=== PATIENT | female | born 1945 | race Two or more races ===

== ENCOUNTER 2024-12-11 12:16 | Outpatient (REF) | payer OTHER, SELFPAY ==
--- OUTSIDE RECORDS SUMMARY | 2024-12-11 13:19 | XMS_ITS | Encounter Summary ---
Author Organization [facility] Address [address] [place] [address] Care Team Providers Care Charge Loader Name Role Phone Naina Steve MD Primary Care Provider [phone] Reason for Visit * Reason Comments Follow-up Er follow Encounter Details Date Type Department Care Team (Late st Contact Info) Description 11/27/2024 11:30 AM EST Office Visit Adult Medicine [address] [phone] Naina Steve MD [address] [place] [phone] RSV (respiratory syncytial virus infection) (Primary Dx) Social History Tobacco Use Types Packs/Day Years Used Date Smoking Tobacco: Never Smokeless Tobacco: Never Tobacco Cessation:Counseling Given: Not Answered Alcohol Use Standard Drinks/Week Comments Never 0 (1 standard drink = 0.6 oz pur e alcohol) Sex and Gender Information Value Date Recorded Sex Assigned at Not on file Gender Identity Not on file Sexual Orientation Not on file Job Start Date Occupation Industry Not on file Not on file Not on file documented as of this encounter Last Filed Vital Signs Vital Sign Reading Time Taken Comments Blood Pressure 128/64 11/27/2024 11:25 AM EST Pulse 90 11/27/2024 11:25 AM EST Temperature 36.6 ??C (97.9 ??F) 11/27/2024 11:[address] Respiratory Rate 22 11/27/2024 11:25 AM EST Oxygen Saturation 98% 11/27/2024 11:25 AM EST Inhaled Oxygen Concentration - - Weight 61.2 kg (135 lb) 11/27/2024 11:25 AM EST Height 162.6 cm (5' 4 ) 11/27/2024 11:25 AM EST Body Mass Index 23.17 11/27/2024 11:25 AM EST documented in this encounter Ordered Prescriptions Prescription Sig Dispensed Refills Start Date End Da te albuterol HFA (Proventil HFA) 90 mcg/actuation inhaler Inhale 2 puffs by mouth every 4 (four) hours if needed for wheezing or shortness of breath. 6.7 g 11/27/2024 11/27/2025 guaiFENesin (ROBITUSSIN) 100 mg/5 mL liquid Take 10 mL (200 mg total) by mouth 3 (three) times a day if needed for cough for up to 10 days. 120 mL 11/27/2024 12/07/2024 documented in this encounter Progress Notes * Naina Steve MD - 11/27/2024 11:30 AM EST Images from the original note were not included. CHIEF COMPLAINT: Follow-up (Er follow/) IDENTIFIER: Verna Finch is a 79 y.o. old female. HPI: Patient is a 79-year-old female who is here for an ER follow-up. Patient was evaluated at [facility] on 11/25/2024 for cough and shortness of breath. Patient reported cough and shortness of breath for about 1 week associated with generalized weakness. Vitals in the ER were temp 99.1, heart rate 69, blood pressure 122/64, 97% on room air. Patient was found to be RSV positive. Blood work sodium 135, potassium 3.7, chloride 107, creatinine 0.93, WBC 5.6,hemoglobin 10.7, platelet 191. Patient underwent x-ray which did not show any acute infiltrate. Coarse reticular markings again noted in the right and left chest that are suggestive of regions of fibrosis and/or bronchiectasis. Patient underwent EKG which was reported to be normal sinus rhythm witha heart rate of 67. Patient is accompanied by her at today's visit, patient's daughter Bailee is also present via phone call. Patient has noted some improvement in her symptoms since she waS in the ER. The family has also noticed improvement in her breathing, previously she was short of breath at rest alongwith audible wheezing but according to the family that has improved, she still feels short of breath but mainly with activity (this has been a chronic symptom as she was evaluated by pulmonology recently). 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 for 30 days pantoprazole (PROTONIX) 40 mg EC tablet Take 1 tablet (40 mg total) by mouth 1 (one) time each day.for 90 days ALLERGIES: Patient has no known allergies. PHYSICAL EXAM: Blood pressure 128/64, pulse 90, temperature 36.6 ??C (97.9 ??F), temperature source Temporal, resp. rate 22, height 1.626 m (64 ), weight 61.2 kg (135 lb), SpO2 98%. Body mass index is 23.17 kg/m??.Plan is deferred until next visit APPEARANCE: Alert and in no acute distress EYES: PERRLA, conjunctiva and sclera normal HEART: RRR with normal S1 and S2, no murmurs, no gallops, no JVD appreciated LUNG: right sided crackles EXTREMITIES: Extremities warm and well perfused without clubbing, cyanosis, or edema LABS: IMPRESSION: 1. RSV (respiratory syncytial virus infection) ASSESSMENT/PLAN: Verna was seen today for follow-up. Diagnoses and all orders for this visit: RSV (respiratory syncytial virus infection) (Primary) Other orders - guaiFENesin (ROBITUSSIN) 100 mg/5 mL liquid; Take 10 mL (200 mg total) by mouth 3 (three) times aday if needed for cough for up to 10 days. - albuterol HFA (Proventil HFA) 90 mcg/actuation inhaler; Inhale 2 puffs by mouth every 4 (four) hours if needed for wheezing or shortness of breath. Plan Patient was evaluated at [facility] on 11/25/2024 for cough and shortness of breath. Patient reported cough and shortness of breath for about 1 week associated with generalized weakness. Vitals in the ER were temp 99.1, heart rate 69, blood pressure 122/64, 97% on room air. Patient was found to be RSV positive. Blood work sodium 135, potassium 3.7, chloride 107, creatinine 0.93, WBC 5.6,hemoglobin 10.7, platelet 191. Patient underwent x-ray which did not show any acute infiltrate. Coarse reticular markings again noted in the right and left chest that are suggestive of regions of fibrosis and/or bronchiectasis. Patient underwent EKG which was reported to be normal sinus rhythm witha heart rate of 67. Patient is accompanied by her at today's visit, patient's daughter Bailee is also present via phone call. Patient has noted some improvement in her symptoms since she waS in the ER. The family has also noticed improvement in her breathing, previously she was short of breath at rest alongwith audible wheezing but according to the family that has improved, she still feels short of breath but mainly with activity (this has been a chronic symptom as she was evaluated by pulmonology recently). -Patient diagnosed with RSV 2 days ago, underwent x-ray which showed chronic changes, no acute infiltrate, patient symptoms are improving, was previously short of breath at rest and wheezing, no longer short of breath at rest or audible wheezing at rest. Continues to have symptoms of shortness of breath with activity which has been present chronically for the patient to some degree. Her oxygen saturation today is 98% on room air. I have prescribed albuterol inhaler that she can take as needed with activity. She continues to have a cough, I have given a prescription for Robitussin. She denies any fevers. Patient was advised to continue monitoring symptoms and if there is any worsening like development of fever, worsening cough, shortness of breath or wheezing to contact the office. Patient and familyverbalized understanding. Of note patient was also examined and questioned by my physician accountant assistant student and is in agreement with this. No follow-ups on file. No orders of the defined types were placed in this encounter. Recent Results (from the past 672 hour(s)) Comprehensive metabolic panel Collection Time: 11/19/24 10:14 AM Result Value Ref Range Sodium 136 133 - 145 mmol/L Potassium 3.7 3.5 - 5.5 mmol/L Chloride 106 96 - 110 mmol/L CO2 23 21 - 32 mmol/L Anion Gap 7 3 - 11 Glucose 156 (H) 70 - 100 mg/dL BUN 25 5 - 25 mg/dL Creatinine 1.04 0.50 - 1.10 mg/dL eGFR 55 (L) >=60 mL/min/1.73m2 BUN/Creatinine Ratio 24.0 Calcium 9.4 8.5 - 10.5 mg/dL AST (SGOT) 10 10 - 42 unit/L ALT (SGPT) 20 10 - 60 unit/L Alkaline Phosphatase 128 (H) 42 - 121 unit/L Total Protein 8.0 6.0 - 8.0 g/dL Albumin 3.1 (L) 3.2 - 5.0 g/dL Total Bilirubin 0.4 0.0 - 1.4 mg/dL CBC auto differential Collection Time: 11/19/24 10:14 AM Result Value Ref Range WBC 11.6 (H) 4.8 - 10.8 K/mcL RBC 3.50 (L) 3.80 - 4.80 M/mcL Hemoglobin 11.5 11.5 - 16.0 g/dL Hematocrit 36.5 35.0 - 47.0 % MCV 105.8 (H) 79.0 - 98.0 FL MCH 33.3 (H) 27.0 - 32.0 pcg MCHC 31.5 (L) 32.0 - 37.0 g/dL RDW 14.5 11.0 - 15.0 % Platelets 279 130 - 400 K/mcL MPV 10.5 7.0 - 11.0 FL NRBC 0.0 <1.0 % NRBC Absolute 0.00 <0.10 K/mcL Neutrophils Relative 72.9 % Lymphocytes Relative 17.9 % Monocytes Relative 8.0 % Eosinophils Relative 0.0 % Basophils Relative 0.2 % Immature Granulocytes Relative 1.0 % Neutrophils Absolute 8.47 (H) 1.50 - 7.00 K/mcL Lymphocytes Absolute 2.08 1.00 - 5.00 K/mcL Monocytes Absolute 0.93 0.20 - 1.00 K/mcL Eosinophils Absolute 0.00 0.00 - 0.50 K/mcL Basophils Absolute 0.02 0.00 - 0.20 K/mcL Immature Granulocytes Absolute 0.12 (H) 0.00 - 0.03 K/mcL Respiratory virus panel molecular study Collection Time: 11/25/24 1:59 PM Specimen: Nares; Swab Result Value Ref Range Adenovirus Detection by PCR Not Detected Not Detected Influenza A PCR Not Detected Not Detected Influenza B PCR Not Detected Not Detected Coronavirus 229E Not Detected Not Detected Coronavirus HKU1 Not Detected Not Detected Coronavirus OC43 Not Detected Not Detected Coronavirus NL63 Not Detected Not Detected Parainfluenza Virus 1 Not Detected Not Detected Parainfluenza Virus 2 Not Detected Not Detected Parainfluenza Virus 3 Not Detected Not Detected Parainfluenza Virus 4 Not Detected Not Detected RSV PCR Detected (A) Not Detected Human Metapneumovirus A and B Not Detected Not Detected Rhinovirus/Enterovirus Not Detected Not Detected Bordetella pertussis Not Detected Not Detected Bordetella parapertussis Not Detected Not Detected Mycoplasma pneumo by PCR Not Detected Not Detected Chlamydia pneumoniae Not Detected Not Detected SARS COV-2 Not Detected Not Detected Basic metabolic panel Collection Time: 11/25/24 2:06 PM Result Value Ref Range Sodium 135 133 - 145 mmol/L Potassium 3.7 3.5 - 5.5 mmol/L Chloride 107 96 - 110 mmol/L CO2 24 21 - 32 mmol/L Anion Gap 4 3 - 11 Glucose 153 (H) 70 - 100 mg/dL BUN 19 5 - 25 mg/dL Creatinine 0.93 0.50 - 1.10 mg/dL eGFR 63 >=60 mL/min/1.73m2 BUN/Creatinine Ratio 20.4 Calcium 8.7 8.5 - 10.5 mg/dL CBC auto differential Collection Time: 11/25/24 2:06 PM Result Value Ref Range WBC 5.6 4.8 - 10.8 K/mcL RBC 3.20 (L) 3.80 - 4.80 M/mcL Hemoglobin 10.7 (L) 11.5 - 16.0 g/dL Hematocrit 32.8 (L) 35.0 - 47.0 % MCV 102.2 (H) 79.0 - 98.0 FL MCH 33.3 (H) 27.0 - 32.0 pcg MCHC 32.6 32.0 - 37.0 g/dL RDW 14.2 11.0 - 15.0 % Platelets 191 130 - 400 K/mcL MPV 9.6 7.0 - 11.0 FL NRBC 0.0 <1.0 % NRBC Absolute 0.00 <0.10 K/mcL Manual differential Collection Time: 11/25/24 2:06 PM Result Value Ref Range Neutrophils % 55.0 % Bands % 10.0 % Lymphocytes % 30.0 % Monocytes % 4.0 % Eosinophils % 0.0 % Basophils % 0.0 % Metamyelocytes % 1.0 (H) % Neutrophils Absolute Manual 3.08 1.50 - 7.00 K/mcL Bands Absolute Manual 0.56 (H) 0.00 - 0.00 K/mcL Lymphocytes Absolute 1.68 1.00 - 5.00 K/mcL Monocytes Absolute Manual 0.22 0.20 - 1.00 K/mcL Eosinophils Absolute Manual 0.00 0.00 - 0.50 K/mcL Basophils Absolute Manual 0.00 0.00 - 0.20 K/mcL Metamyelocytes Absolute Manual 0.06 (H) 0.00 - 0.00 K/mcL Rbc Morphology Consistent with indices Consistent with indices, Normal for [place] Platelet Morphology - WAM Normal Normal Vacuolated Neutrophils Present Present (A) (none) ECG 12 lead Collection Time: 11/25/24 3:26 PM Result Value Ref Range Ventricular Rate ECG 67 BPM Atrial Rate 67 BPM P-R Interval 144 ms QRS Duration 84 ms Q-T Interval 434 ms QTc 458 ms P Wave [place] 45 degrees R [place] 12 degrees T [place] 86 degrees ECG Interpretation Normal sinus rhythm Left ventricular hypertrophy with repolarization abnormality Abnormal ECG When compared with ECG of 18-FEB-2024 14:57, Premature ventricular complexes are no longer Present Non-specific change in ST segment in Anterior leads Confirmed by Anderson CHEUNG, [facility] ([id number]) on 11/26/2024 6:29:12 AM Naina Steve MD on 11/27/2024 at 5:07 PM EST documented in this encounter Plan of Treatment Upcoming Encounters Date Type Department Care Team (Late st Contact Info) Description 02/25/2025 9:15 AM EDT Office Visit [facility] Hematology Oncology [address] [place] [id number] Jose Francisco Izquierdo MD [address] [place] [address] 03/06/2025 1:15 PM EDT Office Visit Adult Medicine [facility] [place] [place] [address] [place] [address] Naina Steve MD [address] [place] [address] documented as of this encounter Visit Diagnoses Diagnosis RSV (respiratory syncytial virus infection)- Primary Respiratory syncytial virus (RSV) documented in this encounter Discontinued Medications Medication Sig Discontinue Reason Start Date End Da te metoprolol tartrate (LOPRESSOR) 25 mg tablet Take 0.5 tablets (12.5 mg total) by mouth 3 (three) times a day. Alternate therapy 09/28/2024 11/27/2024 amLODIPine (NORVASC) 2.5 mg tablet Take 1 tablet (2.5 mg total) by mouth 1 (one) time each day at the same time. Therapy completed 11/27/2024 documented as of this encounter Historical Medications * This list may reflect changes made after this encounter. Medication Sig Dispensed Refills Start Date End Date pantoprazole (PROTONIX) 40 mg EC tablet Take 1 tablet (40 mg total) by mouth 1 (one) time each day. for 90 days 08/09/2024 metoprolol succinate (TOPROL-XL) 25 mg 24 hr tablet Take 1 tablet (25 mg total) by mouth 1 (one) time each day. for 30 days 11/16/2024 added in this encounter Additional Health Concerns Infection Onset Date Last Indicated Resolved Time RSV 11/25/2024 11/25/2024 documented as of this encounter Care Teams Charge Loader Relationship Specialty Start Date End Date Naina Steve MD [address] [place] [id number] PCP - General 11/09/23 documented as of this encounter
--- OUTSIDE RECORDS SUMMARY | 2024-12-11 13:19 | XMS_ITS | Clinical Summary ---
Author Organization [facility] Address [address] [place] [address] Care Team Providers Care Database Administration Project Manager Name Role Phone Naina Steve MD Primary Care Provider [phone] Allergies No known active allergies Medications Medication Sig Dispensed Refills Start Date End Date Status amLODIPine (NORVASC) tablet 2.5 mg Take 1 tablet (2.5 mg total) by mouth daily. 0 Active metoprolol succinate (TOPROL-XL) 24 hr tablet 25 mg Take by mouth daily. 0 Active lisinopril (PRINIVIL,ZESTRIL) tablet 10 mg Take 1 tablet (10 mg total) by mouth daily. 0 Active Apoaequorin (Prevagen Extra Strength) 20 MG CAPS Take by mouth. 0 Active dexamethasone (DECADRON) 4 MG tablet Take 3 tablets (12 mg total) by mouth once a week. 36 tablet 3 07/31/2024 Active ondansetron (ZOFRAN) 4 MG tabletIndications:Sm oldering myeloma Take 1 tablet (4 mg total) by mouth every 8 (eight) hours as needed for nausea. 10 tablet 1 08/06/2024 Active pomalidomide (Pomalyst) 2 MG capsule TAKE 1 CAPSULE (2MG) BY MOUTH DAILY FOR 21 DAYS FOLLOWED BY 7 DAYS OFF 21 capsule 0 08/28/2024 Active Active Problems No known active problems Social History Tobacco Use Types Packs/Day Years Used Date Smoking Tobacco: Never Smokeless Tobacco: Never Alcohol Use Standard Drinks/Week Comments No 0 (1 standard drink = 0.6 oz pur e alcohol) Sex and Gender Information Value Date Recorded Sex Assigned at Not on file Gender Identity Not on file Sexual Orientation Not on file Job Start Date Occupation Industry Not on file Not on file Not on file Last Filed Vital Signs Vital Sign Reading Time Taken Comments Blood Pressure 170/68 07/30/2024 9:49 AM EDT Pulse 52 07/30/2024 9:49 AM EDT Temperature 36.8 ??C (98.3 ??F) 07/30/2024 9:49 AM ED T Respiratory Rate - - Oxygen Saturation 100% 07/30/2024 9:49 AM EDT Inhaled Oxygen Concentration - - Weight 62.6 kg (138 lb) 07/30/2024 9:49 AM EDT Height 161.3 cm (5' 3.5 ) 04/27/2024 10:35 AM ED T Body Mass Index 24.06 04/27/2024 10:35 AM EDT Plan of Treatment Health Maintenance Due Date Last Done Comments Depression Screening 1958 Preventative Health Evaluation 1964 Shingrix-Zoster Vaccine (1 of 2) 1965 Fall Risk Assessment 2011 Osteoporosis Screening (DEXA Scan) 2011 Pneumococcal Vaccine (2 of 2 - PCV) 10/29/2011 10/29/2010 RSV Adult > 60+ Yrs or (1 - 1-dose 75+ series) 2021 COVID-19 Vaccine ( - season) 2024 04/19/2022, 09/23/2021, 02/13/2021, Additional history exists Influenza Vaccine (#1) 2024 , 09/07/2022, 09/23/2021, Additional history exists DTap / Tdap / Td (2 - Td or Tdap) 08/20/2029 08/20/2019 Hepatitis C Screening Completed 05/04/2022 Hepatitis B Vaccines Aged Out No long er eligible based on patient's age to complete this topic RSV Ped < 20 months Aged Out No longe r eligible based on patient's age to complete this topic Care Teams Database Administration Project Manager Relationship Specialty Start Date End Date Naina Steve MD [address] [place] [id number] PCP - General Internal Medicine 12/23/23
--- OUTSIDE RECORDS SUMMARY | 2024-12-11 13:19 | XMS_ITS | Encounter Summary ---
Author Organization [facility] Address [address] [place] [address] Care Team Providers Care Lift Builder Whole Name Role Phone Naina Steve MD Primary Care Provider [phone] Reason for Visit * Reason Comments Follow-up Encounter Details Date Type Department Care Team (Late st Contact Info) Description 11/26/2024 9:45 AM EST Office Visit [facility] Hematology Oncology [address] [place] [id number] Jose Francisco Izquierdo MD [address] [place] [address] Smoldering multiple myeloma (SMM) (Primary Dx) Social History Tobacco Use Types Packs/Day Years Used Date Smoking Tobacco: Never Smokeless Tobacco: Never Alcohol Use Standard Drinks/Week Comments Never 0 [...] Sign Reading Time Taken Comments Blood Pressure 141/65 11/26/2024 9:50 AM EST Pulse 83 11/26/2024 9:50 AM EST Temperature 35.6 ??C (96.1 ??F) 11/26/2024 9:50 AM ES T Respiratory Rate - - Oxygen Saturation 100% 11/26/2024 9:50 AM EST Inhaled Oxygen Concentration - - Weight 63 kg (139 lb) 11/26/2024 9:50 AM EST Height - - Body Mass Index 23.13 11/25/2024 1:59 PM EST documented in this encounter Progress Notes * Jose Francisco Izquierdo MD - 11/26/2024 9:45 AM EST ONC CANCER FOLLOW UP CHIEF COMPLAINT: Follow-up IDENTIFIER:Verna Finch is a 79 y.o. female. 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 Oncology History Overview Note Patient found to have IgG kappa monoclonal gammopathy during the routine work-up in 2014, patient has no evidence of significant plasma cell disease progression for a while, patient was on surveillance for MGUS Patient sensed 2019 has been having some symptoms of fatigue, also developing some worsening anemiaand mild renal insufficiency Patient because of her mild worsening symptom underwent bone marrow biopsy in fall, bone marrow biopsy showed 10 to 15% plasma cell infiltration (IgG kappa restricted monoclonal disease), patient clearly has at least smoldering myeloma but decision made not to treat because patient was undergoing treatment of pulmonary fibrosis by her water meter mechanic (Dr. Treviño), she was getting Ofve Patient lab were getting worse (in the spring 2022), IgG was more than 5 g so we started patient inthe spring 2022 on Revlimid 25 mg day 1 today 21 with dexamethasone 20 mg weekly, patient toleratedtreatment well but unfortunately in May patient admitted to hospital with ischemic colitis. Patient was also planning to go to [place] so decision made to hold Revlimid until reassessment in September 2023 Patient in 2023 started on oral Pomalyst (there was a question of some side effect of Revlimid), with weekly low-dose dexamethasone PAST MEDICAL HISTORY: Patient Active Problem List Diagnosis Smoldering multiple myeloma (SMM) Primary hypertension Past Medical History: Diagnosis Date Anemia DX:Anemia Anemia 03/16/2021 DX:Anemia Bilateral cataracts 03/16/2021 DX:Bilateral cataracts Chronic bronchitis (CMS/HCC) DX:Chronic bronchitis (HCC) Diabetes mellitus (CMS/HCC) DX:Diabetes mellitus (HCC) Esophageal ulcer DX:Esophageal ulcer Generalized anxiety disorder 03/16/2021 DX:Generalized anxiety disorder GERD (gastroesophageal reflux disease) DX:GERD (gastroesophageal reflux disease) GERD without esophagitis 03/16/2021 DX:GERD without esophagitis Heart disease DX:Heart disease History of 2019 novel coronavirus disease (COVID-19) 10/2020 DX:History of 2019 novel coronavirus disease (COVID-19); COMMENT: mild case/ no hospitalization History of atopic dermatitis 03/16/2021 DX:History of atopic dermatitis Hypertension DX:Hypertension Hypertension 03/16/2021 DX:Hypertension Migraine with aura, not intractable, without status migrainosus 03/16/2021 DX:Migraine with aura, not intractable, without status migrainosus Monoclonal gammopathy DX:Monoclonal gammopathy Multiple myeloma (CMS/HCC) 03/16/2021 DX:Multiple myeloma ([facility]); COMMENT: Sees Dr. Izquierdo Osteoporosis DX:Osteoporosis Osteoporosis 03/16/2021 DX:Osteoporosis Pulmonary fibrosis ([facility]) PVC (premature ventricular contraction) 03/17/2021 DX:PVC (premature ventricular contraction); COMMENT: Sees Dr. Taurus Rich had holter and echo completed Stress incontinence 03/16/2021 DX:Stress incontinence Uterine procidentia 03/17/2021 DX:Uterine procidentia UTI (urinary tract infection) 03/16/2021 DX:UTI (urinary tract infection) Varicose veins of both legs with edema 03/16/2021 DX:Varicose veins of both legs with edema Vitamin D deficiency DX:Vitamin D deficiency Vitamin D deficiency 03/16/2021 DX:Vitamin D deficiency SOCIAL HISTORY: Social History Tobacco Use Smoking status: Never Smokeless tobacco: Never Substance Use Topics Alcohol use: Never FAMILY HISTORY: Family History Problem Relation Name Age of Onset Alzheimer's disease Mother Hypertension Father Family Status Relation Name Status Mother Father No partnership data on file Current Outpatient Medications: amLODIPine (NORVASC) 2.5 mg tablet, Take 1 tablet (2.5 mg total) by mouth 1 (one) time each day at the same time., Disp: , Rfl: aspirin 81 mg EC tablet, Take 1 tablet (81 mg total) by mouth 1 (one) time each day., Disp: , Rfl: dexAMETHasone (DECADRON) 4 mg tablet, Take 3 tabs(12 mg) by mouth once a week, Disp: 36 each, Rfl: 11 levothyroxine (SYNTHROID, LEVOTHROID) 50 mcg tablet, Take 1 tablet (50 mcg total) by mouth 1 (one) time each day before breakfast., Disp: 90 tablet, Rfl: 1 losartan (COZAAR) 50 mg tablet, TAKE 1 AND 1/2 TABLETS BY MOUTH DAILY, Disp: 135 tablet, Rfl: 1 Pomalyst 2 mg capsule, TAKE 1 CAPSULE (2MG) BY MOUTH DAILY FOR 21 DAYS FOLLOWED BY 7 DAYS OFF, Disp: 21 capsule, Rfl: 0 metoprolol tartrate (LOPRESSOR) 25 mg tablet, Take 0.5 tablets (12.5 mg total) by mouth 3 (three) times a day., Disp: , Rfl: No Known Allergies PHYSICAL EXAM: Visit Vitals BP (!) 141/65 (BP Location: Left arm, Patient Position: Sitting, BP Cuff Size: Adult) Pulse 83 Temp 35.6 ??C (96.1 ??F) (Temporal) Wt 63 kg (139 lb) SpO2 100% BMI 23.13 kg/m?? OB Status Postmenopausal Smoking Status Never BSA 1.7 m?? ECOG 1 APPEARANCE: Alert and oriented in no acute distress EYES: nonicteric sclera pink conjunctiva ORAL CAVITY: No mild erythema of oropharynx NECK: Neck supple, no cervical adenopathy, HEART: normal S1 and S2 LUNG: Distant breath sound otherwise clear bilaterally LYMPH NODES: No palpable superficial adenopathy ABDOMEN: soft, nontender and no organomegaly appreciated EXTREMITIES: No edema team [place] LABS: BUN 19, creatinine 0.93 and calcium 8.7 WBC 5.6, hemoglobin 10.7 g, hematocrit 32.8% and platelet count 1 91,000 IMPRESSION: 1. Smoldering multiple myeloma (SMM) 2........ URI secondary to RSV 79-year-old posterior speaking female, who has IgG kappa multiple myeloma, most likely smoldering myeloma, currently patient has been on Pomalyst with low-dose dexamethasone, which she has been tolerating well, labs are stable except because of RSV she is not feeling well as well as more anemic. I discussed with patient and her family about her URI as well as recommend to hold Pomalyst and dexamethasone this week and restart Pomalyst from following week. I discussed with the patient and family again about her plasma cell disease, risk benefit of therapeutic intervention etc. PLAN: Recommend to hold Pomalyst this week as well as dexamethasone and restart following week I will check labs prior to next visit in 3 months Jose Francisco Izquierdo MD Results: WBC Date Value Ref Range Status 11/25/2024 5.6 4.8 - 10.8 K/mcL Final Hemoglobin Date Value Ref Range Status 11/25/2024 10.7 (L) 11.5 - 16.0 g/dL Final Hematocrit Date Value Ref Range Status 11/25/2024 32.8 (L) 35.0 - 47.0 % Final Platelets Date Value Ref Range Status 11/25/2024 191 130 - 400 K/mcL Final Creatinine Date Value Ref Range Status 11/25/2024 0.93 0.50 - 1.10 mg/dL Final AST (SGOT) Date Value Ref Range Status 11/19/2024 10 10 - 42 unit/L Final documented in this encounter Plan of Treatment Upcoming Encounters Date Type Department Care Team (Late st Contact Info) Description 02/25/2025 9:15 AM EDT Office Visit [facility] Hematology Oncology [address] [place] [address] Jose Francisco Izquierdo MD [address] [place] [address] 03/06/2025 1:15 PM EDT Office Visit [address] [phone] Naina Steve MD [address] [place] [phone] Scheduled Orders Name Type Priority Associated Diagnoses Orde r Schedule CBC and differential Lab Routine Smoldering multiple myeloma (SMM) Expected: 01/28/2025, Expires: 11/26/2025 Comprehensive metabolic panel Lab Routine Smoldering multiple myeloma (SMM) Expected: 01/28/2025, Expires: 11/26/2025 Immunoglobulins IgG, IgA, IgM Lab Routine Smoldering multiple myeloma (SMM) Expected: 01/28/2025, Expires: 11/26/2025 documented as of this encounter Visit Diagnoses Diagnosis Smoldering multiple myeloma (SMM)- Primary Multiple myeloma, without mention of having achieved remission documented in this encounter Additional Health Concerns Infection Onset Date Last Indicated Resolved Time RSV 11/25/2024 11/25/2024 documented as of this encounter Care Teams Lift Builder Whole Relationship Specialty Start Date End Date Naina Steve MD [address] [place] [id number] PCP - General 11/09/23 documented as of this encounter
--- OUTSIDE RECORDS SUMMARY | 2024-12-11 13:19 | XMS_ITS | Encounter Summary ---
Author Organization [facility] Address [address] [place] [address] Care Team Providers Care Help Desk Team Leader Name Role Phone Naina Steve MD Primary Care Provider [phone] Reason for Visit * Reason Comments Shortness of Breath Encounter Details Date Type Department Care Team (Late st Contact Info) Description 11/25/2024 1:27 PM EST - 11/25/2024 4:35 PM EST Emergency [facility] Emergency [address] [place] [address] RSV (acute bronchiolitis due to respiratory syncytial virus) (Primary Dx) Discharge Disposition: Home or Self Care Social History Tobacco Use Types Packs/Day Years [...] Sign Reading Time Taken Comments Blood Pressure 130/71 11/25/2024 3:33 PM EST Pulse 71 11/25/2024 3:33 PM EST Temperature 36.7 ??C (98.1 ??F) 11/25/2024 3:33 PM ES T Respiratory Rate 18 11/25/2024 3:33 PM EST Oxygen Saturation 98% 11/25/2024 3:33 PM EST Inhaled Oxygen Concentration - - Weight 61.2 kg (135 lb) 11/25/2024 1:59 PM EST Height 165.1 cm (5' 5 ) 11/25/2024 1:59 PM EST Body Mass Index 22.47 11/25/2024 1:59 PM EST documented in this encounter Discharge Instructions * Discharge Instructions* MIKE Fish - 11/25/2024 4:03 PM EST You may take ibuprofen or Tylenol as needed if you develop a fever. Please return to the emergency department at anytime for increasing shortness of breath, chest pain or weakness. I would like you to follow-up with your primary care physician within 1 week for a reevaluation of your symptoms. Follow up with your primary provider. Call tomorrow for appointment. Return to Emergency Department if symptoms worsen, do not improve, or any other concern. Get well soon! Thank you for coming to the [facility] Emergency Department today. Our entire team works together to provide you with the best care possible. Examination and treatment you received in the emergency department has been rendered on an EMERGENCY basis only. It is not intended to be a substitute for or an effort to provide complete medical care. You should follow-up with your primary care provider. Please report to your physician any new or remaining problems, because it is impossible to recognize and treat all elements of injury or illness in a single emergency department visit. In the event that you're unable to obtain a followup appointment in a timely fashion, OR you are not getting any better, OR you are getting worse, OR you develop any symptoms of concern, please return here immediately for further evaluation. The emergency department is open 24 hours a day, 7 days aweek. Your discharge report is based on information that was available when you were in the emergency department. If you do not have a primary care provider, please contact one of the following to make arrangements to follow up. [facility] * Attachments The following attachments cannot be sent through Care Everywhere. * Infection: Respiratory Syncytial Virus (RSV) (Vietnamese) documented in this encounter Medications at Time of Discharge Medication Sig Dispensed Refills Start Date End Date aspirin 81 mg EC tablet Take 1 tablet (81 mg total) by mouth 1 (one) time each day. dexAMETHasone (DECADRON) 4 mg tabletIndications:Smol dering multiple myeloma (SMM) Take 3 tabs(12 mg) by mouth once a week 36 each 11 10/15/2024 levothyroxine (SYNTHROID, LEVOTHROID) 50 mcg tablet Take 1 tablet (50 mcg total) by mouth 1 (one) time each day before breakfast. 90 tablet 1 10/08/2024 losartan (COZAAR) 50 mg tablet TAKE 1 AND 1/2 TABLETS BY MOUTH DAILY 135 tablet 1 10/23/2024 metoprolol succinate (TOPROL-XL) 25 mg 24 hr tablet Take 1 tablet (25 mg total) by mouth 1 (one) time each day. for 30 days 11/16/2024 pantoprazole (PROTONIX) 40 mg EC tablet Take 1 tablet (40 mg total) by mouth 1 (one) time each day. for 90 days 08/09/2024 amLODIPine (NORVASC) 2.5 mg tablet Take 1 tablet (2.5 mg total) by mouth 1 (one) time each day at the same time. 11/27/2024 metoprolol tartrate (LOPRESSOR) 25 mg tablet Take 0.5 tablets (12.5 mg total) by mouth 3 (three) times a day. 09/28/2024 11/27/2024 Pomalyst 2 mg capsule TAKE 1 CAPSULE (2MG) BY MOUTH DAILY FOR 21 DAYS FOLLOWED BY 7 DAYS OFF 21 capsule 10/26/2024 11/28/2024 documented as of this encounter Discharge Disposition Disposition Code Departure Means Destination Comment s Home or Self Care documented in this encounter Progress Notes * Elma Danielle RN - 11/25/2024 1:29 PM EST Biba from home, pt reports over past week diff breathing with chills. Non productive cough. * MIKE Fish - 11/25/2024 1:24 PM EST Emergency Medicine Note Patient Name: Verna Finch Initial Evaluation: 11/25/2024 : 1945 Patient's PCP: Naina Steve MD Emergency Physician: MIKE Ye History of Present Illness Chief Complaint: Chief Complaint Patient presents with Shortness of Breath Is a 79-year-old female with a past medical history of interstitial lung disease, multiple myeloma,gastroesophageal reflux disease, hypothyroidism and hypertension presenting from urgent care for evaluation of cough and shortness of breath. Patient's states that she has had a cough for thepast 1 week with shortness of breath and generalized weakness. Patient denies having any fevers, chills, hemoptysis, nausea, vomiting or chest pain. ROS: I have performed a ROS with the pertinent positives and negatives documented in the history ofpresent illness. Previous History Past Medical History: Diagnosis Date Anemia DX:Anemia [...] gammopathy Multiple myeloma (CMS/HCC) 03/16/2021 DX:Multiple myeloma ([facility]); COMMENT: Sees Dr. Izquierdo Osteoporosis DX:Osteoporosis Osteoporosis 03/16/2021 DX:Osteoporosis Pulmonary fibrosis ([facility]/HCC) PVC (premature ventricular contraction) 03/17/2021 DX:PVC (premature [...] Vitamin D deficiency 03/16/2021 DX:Vitamin D deficiency Past Surgical History: Procedure Laterality Date CHOLECYSTECTOMY PROCEDURE:CHOLECYSTECTOMY CHOLECYSTECTOMY 1993 PROCEDURE: HISTORICAL CHOLECYSTECTOMY; COMMENT: Dr. Garcia COLONOSCOPY 02/27/2007 PROCEDURE: HISTORICAL COLONOSCOPY TONSILLECTOMY PROCEDURE:TONSILLECTOMY TONSILLECTOMY PROCEDURE: HISTORICAL TONSILLECTOMY Social History Tobacco Use Smoking status: Never Smokeless tobacco: Never Substance Use Topics Alcohol use: Never Drug use: Never Family History Problem Relation Name Age of Onset Alzheimer's disease Mother Hypertension Father has No Known Allergies. No current facility-administered medications on file prior to encounter. Current Outpatient Medications on File Prior to Encounter Medication Sig Dispense Refill amLODIPine (NORVASC) 2.5 mg tablet Take 1 tablet (2.5 mg total) by mouth 1 (one) time each day at the same time. aspirin 81 mg EC tablet Take 1 tablet (81 mg total) by mouth 1 (one) time each day. dexAMETHasone (DECADRON) 4 mg tablet Take 3 tabs(12 mg) by mouth once a week 36 each 11 levothyroxine (SYNTHROID, LEVOTHROID) 50 mcg tablet Take 1 tablet (50 mcg total) by mouth 1 (one) time each day before breakfast. 90 tablet 1 losartan (COZAAR) 50 mg tablet TAKE 1 AND 1/2 TABLETS BY MOUTH DAILY 135 tablet 1 metoprolol tartrate (LOPRESSOR) 25 mg tablet Take 0.5 tablets (12.5 mg total) by mouth 3 (three) times a day. Pomalyst 2 mg capsule TAKE 1 CAPSULE (2MG) BY MOUTH DAILY FOR 21 DAYS FOLLOWED BY 7 DAYS OFF 21 capsule 0 Physical Exam ED Triage Vitals [11/25/24 1423] Temp Heart Rate Resp BP 37.3 ??C (99.1 ??F) 69 -- 122/64 SpO2 Temp src Heart Rate Source Patient Position 97 % -- -- -- BP Location FiO2 (%) -- -- Physical Exam General: awake, calm, cooperative, no apparent distress, vital signs reviewed, patient is afebrile Skin: warm, dry, no diaphoresis Eyes: EOMI, no photophobia, no nystagmus ENT: mucosa is moist, throat is clear Respiratory: fine crackles bases bilaterally, no tachypnea Cardiovascular: regular rate and rhythm, no murmur Gastrointestinal: soft, nontender, abdomen is nondistended Neurological: alert and oriented X3, no focal deficits Psychiatric: stable mood and affect, fluid speech, good eye contact and appropriate demeanor Results Labs Reviewed RESPIRATORY VIRUS PANEL MOLECULAR STUDY - Abnormal Result Value Adenovirus Detection by PCR Not Detected Influenza A PCR Not Detected Influenza B PCR Not Detected Coronavirus 229E Not Detected Coronavirus HKU1 Not Detected Coronavirus OC43 Not Detected Coronavirus NL63 Not Detected Parainfluenza Virus 1 Not Detected Parainfluenza Virus 2 Not Detected Parainfluenza Virus 3 Not Detected Parainfluenza Virus 4 Not Detected RSV PCR Detected (*) Human Metapneumovirus A and B Not Detected Rhinovirus/Enterovirus Not Detected Bordetella pertussis Not Detected Bordetella parapertussis Not Detected Mycoplasma pneumo by PCR Not Detected Chlamydia pneumoniae Not Detected SARS COV-2 Not Detected Narrative: Testing was performed using the [employer] Respiratory Pathogen PCR Assay. All results must be correlated with the clinical findings. Results should not be used as the sole basis for diagnosis. False Negative results may occur from the presence of sequence variants in the region targeted by the assay or the presence of inhibitors. Results may be affected by concurrent antiviral/antimicrobial therapy or levels of organisms that are below the limit of detection. BASIC METABOLIC PANEL - Abnormal Sodium 135 Potassium 3.7 Chloride 107 CO2 24 Anion Gap 4 Glucose 153 (*) BUN 19 Creatinine 0.93 eGFR 63 BUN/Creatinine Ratio 20.4 Calcium 8.7 CBC WITH AUTO DIFFERENTIAL - Abnormal WBC 5.6 RBC 3.20 (*) Hemoglobin 10.7 (*) Hematocrit 32.8 (*) MCV 102.2 (*) MCH 33.3 (*) MCHC 32.6 RDW 14.2 Platelets 191 MPV 9.6 NRBC 0.0 NRBC Absolute 0.00 MANUAL DIFFERENTIAL - INSTRUMENT DIFFERENTIAL - Abnormal Neutrophils % 55.0 Bands % 10.0 Lymphocytes % 30.0 Monocytes % 4.0 Eosinophils % 0.0 Basophils % 0.0 Metamyelocytes % 1.0 (*) Neutrophils Absolute Manual 3.08 Bands Absolute Manual 0.56 (*) Lymphocytes Absolute 1.68 Monocytes Absolute Manual 0.22 Eosinophils Absolute Manual 0.00 Basophils Absolute Manual 0.00 Metamyelocytes Absolute Manual 0.06 (*) Rbc Morphology Consistent with indices Platelet Morphology - WAM Normal Vacuolated Neutrophils Present Present (*) CBC AND DIFFERENTIAL Narrative: The following orders were created for panel order CBC and differential. Procedure Abnormality Status --------- ------ CBC auto differential[[id number]] Abnormal Final result Please view results for these tests on the individual orders. Abnormal Labs Reviewed RESPIRATORY VIRUS PANEL MOLECULAR STUDY - Abnormal; Notable for the following components: Result Value RSV PCR Detected (*) All other components within normal limits Narrative: Testing was performed using the [employer] Respiratory Pathogen PCR Assay. All results must be correlated with the clinical findings. Results should not be used as the sole basis for diagnosis. False Negative results may occur from the presence of sequence variants in the region targeted by the assay or the presence of inhibitors. Results may be affected by concurrent antiviral/antimicrobial therapy or levels of organisms that are below the limit of detection. BASIC METABOLIC PANEL - Abnormal; Notable for the following components: Glucose 153 (*) All other components within normal limits CBC WITH AUTO DIFFERENTIAL - Abnormal; Notable for the following components: RBC 3.20 (*) Hemoglobin 10.7 (*) Hematocrit 32.8 (*) MCV 102.2 (*) MCH 33.3 (*) All other components within normal limits MANUAL DIFFERENTIAL - INSTRUMENT DIFFERENTIAL - Abnormal; Notable for the following components: Metamyelocytes % 1.0 (*) Bands Absolute Manual 0.56 (*) Metamyelocytes Absolute Manual 0.06 (*) Vacuolated Neutrophils Present Present (*) All other components within normal limits XR Chest 2 Views Final Result No acute infiltrate is visualized. Coarse reticular markings are again noted in the right and left chest that are suggestive of regions of fibrosis and/or bronchiectasis. Mediastinum appears normal. -------- FINAL REPORT -------- Dictated By: Greg Barnes Dictated Date: 11/25/2024 14:20 ET Assigned Physician: Greg Barnes Reviewed and Electronically Signed By: Greg Barnes Signed Date: 11/25/2024 14:22 ET Workstation ID: [id number] Transcribed By: Self Edit Transcribed Date: 11/25/2024 14:20 ET I have discussed the incidental/abnormal imaging and/or lab abnormalities with the patient and haveinstructed them the need for further evaluation and workup with their primary care doctor. The laboratory results, imaging results and other diagnostic exam results were reviewed in the EMR. EKG Interpretation Normal sinus rhythm rate of 67 bpm Critical Care Time None ? Differential Diagnosis Medical Decision Making Medical Decision Making Patient is evaluated. EMS states that her chest x-ray at urgent care was abnormal however further details are not available. Laboratories and EKG and chest x-ray are pending. Medications - No data to display ED Course as of 11/25/24 1604 Sun Nov 25, 2024 1445 There is no acute infiltrate visualized on chest x-ray. Coarse reticular markings are again noted in the right and left chest that are suggestive of regions of fibrosis and/or bronchiectasis. Betrays and respiratory panel are pending. [RB] 1553 Respiratory panel is positive for RSV. Patient is not hypoxic and will be discharged home. [RB] ED Course User Index [RB] MIKE Fish Clinical Impressions as of 11/25/24 1604 RSV (acute bronchiolitis due to respiratory syncytial virus) Procedures Procedures Diagnosis 1. RSV (acute bronchiolitis due to respiratory syncytial virus) Disposition Discharge ED Prescriptions None Physician Attestation MIKE Fish 11/25/24 1447 MIKE Fish 11/25/24 1535 MIKE Fish 11/25/24 1604 documented in this encounter Plan of Treatment Upcoming Encounters Date Type Department Care Team (Late st Contact Info) Description 02/25/2025 9:15 AM EDT Office Visit [facility] Hematology Oncology [address] [place] [id number] Jose Francisco Izquierdo MD [address] [place] [address] 03/06/2025 1:15 PM EDT Office Visit [address] [phone] Naina Steve MD [address] [place] [address] documented as of this encounter Procedures Procedure Name Priority Date/Time Associated Diagnosis Comments ECG 12-LEAD STAT 11/25/2024 3:26 PM EST XR CHEST 2 VIEWS STAT 11/25/2024 2:17 PM EST MANUAL DIFFERENTIAL - SYSMEX WAM STAT 11/25/2024 2:06 PM EST CBC WITH AUTO DIFFERENTIAL STAT 11/25/2024 2:06 PM EST CBC AND DIFFERENTIAL STAT 11/25/2024 2:06 PM EST BASIC METABOLIC PANEL STAT 11/25/2024 2:06 PM EST RESPIRATORY VIRUS PANEL MOLECULAR STUDY STAT 11/25/2024 1:59 PM EST ECG ANNOTATED 11/25/2024 documented in this encounter Results * ECG 12 lead (11/25/2024 3:26 PM EST) Ventricular Rate ECG 67 BPM GEMUSE Atrial Rate 67 BPM GEMUSE P-R Interval 144 ms GEMUSE QRS Duration 84 ms GEMUSE Q-T Interval 434 ms GEMUSE QTc 458 ms GEMUSE P Wave [place] 45 degrees GEMUSE R [place] 12 degrees GEMUSE T [place] 86 degrees GEMUSE ECG Interpretation Normal sinus rhythm Left ventricular hypertrophy with repolarization abnormality Abnormal ECG When compared with ECG of 18-FEB-2024 14:57, Premature ventricular complexes are no longer Present Non-specific change in ST segment in Anterior leads Confirmed by Anderson CHEUNG, YELITZA ([id number]) on 11/26/2024 6:29:12 AM GEMUSE 11/25/2024 3:26 PM EST 11/26/2024 6:29 AM EST Scooby David MD ECG ORDERABLES GEMUSE * XR Chest 2 Views (11/25/2024 2:17 PM EST) Anatomical Region Laterality Modality Body Radiographic Zaynab ging 11/25/2024 2:20 PM EST Impressions 11/25/2024 2:22 PM EST No acute infiltrate is visualized. ??Coarse reticular markings are again noted in the right and left chest that are suggestive of regions of fibrosis and/or bronchiectasis. ??Mediastinum appears normal. -------- FINAL REPORT -------- Dictated By: Greg Barnes Dictated Date: 11/25/2024 14:20 ET Assigned Physician: Greg Barnes Reviewed and Electronically Signed By: Greg Barnes Signed Date: 11/25/2024 14:22 ET Workstation ID: [id number] Transcribed By: Self Edit Transcribed Date: 11/25/2024 14:20 ET Narrative 11/25/2024 2:22 PM EST Frontal and lateral view of the chest COMPARISON: Chest radiograph February 2024 INDICATION: Productive cough Procedure Note Greg Barnes MD - 11/25/2024 Frontal and lateral view of the chest COMPARISON: Chest radiograph February 2024 INDICATION: Productive cough IMPRESSION: No acute infiltrate is visualized. Coarse reticular markings are againnoted in the right and left chest that are suggestive of regions offibrosis and/or bronchiectasis. Mediastinum appears normal. -------- FINAL REPORT -------- Dictated By: Greg Barnes Dictated Date: 11/25/2024 14:20 ET Assigned Physician: Greg Barnes Reviewed and Electronically Signed By: Greg Barnes Signed Date: 11/25/2024 14:22 ET Workstation ID: [id number] Transcribed By: Self Edit Transcribed Date: 11/25/2024 14:20 ET Scooby David MD IMG XR PROCEDURES * (ABNORMAL) Manual differential (11/25/2024 2:06 PM EST) Neutrophils % 55.0 % LAB HEMETOLOGY METHOD 5 2:55 PM [facility] Bands % 10.0 % LAB HEMETOLOGY METHOD 5 2:55 PM [facility] Lymphocytes % 30.0 % LAB HEMETOLOGY METHOD 5 2:55 PM [facility] Monocytes % 4.0 % LAB HEMETOLOGY METHOD 5 2:55 PM [facility] Eosinophils % 0.0 % LAB HEMETOLOGY METHOD 5 2:55 PM [facility] Basophils % 0.0 % LAB HEMETOLOGY METHOD 5 2:55 PM [facility] Metamyelocytes % 1.0(H) % LAB HEMETOLOGY METHOD 5 2:55 PM [facility] Neutrophils Absolute Manual 3.08 1.50 - 7.00 K/mcL LAB HEMETOLOGY METHOD 5 2:55 PM [facility] Bands Absolute Manual 0.56(H) 0.00 - 0.00 K/mcL LAB HEMETOLOGY METHOD 5 2:55 PM [facility] Lymphocytes Absolute 1.68 1.00 - 5.00 K/mcL LAB HEMETOLOGY METHOD 5 2:55 PM [facility] Monocytes Absolute Manual 0.22 0.20 - 1.00 K/mcL LAB HEMETOLOGY METHOD 5 2:55 PM [facility] Eosinophils Absolute Manual 0.00 0.00 - 0.50 K/mcL LAB HEMETOLOGY METHOD 5 2:55 PM [facility] Basophils Absolute Manual 0.00 0.00 - 0.20 K/mcL LAB HEMETOLOGY METHOD 2:55 PM EST [facility] Metamyelocytes Absolute Manual 0.06(H) 0.00 - 0.00 K/mcL LAB HEMETOLOGY METHOD 2:55 PM EST [facility] Rbc Morphology Consistent with indices Consistent with indices, Normal for [place] LAB HEMETOLOGY METHOD 2:55 PM EST [facility] Platelet Morphology - WAM Normal Normal LAB HEMETOLOGY METHOD 2:55 PM EST [facility] Vacuolated Neutrophils Present Present(A) (none) LAB HEMETOLOGY METHOD 2:55 PM [facility] Blood Venous blood specimen / Unknown Venipuncture / Unknown 11/25/2024 2:06 PM EST 11/25/2024 2:12 PM EST Scooby David MD LAB BLOOD ORDERAB LES [facility] [address] [place] [address], * (ABNORMAL) CBC auto differential (11/25/2024 2:06 PM EST) WBC 5.6 4.8 - 10.8 K/mcL LAB HEMETOLOGY METHOD 11/25/2024 2:55 PM EST [facility] RBC 3.20(L) 3.80 - 4.80 M/mcL LAB HEMETOLOGY METHOD 11/25/2024 2:55 PM EST [facility] Hemoglobin 10.7(L) 11.5 - 16.0 g/dL LAB HEMETOLOGY METHOD 11/25/2024 2:55 PM EST [facility] Hematocrit 32.8(L) 35.0 - 47.0 % LAB HEMETOLOGY METHOD 11/25/2024 2:55 PM EST [facility] MCV 102.2(H) 79.0 - 98.0 FL LAB HEMETOLOGY METHOD 11/25/2024 2:55 PM EST [facility] MCH 33.3(H) 27.0 - 32.0 pcg LAB HEMETOLOGY METHOD 11/25/2024 2:55 PM EST [facility] MCHC 32.6 32.0 - 37.0 g/dL LAB HEMETOLOGY METHOD 11/25/2024 2:55 PM EST [facility] RDW 14.2 11.0 - 15.0 % LAB HEMETOLOGY METHOD 11/25/2024 2:55 PM EST [facility] Platelets 191 130 - 400 K/mcL LAB HEMETOLOGY METHOD 11/25/2024 2:55 PM EST [facility] MPV 9.6 7.0 - 11.0 FL LAB HEMETOLOGY METHOD 11/25/2024 2:55 PM EST [facility] NRBC 0.0 <1.0 % LAB HEMETOLOGY METHOD 11/25/2024 2:55 PM EST [facility] NRBC Absolute 0.00 <0.10 K/mcL LAB HEMETOLOGY METHOD 11/25/2024 2:55 PM EST [facility] Blood Venous blood specimen / Unknown Venipuncture / Unknown 11/25/2024 2:06 PM EST 11/25/2024 2:12 PM EST Scooby David MD LAB BLOOD ORDERAB LES [facility] [address] [place] [address], * (ABNORMAL) Basic metabolic panel (11/25/2024 2:06 PM EST) [facility] Sodium 135 133 - 145 mmol/L LAB CHEMISTRY METHOD 11/25/2024 2:35 PM [facility] Potassium 3.7 3.5 - 5.5 mmol/L LAB CHEMISTRY METHOD 11/25/2024 2:35 PM [facility] Chloride 107 96 - 110 mmol/L LAB CHEMISTRY METHOD 11/25/2024 2:35 PM [facility] CO2 24 21 - 32 mmol/L LAB CHEMISTRY METHOD 11/25/2024 2:35 PM [facility] Anion Gap 4 3 - 11 LAB CHEMISTRY METHOD 11/25/2024 2:35 PM [facility] Glucose 153(H) 70 - 100 mg/dL LAB CHEMISTRY METHOD 11/25/2024 2:35 PM [facility] BUN 19 5 - 25 mg/dL LAB CHEMISTRY METHOD 11/25/2024 2:35 PM [facility] Creatinine 0.93 0.50 - 1.10 mg/dL LAB CHEMISTRY METHOD 11/25/2024 2:35 PM [facility] eGFR 63 >=60 mL/min/1. 73m2 LAB CHEMISTRY METHOD 11/25/2024 2:35 PM [facility] Comment:Calculation based on the??Chronic Kidney Disease Epidemiology Collaboration (CKD-EPI) equation refit??without adjustment for race. BUN/Creatinine Ratio 20.4 LAB CHEMISTRY METHOD 11/25/2024 2:35 PM [facility] Calcium 8.7 8.5 - 10.5 mg/dL LAB CHEMISTRY METHOD 11/25/2024 2:35 PM [facility] Blood Venous blood specimen / Unknown Venipuncture / Unknown 11/25/2024 2:06 PM EST 11/25/2024 2:12 PM EST Scooby David MD LAB BLOOD ORDERAB LES [facility] [address] [place] [address], * (ABNORMAL) Respiratory virus panel molecular study (11/25/2024 1:59 PM EST) Adenovirus Detection by PCR Not Detected Not Detected LAB MICROBIOLOGY METHOD 11/25/2024 3:18 PM EST [facility] Influenza A PCR Not Detected Not Detected LAB MICROBIOLOGY METHOD 11/25/2024 3:18 PM EST [facility] Influenza B PCR Not Detected Not Detected LAB MICROBIOLOGY METHOD 11/25/2024 3:18 PM EST [facility] Coronavirus 229E Not Detected Not Detected LAB MICROBIOLOGY METHOD 11/25/2024 3:18 PM EST [facility] Coronavirus HKU1 Not Detected Not Detected LAB MICROBIOLOGY METHOD 11/25/2024 3:18 PM EST [facility] Coronavirus OC43 Not Detected Not Detected LAB MICROBIOLOGY METHOD 11/25/2024 3:18 PM EST [facility] Coronavirus NL63 Not Detected Not Detected LAB MICROBIOLOGY METHOD 11/25/2024 3:18 PM EST [facility] Parainfluenza Virus 1 Not Detected Not Detected LAB MICROBIOLOGY METHOD 11/25/2024 3:18 PM EST [facility] Parainfluenza Virus 2 Not Detected Not Detected LAB MICROBIOLOGY METHOD 11/25/2024 3:18 PM [facility] Parainfluenza Virus 3 Not Detected Not Detected LAB MICROBIOLOGY METHOD 11/25/2024 3:18 PM EST [facility] Parainfluenza Virus 4 Not Detected Not Detected LAB MICROBIOLOGY METHOD 11/25/2024 3:18 PM EST [facility] RSV PCR Detected(A ) Not Detected LAB MICROBIOLOGY METHOD 11/25/2024 3:18 PM [facility] Human Metapneumovirus A and B Not Detected Not Detected LAB MICROBIOLOGY METHOD 11/25/2024 3:18 PM EST [facility] Rhinovirus/Entero virus Not Detected Not Detected LAB MICROBIOLOGY METHOD 11/25/2024 3:18 PM EST [facility] Bordetella pertussis Not Detected Not Detected LAB MICROBIOLOGY METHOD 11/25/2024 3:18 PM EST [facility] Bordetella parapertussis Not Detected Not Detected LAB MICROBIOLOGY METHOD 11/25/2024 3:18 PM EST [facility] Mycoplasma pneumo by PCR Not Detected Not Detected LAB MICROBIOLOGY METHOD 11/25/2024 3:18 PM EST [facility] Chlamydia pneumoniae Not Detected Not Detected LAB MICROBIOLOGY METHOD 11/25/2024 3:18 PM EST [facility] SARS COV-2 Not Detected Not Detected LAB MICROBIOLOGY METHOD 11/25/2024 3:18 PM [facility] Swab Both anterior nares / Unknown Non-blood Collection / Unknown 11/25/2024 1:59 PM EST 11/25/2024 2:12 PM EST Narrative [facility] - 11/25/2024 3:18 PM EST Testing was performed using the [employer] Respiratory Pathogen PCR Assay. All results must be correlated with the clinical findings. Results should not be used as the sole basis for diagnosis. False Negative results may occur from the presence of sequence variants in the region targeted by the assay or the presence of inhibitors. Results may be affected by concurrent antiviral/antimicrobial therapy or levels of organisms that are below the limit of detection. Scooby David MD LAB MICROBIOLOGY - GENERAL ORDERABLES [facility] [address] [place] [address], * ECG-Annotated (11/25/2024) Provider Onbase ECG ORDERABLES documented in this encounter Visit Diagnoses Diagnosis RSV (acute bronchiolitis due to respiratory syncytial virus)- Primary Acute bronchiolitis due to respiratory syncytial virus (RSV) documented in this encounter Additional Health Concerns Infection Onset Date Last Indicated Resolved Time Respiratory Rule-Out 11/25/2024 11/25/2024 025 3:18 PM EST COVID-19 Rule-Out 11/25/2024 11/25/2024 11/25/2024 3:18 PM EST RSV 11/25/2024 11/25/2024 documented as of this encounter Care Teams Help Desk Team Leader Relationship Specialty Start Date End Date Naina Steve MD [address] [place] [id number] PCP - General 11/09/23 documented as of this encounter
--- OUTSIDE RECORDS SUMMARY | 2024-12-11 13:20 | XMS_ITS ---
Author Organization [facility] Address [address] [facility] [facility] [place] [address] Care Team Providers Care Computer Forensics Technician Name Role Phone NEIL LAZAR Primary Care Provider Results Component Value Reference Range Notes CBC WITH AUTO DIFF Reviewed date:09/19/2023 07:44:11 AM Interpretation: Performing Lab: Notes/Report: Original Ordering Provider: DENILSON VAZQUEZ MD [employer], [place] [address] [employer] Equipment Sales Representative - Amira Pierson MD WBC 6.4 4.8-10.8 x10-3/uL RBC 3.5 3.8-4.8 x10-6/uL HEMOGLOBIN 11.2 11.5-16.0 g/dL HEMATOCRIT 34.8 35-47 % MCV 99.1 79-98 fL MCH 31.9 27-32 pg MCHC 32.2 32-37 g/dL RDW 12.8 11-15 % PLT COUNT 231 130-400 x10-3/uL MEAN PLATELET VOLUME 11.2 7-11 fL NRBC % AUTO 0.0 <1 % NEUT % 50.2 LYMPH % 37.7 MONO % 7.8 EOS % 3.8 BASO % 0.3 IMMATURE GRANULOCYTES % 0.2 NRBC # AUTO 0.00 <0.1 x10-3/uL ABSOLUTE NEUT 3.20 1.5-7.0 x10-3/uL LYMPH # 2.40 1-5.0 x10-3/uL MONO # 0.50 0.2-1.0 x10-3/uL EOS # 0.24 0-0.5 x10-3/uL BASO # 0.02 0-0.2 x10-3/uL IMMATURE GRANULOCYTES # 0.01 0-0.03 x10-3/uL CBC WITH AUTO DIFF Reviewed date:09/19/2023 07:44:11 AM Interpretation: Performing Lab: Notes/Report: Original Ordering Provider: NEIL LAZAR MD [employer], [place] [address] Bottling Equipment Sales Representative - Amira Pierson MD WBC 6.1 4.8-10.8 x10-3/uL RBC 3.4 3.8-4.8 x10-6/uL HEMOGLOBIN 11.1 11.5-16.0 g/dL HEMATOCRIT 34.9 35-47 % MCV 102.6 79-98 fL MCH 32.6 27-32 pg MCHC 31.8 32-37 g/dL RDW 12.8 11-15 % PLT COUNT 227 130-400 x10-3/uL MEAN PLATELET VOLUME 11.3 7-11 fL NRBC % AUTO 0.0 <1 % NEUT % 52.7 LYMPH % 34.9 MONO % 7.7 EOS % 3.9 BASO % 0.5 IMMATURE GRANULOCYTES % 0.3 NRBC # AUTO 0.00 <0.1 x10-3/uL ABSOLUTE NEUT 3.23 1.5-7.0 x10-3/uL LYMPH # 2.14 1-5.0 x10-3/uL MONO # 0.47 0.2-1.0 x10-3/uL EOS # 0.24 0-0.5 x10-3/uL BASO # 0.03 0-0.2 x10-3/uL IMMATURE GRANULOCYTES # 0.02 0-0.03 x10-3/uL COMPREHENSIVE METABOLIC PANE L Reviewed date:09/19/2023 07:44:11 AM Interpretation: Performing Lab: Notes/Report: Original Ordering Provider: NEIL LAZAR MD GLUCOSE 87 70-100 mg/dL Reference range applicable to fasting specimens only BUN 18 5-25 mg/dL CREAT 0.96 0.5-1.1 mg/dL GLOMERULAR FILTRATION RATE 61 >60 This eGFR result was calculated using the CKD-EPI 2021 Creatinine Equation SODIUM 141 135-145 mEq/L POTASSIUM 3.7 3.5-5.5 mmol/L CHLORIDE 108 96-110 mmol/L CO2 28 21-32 mmol/L ANION GAP 5 3-11 CALCIUM 9.2 8.5-10.5 mg/dL TOTAL PROTEIN 8.7 6.0-8.0 G/dL ALBUMIN 3.2 3.2-5.0 G/dL BILI,TOTAL 0.3 0.0-1.4 mg/dL SGOT 21 10-42 U/L SGPT 23 10-60 U/L ALK PHOS 121 42-121 U/L COMPREHENSIVE METABOLIC PANE L Reviewed date:09/19/2023 07:44:11 AM Interpretation: Performing Lab: Notes/Report: Original Ordering Provider: DENILSON VAZQUEZ MD [employer], [place] [address] Bottling Equipment Sales Representative - Amira Pierson MD GLUCOSE 158 70-100 mg/dL Reference range applicable to fasting specimens only BUN 19 5-25 mg/dL CREAT 0.98 0.5-1.1 mg/dL GLOMERULAR FILTRATION RATE 59 >60 This eGFR result was calculated using the CKD-EPI 2020 Creatinine Equation SODIUM 140 135-145 mEq/L POTASSIUM 4.0 3.5-5.5 mmol/L CHLORIDE 109 96-110 mmol/L CO2 25 21-32 mmol/L ANION GAP 6 3-11 CALCIUM 9.4 8.5-10.5 mg/dL TOTAL PROTEIN 8.8 6.0-8.0 G/dL ALBUMIN 3.1 3.2-5.0 G/dL BILI,TOTAL 0.4 0.0-1.4 mg/dL SGOT 19 10-42 U/L SGPT 23 10-60 U/L ALK PHOS 117 42-121 U/L LIPID PROFILE Reviewed date:09/19/2023 07:44:11 AM Interpretation: Performing Lab: Notes/Report: CHOLESTEROL 236 0-200 mg/dL TRIGLYCERIDES 180 0-150 mg/dL HDL CHOLESTEROL 65 >40 mg/dL LDL CALCULATED 135 0-100 mg/dL TC-HDLC RATIO 3.6 0-4.4 mg/dL TSH Reviewed date:09/19/2023 07:44:11 AM Interpretation: Performing Lab: Notes/Report: [facility], a member of [address] [address] Bottling Equipment Sales Representative - Amira Pierson MD TSH 1.57 0.40-4.00 uIU/ml URINALYSIS Reviewed date:09/19/2023 07:44:11 AM Interpretation: Performing Lab: Notes/Report: Original Ordering Provider: NEIL LAZAR MD [employer], a member of [address] [address] Bottling Equipment Sales Representative - Amira Pierson MD GLUCOSE, (UA) NEGATIVE NEGATIVE mg/dL BILIRUBIN, URINE NEGATIVE NEGATIVE KETONE, URINE NEGATIVE NEGATIVE mg/dL SPECIFIC GRAVITY, URINE 1.007 1.003-1.030 BLOOD, URINE TRACE NEGATIVE PH, URINE 6.5 5.0-8.0 PROTEIN, URINE NEGATIVE <= TRACE mg/dl UROBILINOGEN, URINE 0.2 0.2-1.0 E.U./dL NITRITE, URINE NEGATIVE NEGATIVE LEUKOCYTE ESTERASE, URINE MODERATE NEGATIVE RBC, URINE 3 0-4 /HPF WBC, URINE 14 0-4 /HPF EPITH CELLS, URINE 114 0-60 /LPF BACTERIA, URINE MODERATE NEGATIVE REASON FOR VISIT Lab Order & Refill Request Medications Medication SIG (Take, Route, Frequency, Duration) Notes Start Date End Date Status Apixaban 5 MG 1 tablet Orally Twic e a day for 90 days Active Pantoprazole Sodium 40 MG 1 tablet Orall y Once a day for 90 days Active Levothyroxine Sodium 50 MCG TAKE 1 TABLE T ORALLY ONCE A DAY 90 DAY(S) Orally Once a day for 90 days Active Lisinopril 20 MG TAKE 1 TABLET BY BETH TH EVERY DAY Orally Once a day for 90 days Active Metoprolol Tartrate 25 MG 1 tablet with food Orally Twice a day for 90 days Active Vitamin D-3 1000 UNIT 2 capsule Orally O nce a day for 90 days Active Aspirin 81 81 MG 1 tablet Orally Once a day for 90 days Active Encounters Encounter Location Date Provider Diagnosis [address] [place] [address] 09/16/2023 NEIL LAZAR HTN (hypertension) I 10 ; Anemia, unspecified D64.9 ; Hypothyroidism E03.9 ; Pulmonary fibrosis J84.10 and Uterine procidentia N81.3 Assessments Encounter Date Diagnosis (ICD Code) Assessment Notes Treatment Notes Treatment Clinical Notes Section Notes 09/16/2023 HTN (hypertension) (ICD-10 - I10) 09/16/2023 Anemia, unspecified (ICD-10 - D64.9) 09/16/2023 Hypothyroidism (ICD-10 - E03.9) 09/16/2023 Pulmonary fibrosis (ICD-10 - J84.10) 09/16/2023 Uterine procidentia (ICD-10 - N81.3) Plan Of Treatment Medication Medication Name Sig Start Date Stop Date Notes Apixaban 5 MG 1 tablet Orally Twic e a day for 90 days Pantoprazole Sodium 40 MG 1 tablet Orall y Once a day for 90 days Levothyroxine Sodium 50 MCG TAKE 1 TABLE T ORALLY ONCE A DAY 90 DAY(S) Orally Once a day for 90 days Lisinopril 20 MG TAKE 1 TABLET BY BETH TH EVERY DAY Orally Once a day for 90 days Metoprolol Tartrate 25 MG 1 tablet with food Orally Twice a day for 90 days Vitamin D-3 1000 UNIT 2 capsule Orally O nce a day for 90 days Aspirin 81 81 MG 1 tablet Orally Once a day for 90 days Pending Test Test Name Order Date TSH 09/16/2023 Progress Notes * PRETTY Verna RDOB: 6 (78 yo F)Acc No.[id number]:09/16/2023 Patient:?Verna Finch :1945???Age:78 Y???Sex:Female Address:[address] [place] [address], [place] [address] * Refills? Refill Aspirin 81 Tablet Delayed Release, 81 MG, Orally, 90 Tablet, 1 tablet, Once a day, 90 days, Refills=3 Refill Vitamin D-3 Capsule, 1000 UNIT, Orally, 180 Capsule, 2 capsule, Once a day, 90 days, Refills=3 Refill Metoprolol Tartrate Tablet, 25 MG, Orally, 180 Tablet, 1 tablet with food, Twice a day, 90 days, Refills=3 Refill Lisinopril Tablet, 20 MG, Orally, 90 Tablet, TAKE 1 TABLET BY MOUTH EVERY DAY, Once a day, 90 days, Refills=3 Refill Levothyroxine Sodium Tablet, 50 MCG, Orally, 90 Tablet, TAKE 1 TABLET ORALLY ONCE A DAY 90 DAY(S), Once a day, 90 days, Refills=3 Refill Pantoprazole Sodium Tablet Delayed Release, 40 MG, Orally, 90, 1 tablet, Once a day, 90 days, Refills=3 Refill Apixaban Tablet, 5 MG, Orally, 180, 1 tablet, Twice a day, 90 days, Refills=3 Subjective: * Chief Complaints: * ???Lab Order & Refill Reques t * Medical History:? * Surgical History:? * Hospitalization/Major Diagno stic Procedure:? * Medications:? Objective: Assessment: * Assessment: 1.?HTN (hypertension) - I10? 2.?Anemia, unspecified - D64.9?3.?Hypothyroidism - E03.9?4.?Pulmonary fibrosis - J84.10?5.?Uterine procidentia - N81.3? Plan: * Treatment: 2.?Anemia, unspecified?LAB: TSH ?LAB: CBC WITH AUTO DIFF ?LAB: COMPREHENSIVE METABOLIC PANEL ?LAB: LIPID PROFILE ?LAB: URINALYSIS 3.?Hypothyroidism?LAB: TSH ?LAB: CBC WITH AUTO DIFF ?LAB: COMPREHENSIVE METABOLIC PANEL ?LAB: LIPID PROFILE ?LAB: URINALYSIS 4.?Pulmonary fibrosis?LAB: TSH ?LAB: CBC WITH AUTO DIFF ?LAB: COMPREHENSIVE METABOLIC PANEL ?LAB: LIPID PROFILE ?LAB: URINALYSIS 5.?Uterine procidentia?LAB: TSH ?LAB: CBC WITH AUTO DIFF ?LAB: COMPREHENSIVE METABOLIC PANEL ?LAB: LIPID PROFILE ?LAB: URINALYSIS 6.?Others? Refill Aspirin 81 Tablet Delayed Release, 81 MG, 1 tablet, Orally, Once a day, 90 days, 90 Tablet, Refills 3;?Refill Vitamin D-3 Capsule, 1000 UNIT, 2 capsule, Orally, Once a day, 90 days, 180 Capsule, Refills 3;?Refill Metoprolol Tartrate Tablet, 25 MG, 1 tablet with food, Orally, Twice a day, 90 days, 180 Tablet, Refills 3;?Refill Lisinopril Tablet, 20 MG, TAKE 1 TABLET BY MOUTH EVERY DAY, Orally, Once a day, 90 days, 90 Tablet, Refills 3;?Refill Levothyroxine Sodium Tablet, 50 MCG, TAKE 1 TABLET ORALLY ONCE A DAY 90 DAY(S), Orally, Once a day, 90 days, 90 Tablet, Refills 3;?Refill Pantoprazole Sodium Tablet Delayed Release, 40 MG, 1 tablet, Orally, Once a day, 90 days, 90, Refills 3;?Refill Apixaban Tablet, 5 MG, 1 tablet, Orally, Twice a day, 90 days, 180, Refills 3.?? * Labs:? * ?Lab: CBC WITH AUTO DIFF ?Lab: COMPREHENSIVE META BOLIC PANEL ?Lab: TSH * Procedure Codes:? * true * Date:? Generated for Kelsi merritt/Ele/Ayannaitting on:?12/11/2024 01:20 PM EST
--- OUTSIDE RECORDS SUMMARY | 2024-12-11 13:21 | XMS_ITS ---
Author Organization [facility] Address [address] [place] [address] Care Team Providers Care Mud Grinder Name Role Phone PETER HARDING Primary Care Provider REASON FOR VISIT MOLST/HCP Encounters Encounter Location Date Provider Diagnosis [facility] [address] [facility] [address] [place] [address] 08/16/2023 PETER HARDING Plan Of Treatment No Information Progress Notes * Verna FINCH RDOB: [birth year] (79 yo F)Acc No.[id number]:08/16/2023 Progress Notes Patient:?Verna FINCH Provider:?Peter Harding MD :1945???Age:78 Y???Sex:Female D ate:08/16/2023 Address:[address] [place], [place] [id number] Subjective: * Chief Complaints: * ???1. MOLST/HCP. * Medical History:? Objective: * Vitals:? Assessment: Plan: * Treatment: * Billing Information: * Visit Code:? * Procedure Codes:? * Electronic signature of RICARDO HARDING MD on 12/11/2024 at 01:20 PM EST Sign off status: Pending * Provider:?Peter Harding MD Date:?2022 Generated for Printi ng/Faxing/eTransmitting on:?12/11/2024 01:20 PM EST
--- OUTSIDE RECORDS SUMMARY | 2024-12-11 13:21 | XMS_ITS ---
Author Organization [facility] Address [address] [place] [address] Care Team Providers Care Development Consultant Name Role Phone CADYCARLOSPETER Primary Care Provider [phone] Allergies Allergen (clinical drug ingredient) Drug/Non Drug Allergy documented on EMR Reaction Allergy Type Onset Date Status omeprazole Omeprazole CPDR (uncoded) Unknown Allergy Active REASON FOR VISIT Follow-Up: Healthcare Proxy & MOLST Form Medications Medication SIG (Take, Route, Frequency, Duration) Notes Start Date End Date Status Metoprolol Tartrate 25 MG 1 tablet with food Orally Twice a day for 90 days Active Lisinopril 20 MG TAKE 1 TABLET BY MOUTH EVERY DAY Orally Once a day for 90 days Active Levothyroxine Sodium 50 MCG TAKE 1 TABLET ORALLY ONCE A DAY 90 DAY(S) Orally Once a day for 90 days Active Pantoprazole Sodium 40 MG 1 tablet Orall y Once a day for 90 days Active Apixaban 5 MG 1 tablet Orally Twice a day for 90 days Active Vitamin D-3 1000 UNIT 2 capsule Orally Once a day for 90 days Active traZODone HCl 50 MG 1 tablet at bedtime as needed Orally Once a day for 30 day(s) PRN 11/13/2020 Not-Taking amLODIPine Besylate 2.5 MG 1 tablet Oral ly Once a day for 90 Not-Taking Estrace 0.1 MG/GM cream Vaginal Use as needed for 90 days _insert 1 gram per vagina hs 12/04/2013 Not-Taking Aspirin 81 81 MG 1 tablet Orally Once a day for 90 days Active Revlimid 25 MG 1 capsule Orally Once a day Not-Taking hydroCHLOROthiazide 12.5 MG 1 capsule Orally Once a day for 90 day(s) 04/01/2022 Not-Taking Aspirin 81 MG 1 tablet Orally Once a day for 90 Not-Taking Melatonin 3 MG 1 tablet at bedtime as needed Orally Once a day QHS PRN Not-Taking Nortriptyline HCl 25 MG 1 capsule Orally Once a day for 90 PRN 11/13/2020 Not-Taking traZODone HCl 50 MG 1 tablet at bedtime as needed Orally Once a day prn Not-Taking dexAMETHasone 4 MG 5 tablet Orally every 7 days 03/29/2023 Not-Taking Social History Tobacco Use: Social History Observation Description Date Details (start date - stop date) Never Smoker NA - NA Tobacco Use/Smoking Question Answer Notes Are you a nonsmoker Additional Findings: Tobacco Non-User Current no n-smoker Alcohol Screen (Audit-C) Question Answer Notes Did you have a drink containing alcohol in the p ast year? No Points 0 Interpretation Negative Tobacco use other than smoking: Question Answer Notes Are you an other tobacco user? No Section Notes: 06/29/21 updated; 54 years to Robson Finch 78 yr(my pt) 2 children #Dhiraj Finch 50 yr Lives in [place] [employer] with 2 dtrs Agata 12 yr and Shannon 10 yrs Debi is macanese and works in a Bank. They visit on holidays. # Jhoana Finch 49 yr Lives with BF [place] Both work with physicians in [place] Live in [place] Visited in [place] No children Patient worked in [employer] 50-60 hours a week. She went at 4 a.m. up to 1 PM. 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 She and her and Syed other 2 main owners and Mr.Ruis Barnes is a third minor partners. Now Syed Fairbanks son bought the Bakery from them in Nov 2018 Brother in law murdered by [employer] employee. She went to [place] for a month in May 2017 with her for vacation enjoyed it immensely. Saw urologist for her bladder issues She saw Dr Perlita knox on [address] Mother is 99 yand has alzehiemers. Spends most of day with her but is able to be at her own home with her dog Pueta and a n aide 4 hours every morning. Vital Signs Temperature 98.5 degrees Fahrenheit 09/27/20 23 Blood pressure systolic 138 mm Hg 09/27/20 23 Blood pressure diastolic 70 mm Hg 023 Heart Rate 58 /min 09/27/2023 Height 65 in 09/27/2023 Weight 136 lbs 09/27/2023 BMI 22.63 kg/m2 09/27/2023 Oximetry 98 % 09/27/2023 Encounters Encounter Location Date Provider Diagnosis [facility] [address] [place] [address] 09/27/2023 PETER HARDING HTN (hypertension) I 10 ; Hypothyroidism E03.9 ; Anemia, unspecified D64.9 ; Pulmonary fibrosis J84.10 ; Generalized anxiety disorder F41.1 ; Migraine with aura, not intractable, without status migrainosus G43.109 and Multiple myeloma C90.00 Assessments Encounter Date Diagnosis (ICD Code) Assessment Notes Treatment Notes Treatment Clinical Notes Section Notes 09/27/2023 HTN (hypertension) (ICD-10 - I10) 09/27/2023 Hypothyroidism (ICD-10 - E03.9) 09/27/2023 Anemia, unspecified (ICD-10 - D64.9) 09/27/2023 Pulmonary fibrosis (ICD-10 - J84.10) Seeing Right Of [facility] Maintenance Supervisor in [facility] 10/12/23 Saw her twice No meds 09/27/2023 Generalized anxiety disorder (ICD-10 - F41.1) Will strat on nortryptylline 25 mg at 09/27/2023 Migraine with aura, not intractable, without status migrainosus (ICD-10 - G43.109) Last attack over a year ago 09/27/2023 Multiple myeloma (ICD-10 - C90.00) Saw Dr Knowles 05/02/20 Dx of smoldering myeloma, stable with no progression in disease FU in 6-8 months with him 09/29/[address] Knowles regularly, last seen 09/10/21 and bone marrow biopsy was done 12/02/[address] Knowles will see her on 12/15/21 and plans to start treating her for her MM. 01/27/[address] knowles last note, mild changes, will hold off on tx and repeat labs in 3 months, await next steps with ILD 04/01/[address] knowles last week. f/u july, no tx yet needed Plan Of Treatment Next Appt Details Follow Up: 4 Months, Reason: Progress Notes * Verna FINCH RDOB: [birth year] (78 yo F)Acc No.[id number]:09/27/2023 Progress Notes Patient:?Verna Finch Provider:?Peter Harding MD :1945???Age:78 Y???Sex:Female D ate:09/27/2023 Address:[address] [place], [place] [id number] Subjective: * Chief Complaints: * ???Follow-Up: Healthcare Pro xy & MOLST Form * HPI: ???Constitutional:? 09/27/23 Came with Magdi. Has healed with her foot Saw Dr Knowles on 09/20/23 FU in 4 months Labs fine Went to [facility] in July for 2 months and stayed in [facility] . No further abdominal pain /discomfort. Dtr Melinda will come from [facility] for either [facility] or [place] ?Brought meds for reviewed Stopped the Eliquis Taking metoprolo, Levothyroxine Pantaprazoleand Lisinopril. No new complaints ?06/30/23 Came in with her Magdi. Seen after a year. I spoke to her daughter Bailee on speakerphone and apprised me of her condition She fell at Dr Argueta office on March 31 and fell and fractured her left metatarsal . A week later found a fracture Saw orthopedic and given a boot to use for 8 weeks . Started on treatment with Revlimid and steroids on March [address] Knowles, Was hospitalized at [facility] in April for a wek with Ischemic colitis Sent home on digital monitoring of her weight , BP and oxygen Has weekly VNA visit Was found to have left leg DVT whil in hospital Put on Eliquis BID . Feeling at base line Planning to travel to [facility] on Jul 15 to September 08 . Will need 3 months supply Ill check the Left leg for dissolution of clot as DVT could be secondary to foot fracture and immobilty .Told to use compression stockings on the plane . Will restrt treament with Revlimid and steroids when she comes back . No problem walking Walks a mile daily with Magdi. ?04/08/23 daughter Jhoana on speaker phone, with patient. went to [facility] 05/06/23 d/c 05/13/23 ?Visiting nurse came once and PT came yesterday. ?Had fx foot before hosp and when there was put on Eiquis for blood clot in left leg. ?dx with ischemic colitis. for 3 weeks before hosp had been feeling poorly. Had abd pain, vomiting. Had a little blood in stools day before hosp but not since. Taking pantoprazole. Appetite is not back yet. Is eating very little. Has lost about 10 pounds. Started treatment for multiple myeloma in March and appetite low since then. Now onc holding Revlamid and prednisone until end of month. Has eggs most mornings, Meat or fish most days. Has tried Boost and Ensure. Has little bit more energy than before hosp for colitis. Able to sleep well and able to perform self care ADL's without fatigue Had some ventric tach in hosp. Has not had racing heart or palpitations since DC. Taking metoprolol tartrate bid as rx'd in hospital ?Has been to [facility] for colonoscopies in past. * ROS:?General/Constitutional:?Overall health?Fair.?Admits?Change in appetite.?Denies?Chills.?Admits?Fatigue.?Denies?Fever.?Denies?Headache.?Denies?S leep disturbance.?Admits?Weight loss.?Respiratory:?Denies?Chest pain.?Denies?Cough.?Denies?Hemoptysis.?Denies?Pain with inspiration.?Denies?Shortness of breath.?Denies?Shortness of breath at rest.?Denies?Shortness of breath with exertion.?Denies?Sputum production.?Denies?Wheezing.?Cardiovascular:?Denies?Chest pain.?Denies?Chest pain at rest.?Denies?Chest pain with exertion.?Denies?Claudication.?Denies?Difficulty laying flat.?Denies?Dizziness.?Denies?Dyspnea on exertion.?Denies?Fluid accumulation in the legs.?Denies?Irregular heartbeat.?Denies?Orthopnea.?Denies?Palpitations.?Denies?Shortness of breath.?Swelling in hands/feet?denies.?Denies?Weakness.?Gastrointestinal:?Denies?Abdominal pain.?Denies?Blood in stool.?Denies?Change in bowel habits.?Denies?Constipation.?Admits?Decreased appetite.?Denies?Diarrhea.?Denies?Difficulty swallowing.?Denies?Heartburn.?Denies?Hematemesis.?Denies?Nausea.?Denies?Vomiting .?Admits?W eight loss.? * Medical History:? * Surgical History:?Tonsillect javier Cholecystectom Dr Garcia 1993 * Hospitalization/Major Diagno stic Procedure:? * Family History:?FamilyHx: Di abetes Mellitus;Heart Disease;Hypertension;.?Father: diagnosed with Unspecified essential hypertension.?Paternal aunt: diagnosed with Unspecified heart disease.? Born in [facility] [place] Came to [facility] at age 22 yr Parents migrated Got her Green Card and went back and Magdi in [facility] in 1970. Father Dhiraj Ivy at age 84 in 14 yrs ago. Mother Alicia Ivy is 100 yrs and lived with patient for past 3 yrs in Oct 2020 . Has one sister Nory Finch 67 yr. lives on [facility] Works in the [employer] was murdered last year. Has one daughter Bonnie Finch 35 yr(single, works in [employer] in a Bank) and a son Robson Finch 42 yr lives with a GF in [place] near mother, and she had a son n March 2019 Worls in the [employer]. * Social History:?Tobacco Use:?Tobacco Use/Smoking?Are you a?nonsmoker ?Additional Findings: Tobacco Non-User?Current non-smoker ?Tobacco use other than smoking?Are you an other tobacco user??No ???Social_Migrated:?SocialHx: Never a smokerMarital History - Currently MarriedWorking Part-timeNever Drank Alcohol. ???Drugs/Alcohol:?Alcohol Screen (Audit-C)?Did you have a drink containing alcohol in the past year??No ?Points?0 ?Interpretation?Negative ?Do you drink alcohol?: No. ???06/29/21 updated; 53 years to Robson Finch 78 yr(my pt) 2 children #Dhiraj Finch 50 yr Lives in [place] [employer] with 2 dtrs Agata 12 yr and Shannon 10 yrs Debi is macanese and works in a [employer]. They visit on holidays. # Jhoana Finch 48 yr Lives with BF [place] Both work with physicians in [place] Live in [place] Visited in [place] No children Patient worked in [employer] 50-60 hours a week. She went at 4 a.m. up to 1 PM. 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 She and her and Syed other 2 main owners and Mr.Ruis Barnes is a third minor partners. Now Syed Fairbanks son bought the Bakery from them in Nov 2018 Brother in law murdered by [employer] employee. She went to [place] for a month in May 2017 with her for vacation enjoyed it immensely. Saw urologist for her bladder issues She saw Dr Perlita knox on [address] Mother is 99 yand has alzehiemers. Spends most of day with her but is able to be at her own home with her dog Pueta and a n aide 4 hours every morning. * Medications:?TakingAspirin 8 1 81 MG Tablet Delayed Release 1 tablet Orally Once a dayVitamin D-3 1000 UNIT Capsule 2 capsule Orally Once a dayMetoprolol Tartrate 25 MG Tablet 1 tablet with food Orally Twice a dayLisinopril 20 MG Tablet TAKE 1 TABLET BY MOUTH EVERY DAY Orally Once a dayLevothyroxine Sodium 50 MCG Tablet TAKE 1 TABLET ORALLY ONCE A DAY 90 DAY(S) Orally Once a dayPantoprazole Sodium 40 MG Tablet Delayed Release 1 tablet Orally Once a dayApixaban 5 MG Tablet 1 tablet Orally Twice a dayTaking Aspirin 81 81 MG Tablet Delayed Release 1 tablet Orally Once a dayTaking Vitamin D-3 1000 UNIT Capsule 2 capsule Orally Once a dayTaking Metoprolol Tartrate 25 MG Tablet 1 tablet with food Orally Twice a dayTaking Lisinopril 20 MG Tablet TAKE 1 TABLET BY MOUTH EVERY DAY Orally Once a dayTaking Levothyroxine Sodium 50 MCG Tablet TAKE 1 TABLET ORALLY ONCE A DAY 90 DAY(S) Orally Once a dayTaking Pantoprazole Sodium 40 MG Tablet Delayed Release 1 tablet Orally Once a dayTaking Apixaban 5 MG Tablet 1 tablet Orally Twice a dayNot-TakingdexAMETHasone 4 MG Tablet 5 tablet Orally every 7 daystraZODone HCl 50 MG Tablet 1 tablet at bedtime as needed Orally Once a day, Notes: prnRevlimid 25 MG Capsule 1 capsule Orally Once a dayhydroCHLOROthiazide 12.5 MG Capsule 1 capsule Orally Once a dayAspirin 81 MG Tablet Delayed Release 1 tablet Orally Once a dayMelatonin 3 MG Tablet 1 tablet at bedtime as needed Orally Once a day, Notes: QHS PRNNortriptyline HCl 25 MG Capsule 1 capsule Orally Once a day, Notes: PRNtraZODone HCl 50 MG Tablet 1 tablet at bedtime as needed Orally Once a day, Notes: PRNamLODIPine Besylate 2.5 MG Tablet 1 tablet Orally Once a dayEstrace 0.1 MG/GM CREA cream Vaginal Use as needed, Notes: _insert 1 gram per vagina hsNot-Taking dexAMETHasone 4 MG Tablet 5 tablet Orally every 7 daysNot-Taking traZODone HCl 50 MG Tablet 1 tablet at bedtime as needed Orally Once a day, Notes: prnNot-Taking Revlimid 25 MG Capsule 1 capsule Orally Once a dayNot-Taking hydroCHLOROthiazide 12.5 MG Capsule 1 capsule Orally Once a dayNot-Taking Aspirin 81 MG Tablet Delayed Release 1 tablet Orally Once a dayNot-Taking Melatonin 3 MG Tablet 1 tablet at bedtime as needed Orally Once a day, Notes: QHS PRNNot-Taking Nortriptyline HCl 25 MG Capsule 1 capsule Orally Once a day, Notes: PRNNot- Taking traZODone HCl 50 MG Tablet 1 tablet at bedtime as needed Orally Once a day, Notes: PRNNot-Taking amLODIPine Besylate 2.5 MG Tablet 1 tablet Orally Once a dayNot- Taking Estrace 0.1 MG/GM CREA cream Vaginal Use as needed, Notes: _insert 1 gram per vagina hs * Allergies:?Omeprazole CPDR Objective: * Vitals:?Temp:98.5 F, HR:58 / min, BP:138/70 mm Hg, Wt:136 lbs, BMI:22.63 Index, Ht: 65 in, Oxygen sat %:98 %, Wt-k.69 kg. * ???Past Orders: Lab:URINALYSIS * Order Date 09/16/2023 04/14/2023 12/07/2021 BACTERIA, URINE MODERATE?A (Ref Range: NEGATIVE) NR NEGATIVE (Ref Range: NEGATIVE) WBC, URINE 14?H (Ref Range: 0-4 /HPF) NR 6?H (Ref Range: 0-4 /HPF) BILIRUBIN, URINE NEGATIVE (Ref Range: NEGATIVE) NEGATIVE (Ref Range: NEGATIVE) NEGATIVE (Ref Range: NEGATIVE) BLOOD, URINE TRACE (Ref Range: NEGATIVE) NEGATIVE (Ref Range: NEGATIVE) TRACE (Ref Range: NEGATIVE) EPITH CELLS, URINE 114?H (Ref Range: 0-60 /LPF) NR 50 (Ref Range: 0-60 /LPF) GLUCOSE, (UA) NEGATIVE (Ref Range: NEGATIVE mg/dL) NEGATIVE (Ref Range: NEGATIVE mg/dL) NEGATIVE (Ref Range: NEGATIVE mg/dL) KETONE, URINE NEGATIVE (Ref Range: NEGATIVE mg/dL) NEGATIVE (Ref Range: NEGATIVE mg/dL) NEGATIVE (Ref Range: NEGATIVE mg/dL) LEUKOCYTE ESTERASE, URINE MODERATE?A (Ref Range: NEGATIVE) NEGATIVE (Ref Range: NEGATIVE) SMALL?A (Ref Range: NEGATIVE) NITRITE, URINE NEGATIVE (Ref Range: NEGATIVE) NEGATIVE (Ref Range: NEGATIVE) NEGATIVE (Ref Range: NEGATIVE) PH, URINE 6.5 (Ref Range: 5.0-8.0) 5.0 (Ref Range: 5.0-8.0) 5.5 (Ref Range: 5.0-8.0) PROTEIN, URINE NEGATIVE (Ref Range: <= TRACE mg/dl) NEGATIVE (Ref Range: <= TRACE mg/dl) NEGATIVE (Ref Range: <= TRACE mg/dl) RBC, URINE 3 (Ref Range: 0-4 /HPF) NR 5?H (Ref Range: 0-4 /HPF) SPECIFIC GRAVITY, URINE 1.007 (Ref Range: 1.003-1.030) 1.013 (Ref Range: 1.003-1.030) 1.011 (Ref Range: 1.003-1.030) UROBILINOGEN, URINE 0.2 (Ref Range: 0.2-1.0 E.U./dL) 0.2 (Ref Range: 0.2-1.0 E.U./dL) 0.2 (Ref Range: 0.2-1.0 E.U./dL) * Lab:TSH * Order Date 09/16/2023 08/12/2022 12/02/2021 TSH 1.57 (Ref Range: 0.40-4.00 uIU/ml) 6.63?H (Ref Range: 0.40-4.00 uIU/ml) 4.78?H (Ref Range: 0.40-4.00 uIU/ml) * Lab:LIPID PROFILE * Order Date 09/16/2023 04/13/2023 01/21/2021 CHOLESTEROL 236?H (Ref Range: 0-200 mg/dL) 203?H (Ref Range: 0-200 mg/dL) 235?H (Ref Range: 0-200 mg/dL) HDL CHOLESTEROL 65 (Ref Range: >40 mg/dL) 91 (Ref Range: >40 mg/dL) 52 (Ref Range: >40 mg/dL) LDL CALCULATED 135?H (Ref Range: 0-100 mg/dL) 99 (Ref Range: 0-100 mg/dL) 123?H (Ref Range: 0-100 mg/dL) TC-HDLC RATIO 3.6 (Ref Range: 0-4.4 mg/dL) 2.2 (Ref Range: 0-4.4 mg/dL) 4.5?H (Ref Range: 0-4.4 mg/dL) TRIGLYCERIDES 180?H (Ref Range: 0-150 mg/dL) 69 (Ref Range: 0-150 mg/dL) 303?H (Ref Range: 0-150 mg/dL) * Lab:CBC WITH AUTO DIFF * Order Date 09/16/2023 09/16/2023 06/15/2023 BASO # 0.03 (Ref Range: 0-0.2 x10-3/uL) 0.02 (Ref Range: 0-0.2 x10-3/uL) 0.04 (Ref Range: 0-0.2 x10-3/uL) BASO % 0.5 (Ref Range: %) 0.3 (Ref Range: %) 0.7 (Ref Range: %) EOS # 0.24 (Ref Range: 0-0.5 x10-3/uL) 0.24 (Ref Range: 0-0.5 x10-3/uL) 0.11 (Ref Range: 0-0.5 x10-3/uL) EOS % 3.9 (Ref Range: %) 3.8 (Ref Range: %) 1.9 (Ref Range: %) HEMATOCRIT 34.9?L (Ref Range: 35-47 %) 34.8?L (Ref Range: 35-47 %) 32.1?L (Ref Range: 35-47 %) HEMOGLOBIN 11.1?L (Ref Range: 11.5-16.0 g/dL) 11.2?L (Ref Range: 11.5-16.0 g/dL) 10.1?L (Ref Range: 11.5-16.0 g/dL) IMMATURE GRANULOCYTES % 0.3 (Ref Range: %) 0.2 (Ref Range: %) 0.5 (Ref Range: %) IMMATURE GRANULOCYTES # 0.02 (Ref Range: 0-0.03 x10-3/uL) 0.01 (Ref Range: 0-0.03 x10-3/uL) 0.03 (Ref Range: 0-0.03 x10-3/uL) LYMPH # 2.14 (Ref Range: 1-5.0 x10-3/uL) 2.40 (Ref Range: 1-5.0 x10-3/uL) 2.40 (Ref Range: 1-5.0 x10-3/uL) LYMPH % 34.9 (Ref Range: %) 37.7 (Ref Range: %) 41.7 (Ref Range: %) MCH 32.6?H (Ref Range: 27-32 pg) 31.9 (Ref Range: 27-32 pg) 33.8?H (Ref Range: 27-32 pg) MCHC 31.8?L (Ref Range: 32-37 g/dL) 32.2 (Ref Range: 32-37 g/dL) 31.5?L (Ref Range: 32-37 g/dL) MCV 102.6?H (Ref Range: 79-98 fL) 99.1?H (Ref Range: 79-98 fL) 107.4?H (Ref Range: 79-98 fL) MONO # 0.47 (Ref Range: 0.2-1.0 x10-3/uL) 0.50 (Ref Range: 0.2-1.0 x10-3/uL) 0.46 (Ref Range: 0.2-1.0 x10-3/uL) MONO % 7.7 (Ref Range: %) 7.8 (Ref Range: %) 8.0 (Ref Range: %) MEAN PLATELET VOLUME 11.3?H (Ref Range: 7-11 fL) 11.2?H (Ref Range: 7-11 fL) 10.7 (Ref Range: 7-11 fL) ABSOLUTE NEUT 3.23 (Ref Range: 1.5-7.0 x10-3/uL) 3.20 (Ref Range: 1.5-7.0 x10-3/uL) 2.72 (Ref Range: 1.5-7.0 x10-3/uL) NEUT % 52.7 (Ref Range: %) 50.2 (Ref Range: %) 47.2 (Ref Range: %) NRBC # AUTO DIFF 0.00 (Ref Range: <0.1 x10-3/uL) 0.00 (Ref Range: <0.1 x10-3/uL) 0.00 (Ref Range: <0.1 x10-3/uL) NRBC % AUTO DIFF 0.0 (Ref Range: <1 %) 0.0 (Ref Range: <1 %) 0.0 (Ref Range: <1 %) PLT COUNT 227 (Ref Range: 130-400 x10-3/uL) 231 (Ref Range: 130-400 x10-3/uL) 290 (Ref Range: 130-400 x10-3/uL) RBC 3.4?L (Ref Range: 3.8-4.8 x10-6/uL) 3.5?L (Ref Range: 3.8-4.8 x10-6/uL) 3.0?L (Ref Range: 3.8-4.8 x10-6/uL) RDW 12.8 (Ref Range: 11-15 %) 12.8 (Ref Range: 11-15 %) 14.6 (Ref Range: 11-15 %) WBC 6.1 (Ref Range: 4.8-10.8 x10-3/uL) 6.4 (Ref Range: 4.8-10.8 x10-3/uL) 5.8 (Ref Range: 4.8-10.8 x10-3/uL) * Examination: ???General Examination: ?GENERAL APPEARANCE:?in no acute distress, well developed, pale fatigued appearing.?NECK/THYROID:?neck supple, full range of motion, no cervical lymphadenopathy.?HEART:?no murmurs, irregular rate and rhythm, S1, S2 noted, EKG shows PVCs per pt normal.?LUNGS:?slight crackles in bilateral lower lobes, no wheezing, no rales, no rhonchi. rest of lung davidson clear.?ABDOMEN:?ida no hepatosplenomegaly, , bowel sounds present, soft, nontender, nondistended.?EXTREMITIES:?no clubbing, cyanosis, or edema.?PSYCH:?alert, oriented, good eye contact ,speech clear,thought process logical, goal directed.? Assessment: * Assessment: 1.?Hypothyroidism - E03.9 (P rimary)?2.?HTN (hypertension) - I10?3.?Anemia, unspecified - D64.9?4.?Pulmonary fibrosis - J84.10, Seeing Right Of Way Maintenance Supervisor in [place] 10/12/23 Saw her twice No meds?5.?Generalized anxiety disorder - F41.1, 20512 Will strat on nortryptylline 25 mg at hs?6.?Migraine with aura, not intractable, without status migrainosus - G43.109, Last attack over a year ago?7.?Multiple myeloma - C90.00, Smoldering, Saw Dr Knowles 05/02/20 Dx of smoldering myeloma, stable with no progression in disease FU in 6-8 months with him09/29/[address] Knowles regularly, last seen 09/10/21 and bone marrow biopsy was done 12/02/[address] Knowles will see her on 12/15/21 and plans to start treating her for her MM.01/27/[address] knowles last note, mild changes, will hold off on tx and repeat labs in 3 months, await next steps with ILD04/01/[address] knowles last week. f/u july, no tx yet needed? Plan: * Treatment: * Procedure Codes:? * Follow Up:?4 Months * Billing Information: * Visit Code:? 25767 Office Visit, Est Pt., Level 4. * Procedure Codes:? * Sign off status: Completed true * Provider:?Peter Harding MD Date:?2022 Generated for Kelsi merritt/Ele/eTransmitting on:?12/11/2024 01:21 PM EST History and Physical Notes * Examination Category Sub-Category Detail Notes Category Not es General Examination GENERAL APPEARANCE: in no ac [place] distress, well developed, pale fatigued appearing NECK/THYROID: neck supple, full ra nge of motion, no cervical lymphadenopathy HEART: no murmurs, irregula r rate and rhythm, S1, S2 noted, EKG shows PVCs per pt normal LUNGS: slight crackles in b ilateral lower lobes, no wheezing, no rales, no rhonchi. rest of lung davidson clear ABDOMEN: ida no hepatosplen omegaly, , bowel sounds present, soft, nontender, nondistended EXTREMITIES: no clubbing, cyanosi s, or edema PSYCH: alert, oriented , go od eye contact , speech clear , thought process logical, goal directed
--- OUTSIDE RECORDS SUMMARY | 2024-12-11 13:21 | XMS_ITS | Clinical Summary ---
Author Organization [facility] Address [address] [place] [phone] Phone Care Team Providers Care Vamp Marker Name Role Phone Naina Steve MD Primary Care Provider [phone] Allergies No known active allergies Medications Medication Sig Dispensed Refills Start Date End Date Status aspirin 81 mg EC tablet Take 1 tablet (81 mg total) by mouth 1 (one) time each day. Active levothyroxine (SYNTHROID, LEVOTHROID) 50 mcg tablet Take 1 tablet (50 mcg total) by mouth 1 (one) time each day before breakfast. 90 tablet 1 10/08/2024 Active dexAMETHasone (DECADRON) 4 mg tabletIndicatio ns:Smoldering multiple myeloma (SMM) Take 3 tabs(12 mg) by mouth once a week 36 each 11 10/15/2024 Active losartan (COZAAR) 50 mg tablet TAKE 1 AND 1/2 TABLETS BY MOUTH DAILY 135 tablet 1 10/23/2024 Active Pomalyst 2 mg capsule TAKE 1 CAPSULE (2MG) BY MOUTH DAILY FOR 21 DAYS FOLLOWED BY 7 DAYS OFF 21 capsule 11/28/2024 Active metoprolol succinate (TOPROL-XL) 25 mg 24 hr tablet Take 1 tablet (25 mg total) by mouth 1 (one) time each day. for 30 days 11/16/2024 Active pantoprazole (PROTONIX) 40 mg EC tablet Take 1 tablet (40 mg total) by mouth 1 (one) time each day. for 90 days 08/09/2024 Active albuterol HFA (Proventil HFA) 90 mcg/actuation inhaler Inhale 2 puffs by mouth every 4 (four) hours if needed for wheezing or shortness of breath. 6.7 g 11/27/2024 6 Active amLODIPine (NORVASC) 2.5 mg tablet Take 1 tablet (2.5 mg total) by mouth 1 (one) time each day at the same time. 5 Discontinued(The rapy completed) metoprolol tartrate (LOPRESSOR) 25 mg tablet Take 0.5 tablets (12.5 mg total) by mouth 3 (three) times a day. 09/28/2024 5 Discontinued(Alt ernate therapy) Pomalyst 2 mg capsule TAKE 1 CAPSULE (2MG) BY MOUTH DAILY FOR 21 DAYS FOLLOWED BY 7 DAYS OFF 21 capsule 10/26/2024 5 Discontinued guaiFENesin (ROBITUSSIN) 100 mg/5 mL liquid Take 10 mL (200 mg total) by mouth 3 (three) times a day if needed for cough for up to 10 days. 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 Encounters Date Type Department Care Team Description 11/27/2024 11:30 AM EST Office Visit Adult Medicine [address] [phone] Naina Steve MD RSV (respiratory syncytial virus infection) (Primary Dx) 11/26/2024 9:45 AM EST Office Visit [facility] Hematology Oncology [address] [place] [phone] Jose Francisco Izquierdo MD Smoldering multiple myeloma (SMM) (Primary Dx) 11/25/2024 1:27 PM EST - 11/25/2024 4:35 PM EST Emergency [facility] Emergency [address] [place] [phone] RSV (acute bronchiolitis due to respiratory syncytial virus) (Primary Dx) Discharge Disposition: Home or Self Care 11/02/2024 Telephone Adult Medicine [address] [phone] Naina Stvee MD Referral (EXTERNAL) 10/17/[address] [phone] Naina Steve MD provider call back 10/17/[address] [phone] Naina Steve MD Referral 10/10/2024 12:30 PM EST Office Visit [address] [phone] Naina Steve MD Hospital discharge follow-up (Primary Dx); Primary hypertension; Symptomatic sinus bradycardia; Nonsustained ventricular tachycardia (CMS/HCC) 10/10/[address] [phone] Gillian Chavez RN 10/03/[address] [phone] Naina Steve MD Hospital Follow-up 09/27/2024 10:00 AM EST Office Visit [address] [phone] Iván Robles PA Bradycardia (Primary Dx); Frequent PVCs; Primary hypertension 09/19/2024 9:45 AM EST Office Visit [facility] Hematology Oncology [address] [place] [phone] Jose Francisco Izquierdo MD Smoldering multiple myeloma (SMM) (Primary Dx) 09/19/[address] [phone] Naina Steve MD from Last 3 Months Surgical History Surgery Date Site/Laterality Comments CHOLECYSTECTOMY PROCEDURE:CHOLECYSTECTOMY TONSILLECTOMY PROCEDURE:TONSILLECTOMY COLONOSCOPY 02/27/2007 PROCEDURE: HISTORICAL COLONOSCOPY TONSILLECTOMY PROCEDURE: HISTORICAL TONSILLECTOMY CHOLECYSTECTOMY 1993 PROCEDURE: HISTORICAL CHOLECYSTECTOMY; COMMENT: Dr. Garcia Medical History Medical History Date Comments Monoclonal gammopathy DX:Monoc[place] nal gammopathy Anemia DX:Anemia Vitamin D deficiency DX:Vitamin D deficiency Chronic bronchitis (CMS/HCC) DX: Chronic bronchitis (HCC) Esophageal ulcer DX:Esophageal u lcer Osteoporosis DX:Osteoporosis GERD (gastroesophageal reflu x disease) DX:GERD (gastroesophageal re flux disease) Hypertension DX:Hypertension Diabetes mellitus (CMS/HCC) DX:D iabetes mellitus ([facility]) Heart disease DX:Heart disease Hypertension 03/16/2021 DX:Hypertension Multiple myeloma (CMS/HCC) 03/16/2021 DX:Mu ltiple myeloma ([facility]); COMMENT: Sees Dr. Izquierdo Stress incontinence 03/16/2021 DX:Stress in continence Vitamin D deficiency 03/16/2021 DX:Vitamin D deficiency History of atopic dermatitis 03/16/2021 DX: History of atopic dermatitis Bilateral cataracts 03/16/2021 DX:Bilateral cataracts Osteoporosis 03/16/2021 DX:Osteoporosis Anemia 03/16/2021 DX:Anemia Generalized anxiety disorder 03/16/2021 DX: Generalized anxiety disorder Migraine with aura, not intr actable, without status migrainosus 03/16/2021 DX:Migraine with aura, not intractable, without status migrainosus Varicose veins of both legs with edema 03/16/2021 DX:Varicose veins of both le gs with edema GERD without esophagitis 03/16/2021 DX:GERD without esophagitis UTI (urinary tract infection) 03/16/2021 DX :UTI (urinary tract infection) Uterine procidentia 03/17/2021 DX:Uterine p rocidentia PVC (premature ventricular contraction) 03/17/2021 DX:PVC (premature ventricula r contraction); COMMENT: Sees Dr. Taurus Rich had holter and echo completed History of 2019 novel us virus disease (COVID-19) 10/2020 DX:History of 2019 novel cor onavirus disease (COVID-19); COMMENT: mild case/ no hospitalization Pulmonary fibrosis (CMS/HCC) Family History Medical History Relation Name Comments Hypertension Father Alzheimer's disease Mother Relation Name Status Comments Father Mother Social History Tobacco Use Types Packs/Day Years [...] file Not on file Not on file Obstetrics History Last Filed Vital Signs Vital Sign Reading [...] Mass Index 23.17 11/27/2024 11:25 AM EST Plan of Treatment Upcoming Encounters Date Type Department Care Team (Late st Contact Info) Description 02/25/2025 9:15 AM EDT Office Visit [facility] Hematology Oncology [address] [place] [phone] Jose Francisco Izquierdo MD [address] [place] [address] 03/06/2025 1:15 PM EDT Office Visit Adult Medicine [address] [phone] Naina Steve MD [address] [place] [phone] Health Maintenance Due Date Last Done Comments Pneumococcal Vaccine: 65+ Years (2 of 2 - PCV) 10/29/2011 10/29/2010 Zoster Vaccines (1 of 2) 07/26/2016 05/31/2016 RSV Immunization Patients 60+ Years Old (1 - 1-dose 75+ series) 2021 Depression Screening 10/21/2022 Falls Risk Assessment 10/21/2022 Medicare Annual Wellness Visit 10/21/2022 Social Influencers of Health Screening 10/21/2022 Hypertension/CHF/CAD Annual BMP Blood Test 11/25/2025 11/25/2024, 11/19/2024, 10/18/2024, Additional history exists DTaP,Tdap,and Td Vaccines (2 - Td or Tdap) 08/20/2029 08/20/2019 Cholesterol Screening (Lipid Panel) 08/28/2029 08/28/2024 Osteoporosis Screening (Bone Density Screening) 01/07/2031 01/07/2021 Hepatitis C Screening Completed 05/04/2022, 022 Influenza Vaccine Completed 08/08/2024, , 09/07/2022, Additional history exists COVID-19 Vaccine Completed 08/09/2024, 04/2022, 09/23/2021, Additional history exists HIB Vaccines Aged Out No longer eligi ble based on patient's age to complete this topic HPV Vaccines Aged Out No longer eligi ble based on patient's age to complete this topic Hepatitis A Vaccines Aged Out No long er eligible based on patient's age to complete this topic Hepatitis B Vaccines Aged Out No long er eligible based on patient's age to complete this topic IPV Vaccines Aged Out No longer eligi ble based on patient's age to complete this topic MMR Vaccines Aged Out No longer eligi ble based on patient's age to complete this topic Meningococcal ACWY Vaccine Aged Out N o longer eligible based on patient's age to complete this topic RSV Immunization Patients Under 20 months Aged Out No longer eligible based on patient's age to complete this topic Varicella Vaccines Aged Out No longer eligible based on patient's age to complete this topic Procedures Procedure Name Priority Date/Time Associated Diagnosis Comments ECG 12-LEAD STAT 11/25/2024 3:26 PM EST XR CHEST 2 VIEWS STAT 11/25/2024 2:17 PM EST MANUAL DIFFERENTIAL - SYSMEX WAM STAT 11/25/2024 2:06 PM EST CBC WITH AUTO DIFFERENTIAL STAT 11/25/2024 2:06 PM EST BASIC METABOLIC PANEL STAT 11/25/2024 2:06 PM EST CBC AND DIFFERENTIAL STAT 11/25/2024 2:06 PM EST RESPIRATORY VIRUS PANEL MOLECULAR STUDY STAT 11/25/2024 1:59 PM EST ECG ANNOTATED 11/25/2024 CBC WITH AUTO DIFFERENTIAL Routine 11/19/2024 10:14 AM EST Myeloma associated amyloidosis (CMS/HCC) COMPREHENSIVE METABOLIC PANEL Routine 11/19/2024 10:14 AM EST Myeloma associated amyloidosis (CMS/HCC) CBC AND DIFFERENTIAL Routine 11/19/2024 10:14 AM EST Myeloma associated amyloidosis (CMS/HCC) MANUAL DIFFERENTIAL - SYSMEX WAM Routine 10/18/2024 10:20 AM EST Myeloma associated amyloidosis (CMS/HCC) CBC WITH AUTO DIFFERENTIAL Routine 10/18/2024 10:20 AM EST Myeloma associated amyloidosis (CMS/HCC) CBC AND DIFFERENTIAL Routine 10/18/2024 10:20 AM EST Myeloma associated amyloidosis (CMS/HCC) COMPREHENSIVE METABOLIC PANEL Routine 10/18/2024 10:20 AM EST Myeloma associated amyloidosis (CMS/HCC) ECG 12-LEAD Routine 09/27/2024 1:26 PM EST Primary hypertension ..MISCELLANEOUS REFERENCE LAB TEST 09/19/2024 ..MISCELLANEOUS REFERENCE LAB TEST 09/19/2024 ..MISCELLANEOUS REFERENCE LAB TEST 09/19/2024 HM HEPATITIS C SCREENING Routine 05/04/2022 [facility] DEXA AXIAL SKELETON Routine 01/07/2021 5:06 PM EST Encounter for screening for osteoporosis from Last 3 Months or Most Recently Relevant to Health Maintenance Results * ECG 12 lead (11/25/2024 3:26 PM EST) Only the most recent of2 resultswithin the time period is included. Ventricular Rate ECG 67 BPM GEMUSE Atrial Rate 67 BPM GEMUSE P-R Interval 144 ms GEMUSE QRS Duration 84 ms GEMUSE Q-T Interval 434 ms GEMUSE QTc 458 ms GEMUSE P Wave [place] 45 degrees GEMUSE R [place] 12 degrees GEMUSE T [place] 86 degrees GEMUSE ECG Interpretation Normal sinus rhythm Left ventricular hypertrophy with repolarization abnormality Abnormal ECG When compared with ECG of 18-FEB-2024 14:57, Premature ventricular complexes are no longer Present Non-specific change in ST segment in Anterior leads Confirmed by Anderson CHEUNG YUFENG ([id number]) on 11/26/2024 6:29:12 AM GEMUSE 11/25/2024 [...] Signed Date: 11/25/2024 14:22 ET Workstation ID: [id number] Transcribed By: Self Edit Transcribed Date: 11/25/2024 [...] Signed Date: 11/25/2024 14:22 ET Workstation ID: [id number] Transcribed By: Self Edit Transcribed Date: 11/25/2024 14:20 ET Scooby David MD IMG XR PROCEDURES * (ABNORMAL) Manual differential (11/25/2024 2:06 PM EST) Only the most recent of2 resultswithin the time period is included. Neutrophils % 55.0 % LAB HEMETOLOGY METHOD 5 2:55 PM [facility] Bands % 10.0 % LAB HEMETOLOGY METHOD 5 2:55 PM [facility] Lymphocytes % 30.0 % LAB HEMETOLOGY METHOD 5 2:55 PM [facility] Monocytes % 4.0 % LAB HEMETOLOGY METHOD 5 2:55 PM [facility] Eosinophils % 0.0 % LAB HEMETOLOGY METHOD 5 2:55 PM [facility] Basophils % 0.0 % LAB HEMETOLOGY METHOD 5 2:55 PM [facility] Metamyelocytes % 1.0(H) % LAB HEMETOLOGY METHOD 5 2:55 PM [facility] Neutrophils Absolute Manual 3.08 1.50 - 7.00 K/mcL LAB HEMETOLOGY METHOD 5 2:55 PM EST [facility] Bands Absolute Manual 0.56(H) 0.00 - 0.00 K/mcL LAB HEMETOLOGY METHOD 5 2:55 PM EST [facility] Lymphocytes Absolute 1.68 1.00 - 5.00 K/mcL LAB HEMETOLOGY METHOD 5 2:55 PM EST [facility] Monocytes Absolute Manual 0.22 0.20 - 1.00 K/mcL LAB HEMETOLOGY METHOD 5 2:55 PM EST [facility] Eosinophils Absolute Manual 0.00 0.00 - 0.50 K/mcL LAB HEMETOLOGY METHOD 5 2:55 PM EST [facility] Basophils Absolute Manual 0.00 0.00 - 0.20 K/mcL LAB HEMETOLOGY METHOD 5 2:55 PM EST [facility] Metamyelocytes Absolute Manual 0.06(H) 0.00 - 0.00 K/mcL LAB HEMETOLOGY METHOD 5 2:55 PM EST [facility] Rbc Morphology Consistent with indices Consistent with indices, Normal for [place]pe LAB HEMETOLOGY METHOD 5 2:55 PM EST [facility] Platelet Morphology - WAM Normal Normal LAB HEMETOLOGY METHOD 5 2:55 PM EST [facility] Vacuolated Neutrophils Present Present(A) (none) LAB HEMETOLOGY METHOD 5 2:55 PM [facility] Blood Venous blood specimen / Unknown Venipuncture / Unknown 11/25/2024 2:06 PM EST 11/25/2024 2:12 PM EST Scooby David MD LAB BLOOD ORDERAB LES [facility] [address] [place] [address], * (ABNORMAL) CBC auto differential (11/25/2024 2:06 PM EST) Only the most recent of3 resultswithin the time period is included. [facility] Signature WBC 5.6 4.8 - 10.8 K/mcL LAB HEMETOLOGY METHOD 11/25/2024 2:55 PM [facility] RBC 3.20(L) 3.80 - 4.80 M/mcL LAB HEMETOLOGY METHOD 11/25/2024 2:55 PM [facility] Hemoglobin 10.7(L) 11.5 - 16.0 g/dL LAB HEMETOLOGY METHOD 11/25/2024 2:55 PM [facility] Hematocrit 32.8(L) 35.0 - 47.0 % LAB HEMETOLOGY METHOD 11/25/2024 2:55 PM [facility] MCV 102.2(H) 79.0 - 98.0 FL LAB HEMETOLOGY METHOD 11/25/2024 2:55 PM [facility] MCH 33.3(H) 27.0 - 32.0 pcg LAB HEMETOLOGY METHOD 11/25/2024 2:55 PM [facility] MCHC 32.6 32.0 - 37.0 g/dL LAB HEMETOLOGY METHOD 11/25/2024 2:55 PM [facility] RDW 14.2 11.0 - 15.0 % LAB HEMETOLOGY METHOD 11/25/2024 2:55 PM [facility] Platelets 191 130 - 400 K/mcL LAB HEMETOLOGY METHOD 11/25/2024 2:55 PM [facility] MPV 9.6 7.0 - 11.0 FL LAB HEMETOLOGY METHOD 11/25/2024 2:55 PM [facility] NRBC 0.0 <1.0 % LAB HEMETOLOGY METHOD 11/25/2024 2:55 PM [facility] NRBC Absolute 0.00 <0.10 K/mcL LAB HEMETOLOGY METHOD 11/25/2024 2:55 PM [facility] Blood Venous blood specimen / Unknown Venipuncture / Unknown 11/25/2024 2:06 PM EST 11/25/2024 2:12 PM EST Scooby David MD LAB BLOOD ORDERAB LES [facility] [address] [place] [address], * (ABNORMAL) Basic metabolic panel (11/25/2024 2:06 PM EST) Sodium 135 133 - 145 mmol/L LAB CHEMISTRY METHOD 11/25/2024 2:35 PM [facility] Potassium 3.7 3.5 - 5.5 mmol/L LAB CHEMISTRY METHOD 11/25/2024 2:35 PM [facility] Chloride 107 96 - 110 mmol/L LAB CHEMISTRY METHOD 11/25/2024 2:35 PM [facility] CO2 24 21 - 32 mmol/L LAB CHEMISTRY METHOD 11/25/2024 2:35 PM [facility] Anion Gap 4 3 - 11 LAB CHEMISTRY METHOD 11/25/2024 2:35 PM [facility] Glucose 153(H) 70 - 100 mg/dL LAB CHEMISTRY METHOD 11/25/2024 2:35 PM [facility] BUN 19 5 - 25 mg/dL LAB CHEMISTRY METHOD 11/25/2024 2:35 PM [facility] Creatinine 0.93 0.50 - 1.10 mg/dL LAB CHEMISTRY METHOD 11/25/2024 2:35 PM [facility] eGFR 63 >=60 mL/min/1. 73m2 LAB CHEMISTRY METHOD 11/25/2024 2:35 PM EST [facility] Comment:Calculation based on the??Chronic Kidney Disease Epidemiology Collaboration (CKD-EPI) equation refit??without adjustment for race. BUN/Creatinine Ratio 20.4 LAB CHEMISTRY METHOD 11/25/2024 2:35 PM EST [facility] Calcium 8.7 8.5 - 10.5 mg/dL LAB CHEMISTRY METHOD 11/25/2024 2:35 PM EST [facility] Blood Venous blood specimen / Unknown Venipuncture / Unknown 11/25/2024 2:06 PM EST 11/25/2024 2:12 PM EST Scooby David MD LAB BLOOD ORDERAB LES [facility] [address] [place] [address], * (ABNORMAL) Respiratory virus panel molecular study (11/25/2024 1:59 PM EST) Adenovirus Detection by PCR Not Detected Not Detected LAB MICROBIOLOGY METHOD 11/25/2024 3:18 PM EST [facility] Influenza A PCR Not Detected Not Detected LAB MICROBIOLOGY METHOD 11/25/2024 3:18 PM [facility] Influenza B PCR Not Detected Not Detected LAB MICROBIOLOGY METHOD 11/25/2024 3:18 PM EST [facility] Coronavirus 229E Not Detected Not Detected LAB MICROBIOLOGY METHOD 11/25/2024 3:18 PM EST [facility] Coronavirus HKU1 Not Detected Not Detected LAB MICROBIOLOGY METHOD 11/25/2024 3:18 PM EST [facility] Coronavirus OC43 Not Detected Not Detected LAB MICROBIOLOGY METHOD 11/25/2024 3:18 PM EST [facility] Coronavirus NL63 Not Detected Not Detected LAB MICROBIOLOGY METHOD 11/25/2024 3:18 PM EST [facility] Parainfluenza Virus 1 Not Detected Not Detected LAB MICROBIOLOGY METHOD 11/25/2024 3:18 PM EST [facility] Parainfluenza Virus 2 Not Detected Not Detected LAB MICROBIOLOGY METHOD 11/25/2024 3:18 PM [facility] Parainfluenza Virus 3 Not Detected Not Detected LAB MICROBIOLOGY METHOD 11/25/2024 3:18 PM EST [facility] Parainfluenza Virus 4 Not Detected Not Detected LAB MICROBIOLOGY METHOD 11/25/2024 3:18 PM EST [facility] RSV PCR Detected(A ) Not Detected LAB MICROBIOLOGY METHOD 11/25/2024 3:18 PM [facility] Human Metapneumovirus A and B Not Detected Not Detected LAB MICROBIOLOGY METHOD 11/25/2024 3:18 PM [facility] Rhinovirus/Entero virus Not Detected Not Detected LAB MICROBIOLOGY METHOD 11/25/2024 3:18 PM [facility] Bordetella pertussis Not Detected Not Detected LAB MICROBIOLOGY METHOD 11/25/2024 3:18 PM [facility] Bordetella parapertussis Not Detected Not Detected LAB MICROBIOLOGY METHOD 11/25/2024 3:18 PM [facility] Mycoplasma pneumo by PCR Not Detected Not Detected LAB MICROBIOLOGY METHOD 11/25/2024 3:18 PM [facility] Chlamydia pneumoniae Not Detected Not Detected LAB MICROBIOLOGY METHOD 11/25/2024 3:18 PM [facility] SARS COV-2 Not Detected Not Detected LAB MICROBIOLOGY METHOD 11/25/2024 3:18 PM [facility] Swab Both anterior nares / Unknown Non-blood Collection / Unknown 11/25/2024 1:59 PM EST 11/25/2024 2:12 PM EST [facility] - 11/25/2024 3:18 PM EST Testing was performed using the Táximoe Respiratory Pathogen PCR Assay. All results must [...] David MD LAB MICROBIOLOGY - GENERAL ORDERABLES [facility] [address] [place] [address], * ECG-Annotated (11/25/2024) Provider Onbase MD ECG ORDERABLES * (ABNORMAL) Comprehensive metabolic panel (11/19/2024 10:14 AM EST) Only the most recent of2 resultswithin the time period is included. Sodium 136 133 - 145 mmol/L LAB CHEMISTRY METHOD 11/19/2024 11:53 AM [facility] Potassium 3.7 3.5 - 5.5 mmol/L LAB CHEMISTRY METHOD 11/19/2024 11:53 AM [facility] Chloride 106 96 - 110 mmol/L LAB CHEMISTRY METHOD 11/19/2024 11:53 AM [facility] CO2 23 21 - 32 mmol/L LAB CHEMISTRY METHOD 11/19/2024 11:53 AM [facility] Anion Gap 7 3 - 11 LAB CHEMISTRY METHOD 11/19/2024 11:53 AM [facility] Glucose 156(H) 70 - 100 mg/dL LAB CHEMISTRY METHOD 11/19/2024 11:53 AM [facility] BUN 25 5 - 25 mg/dL LAB CHEMISTRY METHOD 11/19/2024 11:53 AM [facility] Creatinine 1.04 0.50 - 1.10 mg/dL LAB CHEMISTRY METHOD 11/19/2024 11:53 AM [facility] eGFR 55(L) >=60 mL/min/1. 73m2 LAB CHEMISTRY METHOD 11/19/2024 11:53 AM [facility] Comment:Calculation based on the??Chronic Kidney Disease Epidemiology Collaboration (CKD-EPI) equation refit??without adjustment for race. BUN/Creatinine Ratio 24.0 LAB CHEMISTRY METHOD 11/19/2024 11:53 AM [facility] Calcium 9.4 8.5 - 10.5 mg/dL LAB CHEMISTRY METHOD 11/19/2024 11:53 AM [facility] AST (SGOT) 10 10 - 42 unit/L LAB CHEMISTRY METHOD 11/19/2024 11:53 AM [facility] ALT (SGPT) 20 10 - 60 unit/L LAB CHEMISTRY METHOD 11/19/2024 11:53 AM [facility] Alkaline Phosphatase 128(H) 42 - 121 unit/L LAB CHEMISTRY METHOD 11/19/2024 11:53 AM [facility] Total Protein 8.0 6.0 - 8.0 g/dL LAB CHEMISTRY METHOD 11/19/2024 11:53 AM [facility] Albumin 3.1(L) 3.2 - 5.0 g/dL LAB CHEMISTRY METHOD 11/19/2024 11:53 AM [facility] Total Bilirubin 0.4 0.0 - 1.4 mg/dL LAB CHEMISTRY METHOD 11/19/2024 11:53 AM [facility] Blood Venous blood specimen / Unknown Venipuncture / Unknown 11/19/2024 10:14 AM EST 11/19/2024 11:13 AM EST Jose Francisco Izquierdo MD LAB BLOOD ORDERABLES [facility] [address] [place] [address], * Miscellaneous reference lab test (09/19/2024) Only the most recent of3 resultswithin the time period is included. Provider Onbase LAB BLOOD ORDERABLES * Hepatitis C Screening (05/04/2022) Hepatitis C Screening Abstracted Historical Provider MD MIKA GOLDSTEIN E * MIKE DEXA AXIAL SKELETON (01/07/2021 5:06 PM EST) Anatomical Region Laterality Modality Mammography 01/07/2021 9:11 AM EST Narrative 01/07/2021 5:06 PM EST [facility] Diagnostic Imaging Department [address] [place] [address] Patient: ??JACQUELINE FINCH R ?/Age/Sex: 1945 - 75 - F Unit#: ??[id number] ? Location/Status: ??SPDIMAM/REG CLI ? Mnemonic/Ordering Site: ??MAMDEXAAX/SPMAM Ordering Physician: ??PETER LAZAR MD [facility] Dexa Axial Skeleton - 01/07/21941 History: Low estrogen state due to menopause. Comparison: 04/12/14 Findings: Bone densitometry is performed utilizing dual energy x-ray absorptiometry (DXA) in the Puzl unit. The lumbar spine and proximal femora are evaluated in the AP projection. The FRAX questionaire was completed. The results indicate osteoporosis, with a lumbar spine T-score of -3.8. There have been small, statistically significant decreases in bone mineral density in the bilateral total femurs since the previous study. ??The detailed DEXA report will be mailed to the referring physician's office. DualFemur FRAX: 10-year Probability of Fracture: Major Osteoporotic 21.7 percent ??Hip 8.6 percent. IMPRESSION: Osteoporosis. [id number] Dictating Physician: ??RADHA SAINI MD Electronically Signed by: ??RADHA SAINI MD Dic Date/Time: ??01/07/211704 Sign date/Time: ??01/07/211705 Procedure Note Radha Saini MD - 11/02/2022 [facility] Diagnostic Imaging Department [address] [place] [address] Patient: PRETTYJACQUELINE /Age/Sex: 1945 - 75 - F Unit#: [id number] [facility] Mnemonic/Ordering Site: [facility] Ordering Physician: PETER LAZAR MD [facility] Dexa Axial Skeleton - 01/07/21941 History: Low estrogen state due to menopause. Comparison: 04/12/14 Findings: Bone densitometry is performed utilizing dual energy x-ray absorptiometry(DXA) in the Puzl unit. The lumbar spine and proximal femora areevaluated in the AP projection. The FRAX questionaire was completed. The results indicate osteoporosis, with a lumbar spine T-score of -3.8.There have been small, statistically significant decreases in bone mineraldensity in the bilateral total femurs since the previous study. The detailed DEXAreport will be mailed to the referring physician's office. DualFemur FRAX: 10-year Probability of Fracture: Major Osteoporotic 21.7 percent Hip 8.6 percent. IMPRESSION: Osteoporosis. [id number] Dictating Physician: RADHA SAINI MD Electronically Signed by: RADHA SAINI MD Dic Date/Time: 01/07/211704 Sign date/Time: 01/07/211705 Peter Lazar MD IMG BI PROCEDURES from Last 3 Months or Most Recently Relevant to Health Maintenance Additional Health Concerns Infection Onset Date Last Indicated RSV 11/25/2024 11/25/2024 Care Teams Vamp Marker Relationship Specialty Start Date End Date Naina Steve MD [address] [place] [address] PCP - General 11/09/23
[2024-12-11 14:03] LABS: Anion Gap 11 (12-20); Blood Urea Nitrogen 16 mg/dL (9-16); Calcium 9.3 mg/dL (8.4-10.2); Carbon Dioxide 27 mmol/L (22-29); Chloride 105 mmol/L (96-108); Estimated Glomerular Filt Rate > 60; Glucose Random 84 mg/dL (60-115); Potassium 4.2 mmol/L (3.3-5.1); Sodium 139 mmol/L (135-145)
[2024-12-11 14:07] LABS: TSH reflex Free T4 1.45 uIU/mL (0.32-4.0)
[2024-12-11 14:23] LABS: Folate 12.6 ng/mL (> or = 4.0); Vitamin B12 1015 pg/mL (200-900)
== END 2024-12-11 12:17 | disposition home or self-care (01) ==
LOC: HO.LAB 12:16
PROVIDERS: PCP Internal Medicine; Visit Provider Psychiatry & Neurology Neurology
DX: G30.9 Alzheimer's disease, unspecified (principal)
CPT/HCPCS: 36415; 80048; 82607; 82746; 84443

== ENCOUNTER 2025-01-16 16:01 | Outpatient (REF) | payer MEDICARE, SELFPAY ==
--- NOTE | ~2025-01-16 | CT_ITS ---
CLINICAL HISTORY: N CT head without contrast Comparison: None Findings: Bilateral periventricular hypodensities are present extending into the centrum semiovale. 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 There is no evidence of hemorrhage, mass, mass effect, or hydrocephalus. Mild mucosal thickening is seen in a right posterior ethmoid air cell. Remaining paranasal sinuses and mastoid air cells are clear. The orbital contents are unremarkable. There is no acute fracture. IMPRESSION: 1. No acute intracranial abnormality. 2. Advanced chronic microvascular ischemic disease. This document has been electronically signed by: Jason Fontenot on 01/17/2025 09:06:25
--- OUTSIDE RECORDS SUMMARY | 2025-01-16 19:08 | XMS_ITS | Clinical Summary ---
Author Organization [facility] Address [address] [place] [address] Care Team Providers Care Semiconductor Technician Name Role Phone Naina Steve MD Primary Care Provider [phone] Allergies No known active allergies Medications Medication [...] age to complete this topic Care Teams Semiconductor Technician Relationship Specialty Start Date End Date Nania Steve MD [address] [place] [address] PCP - General Internal Medicine 12/23/23
--- OUTSIDE RECORDS SUMMARY | 2025-01-16 19:08 | XMS_ITS ---
Author Organization [facility] Address [address] [place] [address] Care Team Providers Care Lobby Attendant Name Role Phone NEIL LAZAR Primary Care Provider Results Component Value Reference Range Notes CBC WITH AUTO DIFF Reviewed date:09/19/2023 07:44:11 AM Interpretation: Performing Lab: Notes/Report: Original Ordering Provider: DENILSON VAZQUEZ MD [employer] [address] Gluing Machine Adjuster - Amira Pierson MD WBC 6.4 4.8-10.8 [...] Notes/Report: Original Ordering Provider: NEIL LAZAR MD [employer] [address] Gluing Machine Adjuster - Amira Pierson MD WBC 6.1 4.8-10.8 [...] Notes/Report: Original Ordering Provider: DENILSON VAZQUEZ MD [employer] [address] Gluing Machine Adjuster - Amira Pierson MD GLUCOSE 158 70-100 [...] Lab: Notes/Report: [facility], a member of [address] [address] Gluing Machine Adjuster - Amira Pierson MD TSH 1.57 0.40-4.00 uIU/ml URINALYSIS Reviewed date:09/19/2023 07:44:11 AM Interpretation: Performing Lab: Notes/Report: Original Ordering Provider: NEIL LAZAR MD [employer], a member of [address] [address] Gluing Machine Adjuster - Amira Pierson MD GLUCOSE, (UA) NEGATIVE [...] Active Encounters Encounter Location Date Provider Diagnosis [address] [place] [address] 09/16/2023 NEIL LAZAR HTN (hypertension) I 10 [...] PRETTY Verna RDOB: 6 (78 yo F)Acc No.[id number]:09/16/2023 Patient:?Verna Finch :1945???Age:78 Y???Sex:Female Address:[address] [place] [address], [place] [address] * Refills? Refill Aspirin 81 Tablet Delayed [...] true * Date:? Generated for Kelsi merritt/Ele/Ayannaitting on:?01/16/2025 07:08 PM EST
--- OUTSIDE RECORDS SUMMARY | 2025-01-16 19:09 | XMS_ITS ---
Author Organization [facility] Address [address] [facility] [address] [place] [address] Care Team Providers Care Flight Physician Name Role Phone PETER HARDING Primary Care Provider REASON FOR VISIT MOLST/HCP Encounters Encounter Location Date Provider Diagnosis [facility] [address] [facility] [address] [place] [address] 08/16/2023 PETER HARDING Plan Of Treatment No Information Progress Notes * Verna FINCH RDOB: [birth year] (79 yo F)Acc No.[id number]:08/16/2023 Progress Notes Patient:?Verna FINCH Provider:?Peter Harding MD :1945???Age:78 Y???Sex:Female D ate:08/16/2023 Address:[address] [place], [place] [id number] Subjective: * Chief Complaints: * ???1. MOLST/HCP. * Medical History:? Objective: * Vitals:? Assessment: Plan: * Treatment: * Billing Information: * Visit Code:? * Procedure Codes:? * Electronic signature of RICARDO HARDING MD on 01/16/2025 at 07:08 PM EST Sign off status: Pending * Provider:?Peter Harding MD Date:?2022 Generated for Printi ng/Faxing/eTransmitting on:?01/16/2025 07:08 PM EST
--- OUTSIDE RECORDS SUMMARY | 2025-01-16 19:09 | XMS_ITS ---
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 They visit on holidays. 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 She went at [...] Nov 2018 Brother in law murdered by [employer] employee. She went to [place] for a month in May 2017 with her for vacation enjoyed it immensely. Saw urologist for her bladder issues She saw Dr Perlita knox on [place] [address] Mother is 99 yand has alzehiemers. [...] 09/27/2023 Encounters Encounter Location Date Provider Diagnosis [facility] [address] [address] [place] [address] 09/27/2023 PETER HARDING HTN (hypertension) I 10 [...] 09/27/2023 Pulmonary fibrosis (ICD-10 - J84.10) Seeing Pre Press Manager in [facility] 10/12/23 Saw her twice No meds 09/27/2023 [...] Verna FINCH RDOB: 6 (78 yo F)Acc No.[id number]:09/27/2023 Progress Notes Patient:?Verna Finch Provider:?Peter Harding MD :1945???Age:78 Y???Sex:Female D ate:09/27/2023 Address:[address] [place], [place] [id number] Subjective: * Chief Complaints: * ???Follow-Up: Healthcare Pro xy & MOLST Form * HPI: ???Constitutional:? 09/27/23 Came with Magdi. Has healed with her foot Saw Dr Knowles on 09/20/23 FU in 4 months Labs fine Went to [facility] in July for 2 months and stayed in [facility] . No further abdominal pain /discomfort. Dtr Melinda will come from [facility] for either [facility] or [place] ?Brought meds for reviewed Stopped the Eliquis [...] [address] Knowles, Was hospitalized at [facility] in April for a wek with Ischemic colitis Sent home on digital monitoring of her weight , BP and oxygen Has weekly VNA visit Was found to have left leg DVT whil in hospital Put on Eliquis BID . Feeling at base line Planning to travel to [facility] on Jul 15 to September 08 [...] on speaker phone, with patient. went to [facility] 05/06/23 d/c 05/13/23 ?Visiting nurse came [...] History:? * Surgical History:?Tonsillect javier Cholecystectom Dr Garica 1993 * Hospitalization/Major Diagno stic Procedure:? * Family History:?FamilyHx: Di abetes Mellitus;Heart Disease;Hypertension;.?Father: diagnosed with Unspecified essential hypertension.?Paternal aunt: diagnosed with Unspecified heart disease.? Born in [facility] [place] Came to [facility] at age 22 yr Parents migrated Got her Green Card and went back and Magdi in [facility] in 1970. Father Dhiraj Ivy at age 84 in 14 yrs ago. Mother Alicia Ivy is 100 yrs and lived with patient for past 3 yrs in Oct 2020 . Has one sister Nory Finch 67 yr. lives on [facility] Works in the [place] [employer] was murdered last year. Has one daughter Bonnie Finch 35 yr(single, works in [address] in a Bank) and a son Robson Finch 42 yr lives with a GF in [place] near mother, and she had a son n March 2019 [employer] in the [place] [employer]. 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 They visit on holidays. 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 She went at [...] Nov 2018 Brother in law murdered by [employer] employee. She went to [place] for a month in May 2017 with her for vacation enjoyed it immensely. Saw urologist for her bladder issues She saw Dr Perlita knox on [place] [address] Mother is 99 yand has alzehiemers. [...] unspecified - D64.9?4.?Pulmonary fibrosis - J84.10, Seeing Pre Press Manager in [place] 10/12/23 Saw her twice No meds?5.?Generalized anxiety disorder - F41.1, [address]47[address] Will strat on nortryptylline 25 mg at [...] Months * Billing Information: * Visit Code:? 87273 Office Visit, Est Pt., Level 4. * Procedure Codes:? * Sign off status: Completed true * Provider:?Peter Harding MD Date:?2022 Generated for Kelsi merritt/Ele/eTransmitting on:?01/16/2025 07:09 PM EST History and Physical Notes * Examination Category Sub-Category Detail Notes Category Not es General Examination GENERAL APPEARANCE: in no ac zuleika distress, well developed, pale fatigued appearing NECK/THYROID: [...]
--- OUTSIDE RECORDS SUMMARY | 2025-01-16 19:09 | XMS_ITS | Clinical Summary ---
Author Organization [facility] Address [address] [place] [phone] Phone Care Team Providers Care Configuration Management Manager Name Role Phone Naina Steve MD Primary Care Provider [phone] Allergies No known active allergies Medications aspirin 81 mg EC tablet Take 1 tablet (81 mg total) by mouth 1 (one) time each day. Active levothyroxine (SYNTHROID, LEVOTHROID) 50 mcg tablet Take 1 tablet (50 mcg total) by mouth 1 (one) time each day before breakfast. 90 tablet 1 10/08/20 24 Active dexAMETHasone (DECADRON) 4 mg tabletIndicati ons:Smoldering multiple myeloma (SMM) Take 3 tabs(12 mg) by mouth once a week 36 each 11 10/15/20 24 Active losartan (COZAAR) 50 mg tablet TAKE 1 AND 1/2 TABLETS BY MOUTH DAILY 135 tablet 1 10/23/20 24 Active metoprolol succinate (TOPROL-XL) 25 mg 24 hr tablet Take 1 tablet (25 mg total) by mouth 1 (one) time each day. for 30 days 11/16/19 25 Active albuterol HFA (Proventil HFA) 90 mcg/actuation inhaler Inhale 2 puffs by mouth every 4 (four) hours if needed for wheezing or shortness of breath. 6.7 g 11/27/19 25 026 Active pomalidomide (POMALYST) 2 mg capsuleIndicat ions:Smolderin g multiple myeloma (SMM) Take 1 capsule (2 mg total) by mouth 1 (one) time each day Day 1-21 followed by 7 days off. 21 capsule 12/27/19 25 Active pantoprazole (PROTONIX) 40 mg EC tablet Take 1 tablet (40 mg total) by mouth 1 (one) time each day. for 90 days 90 tablet 1 01/08/20 25 Active Pomalyst 2 mg capsule TAKE 1 CAPSULE (2MG) BY MOUTH DAILY FOR 21 DAYS FOLLOWED BY 7 DAYS OFF 21 capsule 11/28/19 25 025 Discontinued pantoprazole (PROTONIX) 40 mg EC tablet Take 1 tablet (40 mg total) by mouth 1 (one) time each day. for 90 days 08/09/20 24 025 Discontinued(Re order) pomalidomide (POMALYST) 2 mg capsule Take 1 capsule (2 mg total) by mouth 1 (one) time each day 21 capsule 12/25/19 25 025 Discontinued(Re order) pomalidomide (POMALYST) 2 mg capsuleIndicat ions:Smolderin g multiple myeloma (SMM) Take 1 capsule (2 mg total) by mouth 1 (one) time each day Day 1-21 followed by 7 days off. 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 Encounters Date Type Department Care Team Description 11/27/2024 11:30 AM EST Office Visit Adult Medicine [address] [phone] Naina Steve MD RSV (respiratory syncytial virus infection) (Primary Dx) 11/26/2024 9:45 AM EST Office Visit [facility] Hematology Oncology [address] [place] [phone] Jose Francisco Izquierdo MD Smoldering multiple myeloma (SMM) (Primary Dx) 11/25/2024 1:27 PM EST - 11/25/2024 4:35 PM EST Emergency [facility] Emergency [address] [place] [phone] RSV (acute bronchiolitis due to respiratory syncytial virus) (Primary Dx) Discharge Disposition: Home or Self Care 11/02/2024 Telephone Adult Medicine [address] [phone] Naina Steve MD Referral (EXTERNAL) from Last 3 Months Surgical History Surgery [...] re flux disease) Hypertension DX:Hypertension Diabetes mellitus ([facility]) DX:D iabetes mellitus ([facility]) Heart disease DX:Heart disease Hypertension 03/16/2021 DX:Hypertension Multiple myeloma ([facility]/H[facility]) 03/16/2021 DX:Mu ltiple myeloma ([facility]); COMMENT: Sees Dr. Izquierdo Stress incontinence 03/16/2021 [...] drink = 0.6 oz pur e alcohol) Comments No Sex and Gender Information Value Date Recorded Sex Assigned at Not on file Legal Sex Female 5:47 AM EST Gender Identity Not on file Sexual Orientation Not on file Obstetrics History Last Filed [...] Description 02/25/2025 9:15 AM EDT Office Visit [facility] Hematology Oncology [address] [place] [phone] Jose Francisco Izquierdo MD [address] [place] [address] 03/07/2025 10:00 AM EDT Office Visit Adult Medicine [address] [phone] Naina Steve MD [address] [place] [address] Health Maintenance Due Date Last Done Comments Pneumococcal Vaccine: 50+ Years (2 of 2 - PCV) 10/29/2011 10/29/2010 Zoster Vaccines (1 of 2) 07/26/2016 05/31/2016 RSV Immunization Patients 60+ Years Old (1 - 1-dose 75+ series) 2021 Depression Screening 10/21/2022 Falls Risk Assessment 10/21/2022 Medicare Annual Wellness Visit 10/21/2022 Social Influencers of Health Screening 10/21/2022 Hypertension/CHF/CAD Annual BMP Blood Test 01/02/2026 01/02/2025, 11/25/2024, 11/19/2024, Additional history exists DTaP,Tdap,and Td Vaccines (2 [...] patient's age to complete this topic Meningococcal B Vacine Aged Out No lo nger eligible based on patient's age to complete this topic RSV Immunization Patients Under 20 months Aged Out No longer eligible based on patient's age to complete this topic Varicella Vaccines Aged Out No longer eligible based on patient's age to complete this topic Procedures Procedure Name Priority Date/Time Associated Diagnosis Comments BUN Routine 01/02/2025 2:20 PM EST Bradycardia PVC (premature ventricular contraction) CREATININE, SERUM Routine 01/02/2025 2:2 0 PM EST Bradycardia PVC (premature ventricular contraction) ECG 12-LEAD STAT 11/25/2024 3:26 PM EST [...] 10:20 AM EST Myeloma associated amyloidosis (CMS/HCC) HEPATITIS C SCREENING Routine 05/04/2022 [facility] DEXA AXIAL SKELETON Routine 01/07/2021 5:06 PM EST Encounter for screening for osteoporosis from Last 3 Months or Most Recently Relevant to Health Maintenance Results * Creatinine (01/02/2025 2:20 PM EST) Pathologist [facility] Creatinine 0.87 0.50 - 1.10 mg/dL LAB CHEMISTRY METHOD 01/02/2025 4:51 PM EST [facility] eGFR 68 >=60 mL/min/1. 73m2 LAB CHEMISTRY METHOD 01/02/2025 4:51 PM EST [facility] Comment:Calculation based on the??Chronic Kidney Disease Epidemiology Collaboration (CKD-EPI) equation refit??without adjustment for race. Blood Venous blood specimen / Unknown Venipuncture / Unknown 01/02/2025 2:20 PM EST 01/02/2025 2:20 PM EST us Kulwinder Clark MD LAB BLOOD ORDERABLES Final Re sult Performing Organization Address [facility]/ZIP Co de Phone Number [facility] [address] [place] [address], [place] [phone] * (ABNORMAL) BUN (01/02/2025 2:20 PM EST) Pathologist [facility] BUN 27(H) 5 - 25 mg/dL LAB CHEMISTRY METHOD 01/02/2025 4:51 PM EST [facility] Blood Venous blood specimen / Unknown Venipuncture / Unknown 01/02/2025 2:20 PM EST 01/02/2025 2:20 PM EST us Kulwinder Clark MD LAB BLOOD ORDERABLES Final Re sult [facility] [address] [place] [address], [place] [phone] * ECG 12 lead (11/25/2024 3:26 PM EST) Ventricular Rate ECG 67 BPM GEMUSE Atrial Rate 67 BPM GEMUSE P-R Interval 144 ms GEMUSE QRS Duration 84 ms GEMUSE Q-T Interval 434 ms GEMUSE QTc 458 ms GEMUSE P Wave [place] 45 degrees GEMUSE R [place] 12 degrees GEMUSE T [place] 86 degrees GEMUSE ECG Interpretation Normal sinus rhythm Left ventricular hypertrophy with repolarization abnormality Abnormal ECG When compared with ECG of 18-FEB-2024 14:57, Premature ventricular complexes are no longer Present Non-specific change in ST segment in Anterior leads Confirmed by Anderson CHEUNG, YELITZA ([id number]) on 11/26/2024 6:29:12 AM GEMUSE 11/25/2024 3:26 PM EST 11/26/2024 6:29 AM EST us Scooby David MD ECG ORDERABLES Final Res ult GEMUSE * XR Chest 2 Views (11/25/2024 [...] Signed Date: 11/25/2024 14:22 ET Workstation ID: [id number] Transcribed By: Self Edit Transcribed Date: 11/25/2024 [...] Signed Date: 11/25/2024 14:22 ET Workstation ID: [id number] Transcribed By: Self Edit Transcribed Date: 11/25/2024 14:20 ET Scooby David MD IMG XR PROCEDURES Final R esult * (ABNORMAL) Manual differential (11/25/2024 2:06 PM EST) Only the most recent of2 resultswithin the time period is included. Neutrophils % 55.0 % LAB HEMETOLOGY METHOD 5 2:55 PM [facility] Bands % 10.0 % LAB HEMETOLOGY METHOD 5 2:55 PM [facility] Lymphocytes % 30.0 % LAB HEMETOLOGY METHOD 5 2:55 PM [facility] Monocytes % 4.0 % LAB HEMETOLOGY METHOD 5 2:55 PM [facility] Eosinophils % 0.0 % LAB HEMETOLOGY METHOD 5 2:55 PM [facility] Basophils % 0.0 % LAB HEMETOLOGY METHOD 5 2:55 PM [facility] Metamyelocytes % 1.0(H) % LAB HEMETOLOGY METHOD 5 2:55 PM [facility] Neutrophils Absolute Manual 3.08 1.50 - 7.00 K/mcL LAB HEMETOLOGY METHOD 5 2:55 PM [facility] Bands Absolute Manual 0.56(H) 0.00 - 0.00 K/mcL LAB HEMETOLOGY METHOD 5 2:55 PM [facility] Lymphocytes Absolute 1.68 1.00 - 5.00 K/mcL LAB HEMETOLOGY METHOD 5 2:55 PM [facility] Monocytes Absolute Manual 0.22 0.20 - 1.00 K/mcL LAB HEMETOLOGY METHOD 5 2:55 PM [facility] Eosinophils Absolute Manual 0.00 0.00 - 0.50 K/mcL LAB HEMETOLOGY METHOD 5 2:55 PM [facility] Basophils Absolute Manual 0.00 0.00 - 0.20 K/mcL LAB HEMETOLOGY METHOD 5 2:55 PM [facility] Metamyelocytes Absolute Manual 0.06(H) 0.00 - 0.00 K/mcL LAB HEMETOLOGY METHOD 5 2:55 PM [facility] Rbc Morphology Consistent with indices Consistent with indices, Normal for LAB HEMETOLOGY METHOD 5 2:55 PM [facility] Platelet Morphology - WAM Normal Normal LAB HEMETOLOGY METHOD 5 2:55 PM [facility] Vacuolated Neutrophils Present Present(A) (none) LAB HEMETOLOGY METHOD 5 2:55 PM [facility] Blood Venous blood specimen / Unknown Venipuncture / Unknown 11/25/2024 2:06 PM EST 11/25/2024 2:12 PM EST us Scooby David MD LAB BLOOD ORDERABLES Swathi fatoumata Result [facility] [address] [place] [address], [place] [phone] * (ABNORMAL) CBC auto differential (11/25/2024 2:06 PM EST) Only the most recent of3 resultswithin the time period is included. [facility] WBC 5.6 4.8 - 10.8 K/mcL LAB HEMETOLOGY METHOD 11/25/2024 2:55 PM [facility] RBC 3.20(L) 3.80 - 4.80 M/mcL LAB HEMETOLOGY METHOD 11/25/2024 2:55 PM [facility] Hemoglobin 10.7(L) 11.5 - 16.0 g/dL LAB HEMETOLOGY METHOD 11/25/2024 2:55 PM [facility] Hematocrit 32.8(L) 35.0 - 47.0 % LAB HEMETOLOGY METHOD 11/25/2024 2:55 PM [facility] MCV 102.2(H) 79.0 - 98.0 FL LAB HEMETOLOGY METHOD 11/25/2024 2:55 PM [facility] MCH 33.3(H) 27.0 - 32.0 pcg LAB HEMETOLOGY METHOD 11/25/2024 2:55 PM [facility] MCHC 32.6 32.0 - 37.0 g/dL LAB HEMETOLOGY METHOD 11/25/2024 2:55 PM [facility] RDW 14.2 11.0 - 15.0 % LAB HEMETOLOGY METHOD 11/25/2024 2:55 PM [facility] Platelets 191 130 - 400 K/mcL LAB HEMETOLOGY METHOD 11/25/2024 2:55 PM EST [facility] MPV 9.6 7.0 - 11.0 FL LAB HEMETOLOGY METHOD 11/25/2024 2:55 PM EST [facility] NRBC 0.0 <1.0 % LAB HEMETOLOGY METHOD 11/25/2024 2:55 PM EST [facility] NRBC Absolute 0.00 <0.10 K/mcL LAB HEMETOLOGY METHOD 11/25/2024 2:55 PM EST [facility] Blood Venous blood specimen / Unknown Venipuncture / Unknown 11/25/2024 2:06 PM EST 11/25/2024 2:12 PM EST Scooby David MD LAB BLOOD ORDERABLES Swathi l Result [facility] [address] [place] [address], * (ABNORMAL) Basic metabolic panel (11/25/2024 2:06 PM EST) Sodium 135 133 - 145 mmol/L LAB CHEMISTRY METHOD 11/25/2024 2:35 PM [facility] Potassium 3.7 3.5 - 5.5 mmol/L LAB CHEMISTRY METHOD 11/25/2024 2:35 PM [facility] Chloride 107 96 - 110 mmol/L LAB CHEMISTRY METHOD 11/25/2024 2:35 PM [facility] CO2 24 21 - 32 mmol/L LAB CHEMISTRY METHOD 11/25/2024 2:35 PM [facility] Anion Gap 4 3 - 11 LAB CHEMISTRY METHOD 11/25/2024 2:35 PM [facility] Glucose 153(H) 70 - 100 mg/dL LAB CHEMISTRY METHOD 11/25/2024 2:35 PM [facility] BUN 19 5 - 25 mg/dL LAB CHEMISTRY METHOD 11/25/2024 2:35 PM EST [facility] Creatinine 0.93 0.50 - 1.10 mg/dL LAB CHEMISTRY METHOD 11/25/2024 2:35 PM EST [facility] eGFR 63 >=60 mL/min/1. 73m2 LAB CHEMISTRY METHOD 11/25/2024 2:35 PM EST [facility] Comment:Calculation based on the??Chronic Kidney Disease Epidemiology Collaboration (CKD-EPI) equation refit??without adjustment for race. BUN/Creatinine Ratio 20.4 LAB CHEMISTRY METHOD 11/25/2024 2:35 PM EST [facility] Calcium 8.7 8.5 - 10.5 mg/dL LAB CHEMISTRY METHOD 11/25/2024 2:35 PM EST [facility] Blood Venous blood specimen / Unknown Venipuncture / Unknown 11/25/2024 2:06 PM EST 11/25/2024 2:12 PM EST Scooby David MD LAB BLOOD ORDERABLES Swathi l Result [facility] [address] [place] [address], [place] [phone] * (ABNORMAL) Respiratory virus panel molecular study (11/25/2024 1:59 PM EST) Adenovirus Detection by PCR Not Detected Not Detected LAB MICROBIOLOGY METHOD 11/25/2024 3:18 PM EST [facility] Influenza A PCR Not Detected Not Detected LAB MICROBIOLOGY METHOD 11/25/2024 3:18 PM EST [facility] Influenza B PCR Not Detected Not Detected LAB MICROBIOLOGY METHOD 11/25/2024 3:18 PM EST [facility] Coronavirus 229E Not Detected Not Detected LAB MICROBIOLOGY METHOD 11/25/2024 3:18 PM EST [facility] Coronavirus HKU1 Not Detected Not Detected LAB MICROBIOLOGY METHOD 11/25/2024 3:18 PM EST [facility] Coronavirus OC43 Not Detected Not Detected LAB MICROBIOLOGY METHOD 11/25/2024 3:18 PM EST [facility] Coronavirus NL63 Not Detected Not Detected LAB MICROBIOLOGY METHOD 11/25/2024 3:18 PM [facility] Parainfluenza Virus 1 Not Detected Not Detected LAB MICROBIOLOGY METHOD 11/25/2024 3:18 PM [facility] Parainfluenza Virus 2 Not Detected Not Detected LAB MICROBIOLOGY METHOD 11/25/2024 3:18 PM [facility] Parainfluenza Virus 3 Not Detected Not Detected LAB MICROBIOLOGY METHOD 11/25/2024 3:18 PM [facility] Parainfluenza Virus 4 Not Detected Not Detected LAB MICROBIOLOGY METHOD 11/25/2024 3:18 PM [facility] RSV PCR Detected(A ) Not Detected LAB MICROBIOLOGY METHOD 11/25/2024 3:18 PM [facility] Human Metapneumovirus A and B Not Detected Not Detected LAB MICROBIOLOGY METHOD 11/25/2024 3:18 PM [facility] Rhinovirus/Entero virus Not Detected Not Detected LAB MICROBIOLOGY METHOD 11/25/2024 3:18 PM [facility] Bordetella pertussis Not Detected Not Detected LAB MICROBIOLOGY METHOD 11/25/2024 3:18 PM [facility] Bordetella parapertussis Not Detected Not Detected LAB MICROBIOLOGY METHOD 11/25/2024 3:18 PM [facility] Mycoplasma pneumo by PCR Not Detected Not Detected LAB MICROBIOLOGY METHOD 11/25/2024 3:18 PM [facility] Chlamydia pneumoniae Not Detected Not Detected LAB MICROBIOLOGY METHOD 11/25/2024 3:18 PM [facility] SARS COV-2 Not Detected Not Detected LAB MICROBIOLOGY METHOD 11/25/2024 3:18 PM [facility] Swab Both anterior nares / Unknown Non-blood Collection / Unknown 11/25/2024 1:59 PM EST 11/25/2024 2:12 PM EST Narrative [facility] - 11/25/2024 3:18 PM EST Testing was performed using the [employer] Respiratory Pathogen PCR Assay. All results must [...] detection. Scooby David MD LAB MICROBIOLOGY - GENERA L ORDERABLES Final Result [facility] [address] [place] [address], * ECG-Annotated (11/25/2024) us Provider Onbase ECG ORDERABLES Final Result * (ABNORMAL) Comprehensive metabolic panel (11/19/2024 10:14 AM EST) Only the most recent of2 resultswithin the time period is included. Sodium 136 133 - 145 mmol/L LAB CHEMISTRY METHOD 11/19/2024 11:53 AM [facility] Potassium 3.7 3.5 - 5.5 mmol/L LAB CHEMISTRY METHOD 11/19/2024 11:53 AM [facility] Chloride 106 96 - 110 mmol/L LAB CHEMISTRY METHOD 11/19/2024 11:53 AM [facility] CO2 23 21 - 32 mmol/L LAB CHEMISTRY METHOD 11/19/2024 11:53 AM [facility] Anion Gap 7 3 - 11 LAB CHEMISTRY METHOD 11/19/2024 11:53 AM [facility] Glucose 156(H) 70 - 100 mg/dL LAB CHEMISTRY METHOD 11/19/2024 11:53 AM [facility] BUN 25 5 - 25 mg/dL LAB CHEMISTRY METHOD 11/19/2024 11:53 AM [facility] Creatinine 1.04 0.50 - 1.10 mg/dL LAB CHEMISTRY METHOD 11/19/2024 11:53 AM [facility] eGFR 55(L) >=60 mL/min/1. 73m2 LAB CHEMISTRY METHOD 11/19/2024 11:53 AM [facility] Comment:Calculation based on the??Chronic Kidney Disease Epidemiology Collaboration (CKD-EPI) equation refit??without adjustment for race. BUN/Creatinine Ratio 24.0 LAB CHEMISTRY METHOD 11/19/2024 11:53 AM [facility] Calcium 9.4 8.5 - 10.5 mg/dL LAB CHEMISTRY METHOD 11/19/2024 11:53 AM [facility] AST (SGOT) 10 10 - 42 unit/L LAB CHEMISTRY METHOD 11/19/2024 11:53 AM [facility] ALT (SGPT) 20 10 - 60 unit/L LAB CHEMISTRY METHOD 11/19/2024 11:53 AM [facility] Alkaline Phosphatase 128(H) 42 - 121 unit/L LAB CHEMISTRY METHOD 11/19/2024 11:53 AM [facility] Total Protein 8.0 6.0 - 8.0 g/dL LAB CHEMISTRY METHOD 11/19/2024 11:53 AM [facility] Albumin 3.1(L) 3.2 - 5.0 g/dL LAB CHEMISTRY METHOD 11/19/2024 11:53 AM [facility] Total Bilirubin 0.4 0.0 - 1.4 mg/dL LAB CHEMISTRY METHOD 11/19/2024 11:53 AM [facility] Blood Venous blood specimen / Unknown Venipuncture / Unknown 11/19/2024 10:14 AM EST 11/19/2024 11:13 AM EST Jose Francisco Izquierdo MD LAB BLOOD ORDERABLES Final R esult [facility] [address] [place] [address], * Hepatitis C Screening (05/04/2022) Hepatitis C Screening Abstracted Historical Provider HEALTH MAINTENANCE Final Result * [facility] DEXA AXIAL SKELETON (01/07/2021 5:06 PM EST) Anatomical Region Laterality Modality Mammography 01/07/2021 9:11 AM EST Narrative 01/07/2021 5:06 PM EST [facility] Diagnostic Imaging Department [address] [place], [place] [id number] Patient: ??JACQUELINE FINCH ?/Age/Sex: 1945 - 75 - F Unit#: ??[id number] ? Location/Status: ??SPDIMAM/REG CLI ? Mnemonic/Ordering Site: ??MAMDEXAAX/SPMAM Ordering Physician: ??PETER LAZAR MD Mike Dexa Axial Skeleton - 01/07/21941 History: Low estrogen state due to menopause. Comparison: 04/12/14 Findings: Bone densitometry is performed utilizing dual energy x-ray absorptiometry (DXA) in the Loterity unit. The lumbar spine and proximal femora [...] 21.7 percent ??Hip 8.6 percent. IMPRESSION: Osteoporosis. [id number] Dictating Physician: ??RADHA SAINI MD Electronically Signed by: ??RADHA SAINI MD Dic Date/Time: ??01/07/211704 Sign date/Time: ??01/07/211705 Procedure Note Radha Saini MD - 11/02/2022 [facility] Diagnostic Imaging Department [address] [place] [address] Patient: JACQUELINE FINCH Eva Avila/Age/Sex: 1945 - 75 - F Unit#: [id number] [facility] Ordering Physician: PETER LAZAR MD Mike Dexa Axial Skeleton - 01/07/21 [id number] History: Low estrogen state due to menopause. Comparison: 04/12/14 Findings: Bone densitometry is performed utilizing dual energy x-ray absorptiometry(DXA) in the Loterity unit. The lumbar spine and proximal femora [...] 21.7 percent Hip 8.6 percent. IMPRESSION: Osteoporosis. [id number] Dictating Physician: RDAHA SAINI MD Electronically Signed by: RADHA SAINI MD Dic Date/Time: 01/07/211704 Sign date/Time: 01/07/211705 Peter Lazar MD IMG BI PROCEDURES Final Result from Last 3 Months or Most Recently Relevant to Health Maintenance Insurance [employer] Care Teams Configuration Management Manager Relationship Specialty Start Date End Date Naina Steve MD [address] [place] [phone] PCP - General 11/09/23
== END 2025-01-16 16:02 | disposition home or self-care (01) ==
LOC: HO.CT 16:01
PROVIDERS: PCP Internal Medicine; Visit Provider Psychiatry & Neurology Neurology
DX: G30.9 Alzheimer's disease, unspecified (principal)
CPT/HCPCS: 70450

== ENCOUNTER → 2025-01-16 16:06 | Outpatient (BNV) | payer MEDICARE, SELFPAY | PROVIDERS: PCP Internal Medicine; Visit Provider Radiology Vascular & Interventional Radiology | DX: G30.9 Alzheimer's disease, unspecified (principal); I67.82 Cerebral ischemia | CPT/HCPCS: 70450 ==

== ENCOUNTER 2025-08-28 09:23 | Outpatient (AMB) | payer MEDICARE, SELFPAY ==
--- NOTE | 2025-08-28 09:38 | A.OFFVIS_ITS ---
Intake Visit Reasons: 4mon AD Medication List - Last Reconciled 08/28/25 by Hilary Sen MD apixaban (Eliquis) 5 mg PO BID dexamethasone 4 mg PO TID diltiazem HCl ER (Cardizem SR) 120 mg PO BID donepezil 10 mg PO DAILY levothyroxine 50 mcg PO DAILY losartan 75 mg PO DAILY pantoprazole DR 40 mg PO DAILY pomalidomide 2 mg PO DAILY HPI Comments Details: Overall she has been about the same. No complaints. Here with her and her daughter Jhoana on the phone.?The family has noted that she has had cognitive decline over the last 2-3 years with slowly progressive short-term memory problems and repeating herself.? She has stopped cooking in the last 2 years. She is more talkative and participates in conversation and repeats herself.? She sometimes has trouble dressing and has some elements of sadness.? She occasionally gets agitated with her but nothing major. Resists showering.? Lately she has not been doing much.? She sleeps well at night.? She has no other specific complaints.? Her father had dementia when he at 85 and her mother developed dementia when she was 96 and lifted 100. The patient is under treatment for multiple myeloma, hypertension, hypothyroidism and has pulmonary fibrosis. Review of Systems Const Details: Sleep:? Difficulty getting to sleepdenies.? Difficulty maintaining sleepdenies?.? Urge to move legsdenies.? Teeth grindingdenies.? Shouting or Kicking during sleep denies.? Abnormal behavior during sleepdenies.? Excessive sleepdenies.? Snoring denies.? Daytime sleepinessdenies. ???General/Constitutional:? Change in appetitedenies.? Chillsdenies.? Fatiguedenies.? Feverdenies.? Weight gaindenies.? Weight lossdenies. ???Ophthalmologic:? Blurred visiondenies.? Diminished visual acuitydenies. ???ENT:? Stuffinessdenies.? Decreased hearingdenies.? Dry mouthdenies.? Ear paindenies.? Nosebleeddenies.? Ringing in the earsdenies.? Sinus paindenies.? Sore throat denies.? Swollen glandsdenies. ???Endocrine:? Cold intolerancedenies.? Excessive thirstdenies.? Frequent urinationdenies.? Heat intolerancedenies. ???Respiratory:? Shortness of breathdenies.? Chest paindenies.? Coughdenies. ???Breast:? Breast lumpdenies.? Nipple dischargedenies. ???Cardiovascular:? Chest pain at restdenies.? Chest pain with exertiondenies.? Claudicationdenies .? Dizzinessdenies.? Fluid accumulation in the legsdenies.? Irregular heartbeat denies.? Palpitationsdenies. ???Gastrointestinal:? Abdominal paindenies.? Constipationdenies.? Diarrheadenies.? Difficulty swallowingdenies.? Heartburndenies.? Nauseadenies.? Rectal bleedingdenies. ???Hematology:? Easy bruisingdenies.? Prolonged bleedingdenies. ???Genitourinary:? Frequent urinationdenies.? Urgencydenies.? Incontinencedenies.? Erectile Dysfunctiondenies. ???Musculoskeletal:? Neck paindenies.? Back paindenies.? Muscle achesdenies.? Painful jointsdenies.? Sciaticadenies.? Weaknessdenies. ???Podiatric:? Difficulty walkingdenies.? Foot numbnessdenies. ???Neurologic:? Difficulty swallowingdenies.? Balance difficultydenies.? Coordinationnormal.? Difficulty speakingdenies.? Dizzinessdenies.? Faintingdenies.? Gait abnormality denies.? Headachedenies.? Loss of strengthdenies.? Loss of use of extremity denies.? Low back paindenies.? Memory lossadmits.? Seizuresdenies.? Ticsdenies.? Tingling/Numbnessdenies.? Transient loss of visiondenies.? Tremordenies. ???Psychiatric:? Anxietydenies.? Auditory/visual hallucinationsdenies.? Delusionsdenies.? Depressed mooddenies.? Stressorsdenies.? Substance abusedenies.? Suicidal thoughtsdenies. Physical Exam Neuro Other: Neurological: Abnormal neurological findings:??MMS 24/30.?Mental Status:??alert and oriented X 2,?.?Cranial Nerves:??Pupils are equal, round and reactive to light. Fundoscopy shows normal disc bilaterally. External occular muscles are intact. Visual davidson are full, no ptosis. Face is symmetrical, no facial weakness or droop. Facial sensations are normal. Tongue protrudes in midline. Palate elevates symmetrically. Shoulder shrugging is normal..?Motor Examination:??Normal muscle tone, bulk and strength,?No atrophy or fasciculations,?No drift of the extended upper extremities,?Deep tendon reflexes are 2+?,?Plantars are flexor?.?Straight Leg Raising:??90 degrees.?Sensory Exam:??Normal light touch, temperature, pinprick, vibration and joint-position sensations?,?Rhomberg sign is absent.?Coordination:??no ataxia,?no titubation,?csjhit-fy-erpy, uiwx-tywc-vumv test and rapid alternating movements were normal.?Gait Exam:??Within normal limits.?Cerebellar Signs:??Xhamaq-qu-yltw and roam-po-barq is normal,?no dysdiadochokinesia?.?Extrapyramidal System:??No tremor, rigidity with normal facial expressions,?No bradykinesia, no bradyphrenia. Normal arm swing and posture. No propulsion or retropulsion.?Speech:??Normal,?no dysphasia or dysarthria..? Mini Mental Status Exam: Level of Consciousness:??Alert.?Orientation:??Knows place and? year,? day and season,?Knows correct city,? Knows correct location and floor.?Registration:??Able to register 3 objects.?Attention:??Serial 7's unable.?Recall:??Able to recall 0 out of 3 objects.?Language:??Normal spontaneous speech, fluency, repetition,naming, comprehension, reading and writing.?Total Score:??24/30.? General Examination: GENERAL APPEARANCE:??normal,?in no acute distress.?HEAD:??normocephalic,?atraumatic.?EYES:??sclera non- icteric,?conjunctiva clear.?EARS:??auditory canal clear,?tympanic membrane intact, clear.?NOSE:??no lesions.?ORAL CAVITY:??gums normal,?mucosa moist,?no lesions.?THROAT:??clear.?NECK/THYROID:??no cervical lymphadenopathy,?thyroid normal,?neck supple, full range of motion,?no carotid bruit.?SKIN:??no rashes,?no significant birthmarks.?HEART:??S1, S2 normal,?no murmurs.?LUNGS:??clear anteriorly and posteriorly.?CHEST:??no gross rib deformity,?clear to auscultation.?BACK:??normal exam of spine.?EXTREMITIES:??no edema.?PERIPHERAL PULSES:??normal.?PSYCH:??alert, as above.? Assessment & Plan Assessment & Plan (1) Alzheimer's disease: Code(s): G30.9 - Alzheimer's disease, unspecified; F02.80 - Dementia in other diseases classified elsewhere, unspecified severity, without behavioral disturbance, psychotic disturbance, mood disturbance, and anxiety Category: Medical Plan The family has decided not to add Namenda at this point and just continue on the donepezil. The pros and cons of adding the 2nd drug was discussed with them and with Jhoana the daughter on telephone. Medications: New donepezil 10 mg PO DAILY 90 tabs 3RF 90 days Coding Level of Care Code Est Pt Level 4 (27150) Diagnoses Alzheimer's disease G30.9; F02.80
--- OUTSIDE RECORDS SUMMARY | 2025-08-28 10:34 | XMS_ITS | Clinical Summary ---
Author Organization [facility] Address [address] [place] [address] Phone Care Team Providers Care Stock Handler Floorperson Name Role Phone Naina Steve MD Primary Care Provider [phone] Medications traZODone (DESYREL) 50 MG tablet 1 tablet at bedtime as needed 11/13/2020 Active nortriptyline (PAMELOR) 25 MG capsule 1 capsule. 11/13/2020 Active metoprolol tartrate (LOPRESSOR) 25 MG tablet Take 25 mg by mouth 2 (two) times a day with meals. 04/19/2022 Active lisinopril (PRINIVIL,ZESTR IL) 20 MG tablet Take 20 mg by mouth daily. 03/07/2022 Active levothyroxine (SYNTHROID, LEVOTHROID) 50 MCG tablet 1 tablet. 05/29/2021 Active hydroCHLOROthia zide (MICROZIDE) 12.5 mg capsule Take by mouth daily. 04/01/2022 Active aspirin 81 MG EC tablet 1 tablet. Active amLODIPine (NORVASC) 2.5 MG tablet 1 tablet. Active Active Problems Problem Noted Date Diagnosed Date Gastro-esophageal reflux disease without esophag itis 05/04/2022 Generalized anxiety disorder 05/04/2022 Hypertension 05/04/2022 Hypothyroidism 05/04/2022 Migraine with aura 05/04/2022 Multiple myeloma 05/04/2022 Sleep disorder 05/04/2022 Ventricular premature contractions 05/04/2022 Vitamin D deficiency 05/04/2022 Age related osteoporosis 05/04/2022 Adjustment disorder with depressed mood 05/04/20 22 Encounters Date Type Department Care Team Description 06/04/2025 10:00 AM EDT Office Visit [facility] [address], [address], [address] [place] [address] Jamison Gooden MD ILD (interstitial lung disease) (Primary Dx); Dementia, unspecified dementia severity, unspecified dementia type, unspecified whether behavioral, psychotic, or mood disturbance or anxiety 06/04/2025 9:17 AM EDT - 06/04/2025 11:59 PM EDT Hospital Encounter [facility] [address], [address], [address] [place] [address] Jamison Gooden MD Discharge Disposition: Home or Self Care from Last 3 Months Social History Tobacco Use Types Packs/Day Years Used Date Smoking Tobacco: Never Tobacco Cessation:Counseling Given: Not Answered Education Answer Date Recorded Are you interested in more education? Not on rakel e 03/11/2023 Are you concerned about learning? Not on file 03/11/2023 No 03/11/2023 No 03/11/2023 Digital Access Answer Date Recorded No 04/05/2023 No 04/05/2023 Reliable internet access at home? Not on file 04/05/2023 Device with a working camera? Not on file Comments Unknown Sex and Gender Information Value Date Recorded Sex Assigned at Not on file Legal Sex Female 4:11 PM EST Gender Identity Not on file Sexual Orientation Not on file Last Filed Vital Signs Vital Sign Reading Time Taken Comments Blood Pressure 158/84 06/04/2025 9:53 AM EDT Pulse 56 06/04/2025 9:53 AM EDT Temperature 36.2 C (97.1 F) 06/04/2025 9:53 AM EDT Respiratory Rate 16 06/04/2025 9:53 AM EDT Oxygen Saturation 99% 06/04/2025 9:53 AM EDT Inhaled Oxygen Concentration - - Weight 64 kg (141 lb) 06/04/2025 9:53 AM EDT Height 157.5 cm (5' 2 ) 06/04/2025 9:53 AM EDT Body Mass Index 25.79 06/04/2025 9:53 AM EDT Plan of Treatment Upcoming Encounters Date Type Department Care Team (Late st Contact Info) Description 12/24/2025 3:00 PM EST Appointment [facility] [address], [address], [address] [place] [address] Jamison Gooden MD [address] [place] [phone] [email or web address] 12/24/2025 3:30 PM EST Office Visit [facility] [address], [address], [address] [place] [address] Jamison Gooden MD [address] [place] [phone] [email or web address] Health Maintenance Due Date Last Done Comments LIPID PANEL 1946 TSH LEVEL 1946 DEPRESSION SCREENING 1958 SMOKING STATUS SCREENING (Once After 26 Yrs) 1972 OSTEOPOROSIS SCREENING INITIAL (ONE-TIME) 2011 PNEUMOCOCCAL VACCINES (50+ years) (2 of 2 - PCV) 10/29/2011 10/29/2010 ZOSTER VACCINES (1 of 2) 07/26/2016 05/31/2016 RSV VACCINE (1 - 1-dose 75+ series) 2021 CREATININE LEVEL 05/04/2023 05/04/2022 POTASSIUM LEVEL 05/04/2023 05/04/2022 INFLUENZA VACCINE (#1) 2025 , 09/23/2021, 08/31/2019, Additional history exists COVID-19 VACCINE (2024- season) 2025 04/19/2022, 09/23/2021, 02/13/2021, Additional history exists BLOOD PRESSURE 12/05/2025 06/04/2025 Adult Td,Tdap Booster 08/20/2029 08/20/2019 HEPATITIS C SCREENING Completed 05/04/2022 HEPATITIS A VACCINES Aged Out No long er eligible based on patient's age to complete this topic HIB VACCINES Aged Out No longer eligi ble based on patient's age to complete this topic MENINGOCOCCAL VACCINES (ACWY) Aged Out No longer eligible based on patient's age to complete this topic MENINGOCOCCAL VACCINES (B) Aged Out N o longer eligible based on patient's age to complete this topic Medical Devices Not on file Procedures Procedure Name Priority Date/Time Associated Diagnosis Comments HC SPMTRY W/VC EXPIRATORY JEROME W/WO MXML VOL VNTJ Routine 06/04/2025 9:31 AM EDT ILD (interstitial lung disease) HEPATITIS C ANTIBODY, QUALITATIVE Routine 05/04/2022 5:09 PM EDT Need for hepatitis C screening test BASIC METABOLIC PANEL Routine 05/04/2022 5:09 PM EDT Interstitial lung disease from Last 3 Months or Most Recently Relevant to Health Maintenance Results * Pulmonary Function Test Reason for Exam: Dyspnea/Shortness of Breath; Type of PFT Test: Spirometry without bronchodilator, DLCO; Performing Location: [facility] (06/04/2025 9:31 AM EDT) Anatomical Region Laterality Modality Other 06/04/2025 9:31 AM EDT Jamison Gooden MD PFT ORDERABLES Final Resu lt * Hepatitis C antibody, qualitative (05/04/2022 5:09 PM EDT) HCV ANTIBODY Negative Negative [facility] Comment:Antibodies to HCV no t detected. Does not exclude the possibility of exposure to HCV. 05/04/2022 5:09 PM EDT 05/04/2022 6:26 PM EDT Jamison Gooden MD LAB BLOOD ORDERABLES Final Result [facility] [address] [place] [address] * (ABNORMAL) Basic metabolic panel (05/04/2022 5:09 PM EDT) SODIUM 132(L) 135 - 145 mmol/L [facility] POTASSIUM 4.2 3.4 - 5.0 mmol/L [facility] CHLORIDE 97(L) 98 - 108 mmol/L [facility] CO2 26 23 - 32 mmol/L [facility] BUN 22 8 - 25 mg/dL [facility] CREATININE 0.88 0.60 - 1.50 mg/dL [facility] GLUCOSE 97 70 - 110 mg/dL [facility] CALCIUM 9.7 8.5 - 10.5 mg/dL [facility] EGFR 68 >59 mL/min/1. 73m2 [facility] Comment:Estimated glomerular filtration rate calculated using the CKD-EPI refit equation. ANION GAP 9 3 - 17 mmol/L [facility] 05/04/2022 5:09 PM EDT 05/04/2022 6:25 PM EDT us Jamison Gooden MD LAB BLOOD ORDERABLES Final Result Performing Organization Address City/State/[facility] Co de Phone Number [address] [phone] from Last 3 Months or Most Recently Relevant to Health Maintenance Insurance [employer] Care Teams Stock Handler Floorperson Relationship Specialty Start Date End Date Naina Steve MD [address] [place] [phone] PCP - General Internal Medicine 10/26/24 Additional Source Comments The information contained in this document represents components of the legal health record. It is not the complete legal health record.[facility]
--- OUTSIDE RECORDS SUMMARY | 2025-08-28 10:34 | XMS_ITS ---
Author Name [facility] Organization Unknown Care Team Organization Name Specialty Phone Email Start Date End Da [facility] 07/03/2025
--- OUTSIDE RECORDS SUMMARY | 2025-08-28 10:34 | XMS_ITS | Encounter Summary ---
Author Organization [facility] Address [address] [place] [address] Phone Care Team Providers Care Heat Treat Puller Name Role Phone Peter Harding MD Primary Care Provider [phone] Naina Steve MD Primary Care Provider [phone] Encounter Details Date Type Department Care Team (Late st Contact Info) Description 03/31/2023 Procedure Pass [facility], Ct Scan - [address] [address] Social History Tobacco Use Types Packs/Day Years Used Date Smoking Tobacco: Never Assessed Education Answer Date Recorded Are you interested in more education? Not on rakel e 03/11/2023 Are you concerned about learning? Not on file 03/11/2023 No 03/11/2023 No 03/11/2023 Comments Unknown Sex and Gender Information Value Date Recorded Sex Assigned at Not on file Legal Sex Female 4:11 PM EST Gender Identity Not on file Sexual Orientation Not on file documented as of this encounter Plan of Treatment Upcoming Encounters Date Type Department Care Team (Late st Contact Info) Description 12/24/2025 3:00 PM EST Appointment [facility] [address] [facility] [address] [facility], 2nd Floor, [address] [place] [address] Jamison Gooden MD [address] [place] [phone] [email or web address] 12/24/2025 3:30 PM EST Office Visit [facility] [address] [facility], [address]nd Floor, [address] [place] [address] Jamison Gooden MD [address] [place] [address] [email or web address] documented as of this encounter Visit Diagnoses Not on filedocumented in this encounter Care Teams Heat Treat Puller Relationship Specialty Start Date End Date Peter Harding MD [address] [place] [address] PCP - General Internal Medicine 11/20/18 10/25/24 Naina Steve MD [address] [place] [phone] PCP - General Internal Medicine 10/26/24 documented as of this encounter Additional Source Comments The information contained in this document represents components of the legal health record. It is not the complete legal health record.[facility]
--- OUTSIDE RECORDS SUMMARY | 2025-08-28 10:34 | XMS_ITS | Clinical Summary ---
Author Organization [facility] Address [address] [place] [address] Care Team Providers Care Chainstitch Elastic Attacher Name Role Phone Naina Steve MD Primary Care Provider [phone] Allergies No known active allergies Medications Medication [...] 52 07/30/2024 9:49 AM EDT Temperature 36.8 C (98.3 F) 07/30/2024 9:49 AM EDT Respiratory Rate - - Oxygen Saturation 100% [...] Evaluation 1964 Shingrix-Zoster Vaccine (1 of 2) 1996 Fall Risk Assessment 2011 Osteoporosis Screening (DEXA Scan) 2011 Pneumococcal Vaccine (2 of 2 - PCV) 10/29/2011 10/29/2010 RSV Adult > 60+ Yrs or (1 - 1-dose 75+ series) 2021 COVID-19 Vaccine ( - season) 2025 04/19/2022, 09/23/2021, 02/13/2021, Additional history exists Influenza Vaccine (#1) 2025 , 09/07/2022, 09/23/2021, Additional history exists DTap / Tdap / Td (2 - Td or Tdap) 08/20/2029 08/20/2019 Hepatitis C Screening Completed 05/04/2022 Hepatitis B Vaccines Aged Out No long er eligible based on patient's age to complete this topic RSV Ped < 20 months Aged Out No longe r eligible based on patient's age to complete this topic Care Teams Chainstitch Elastic Attacher Relationship Specialty Start Date End Date Naina Steve MD [address] [place] [address] PCP - General Internal Medicine 12/23/23
--- OUTSIDE RECORDS SUMMARY | 2025-08-28 10:34 | XMS_ITS | Encounter Summary ---
Author Organization [facility] Address [address] [place] [address] Phone Care Team Providers Care Heritage Consultant Name Role Phone Peter Harding MD Primary Care Provider [phone] Naina Steve MD Primary Care Provider [phone] Encounter Details Date Type Department Care Team (Late st Contact Info) Description 11/22/2018 Ancillary [facility] [address] [place] [address] Satish Condon MD [address] [address] Social History Tobacco Use Types Packs/Day Years Used Date Smoking Tobacco: Never Assessed Comments Unknown Sex and Gender Information Value Date Recorded Sex Assigned at Not on file Legal Sex Female 4:11 PM EST Gender Identity Not on file Sexual Orientation Not on file documented as of this encounter Plan of Treatment Upcoming Encounters Date Type Department Care Team (Late st Contact Info) Description 12/24/2025 3:00 PM EST Appointment [facility] [address] [facility], [address], [address] [place] [address] Jamison Gooden MD [address] [place] [phone] [email or web address] 12/24/2025 3:30 PM EST Office Visit [facility] [address] [facility], [address], [address] [place] [address] Jamison Gooden MD [address] [place] [phone] ANNA@[email or web address] documented as of this encounter Visit Diagnoses Not on filedocumented in this encounter Care Teams Heritage Consultant Relationship Specialty Start Date End Date Peter Harding MD [address] [place] [address] PCP - General Internal Medicine 11/20/18 10/25/24 Naina Steve MD [address] [place] [phone] PCP - General Internal Medicine 10/26/24 documented as of this encounter Additional Source Comments The information contained in this document represents components of the legal health record. It is not the complete legal health record.[facility]
--- OUTSIDE RECORDS SUMMARY | 2025-08-28 10:34 | XMS_ITS | Encounter Summary ---
Author Organization [facility] Address [address] [place] [address] [place] [address] Phone Care Team Providers Care Culinary Specialist Name Role Phone Peter Harding MD Primary Care Provider [phone] Naina Steve MD Primary Care Provider [phone] Encounter Details Date Type Department Care Team (Late st Contact Info) Description 04/10/2024 Procedure Pass [facility] [address] [place] [address] Social History Tobacco Use Types Packs/Day Years Used Date Smoking Tobacco: Never Education Answer Date Recorded Are you interested [...] Encounters Date Type Department Care Team (Late Contact Info) Description 12/24/2025 3:00 PM EST Appointment [facility] [address] [place] [address], 2nd Floor, [address] [place] [address] Jamison Gooden MD [address] [place] [phone] [email or web address] 12/24/2025 3:30 PM EST Office Visit [facility] [address] [place] [facility], [address]nd Floor, [address] [place] [address] Jamison Gooden MD [address] [place] [address] [email or web address] documented as of this encounter Visit Diagnoses Not on filedocumented in this encounter Care Teams Culinary Specialist Relationship Specialty Start Date End Date Peter Harding MD [address] [place] [address] PCP - General Internal Medicine 11/20/18 10/25/24 Naina Steve MD [address] [place] [phone] PCP - General Internal Medicine 10/26/24 documented as of this encounter Additional Source Comments The information contained in this document represents components of the legal health record. It is not the complete legal health record.[facility]
--- OUTSIDE RECORDS SUMMARY | 2025-08-28 10:34 | XMS_ITS | Encounter Summary ---
Author Organization [facility] Address [address] [facility] [address] [place] [phone] Phone Care Team Providers Care Process Expert Name Role Phone Peter Harding MD Primary Care Provider [phone] Naina Steve MD Primary Care Provider [phone] Encounter Details Date Type Department Care Team (Latest Contact Info) Description 11/22/2018 Ancillary [facility] [address] [place] [address] Satish Condon MD [address] [address] PVC's (premature ventricular contractions) Social History Tobacco Use Types Packs/Day Years [...] Info) Description 12/24/2025 3:00 PM EST Appointment [facility] [address] [facility], 2nd Floor, [address] [place] [address] Jamison Gooden MD [address] [place] [phone] [email or web address] 12/24/2025 3:30 PM EST Office Visit [facility] [address] [facility], 2nd Floor, [address] [place] [address] Jamison Gooden MD [address] [place] [phone] ANNA@[email or web address] documented as of this encounter Results * Holter Monitor 24 Hours (11/22/2018 11:46 AM EST) Anatomical Region Laterality Modality Heart Other Narrative 11/22/2018 6:18 PM EST 24-hour monitor: Baseline rhythm is sinus with a minimum heart rate 51 maximum 103 average 65 bpm. Occasional atrial ectopy present. There is a marked increase in frequency of ventricular ectopy, about 19,000 PVCs during the recording. These are mainly isolated PVCs with occasional couplets. There is occasional ventricular bigeminy. PVCs are mainly uniform morphology. There is no diary submitted. There are no patient event markers. Impression: Abnormal 24-hour monitor due to increased frequency PVCs, about 20% of the heartbeats, about 19,000 during 24 hours. No diary submitted and no patient event markers present. Procedure Note Tj Gordon MD - 11/22/2018 24-hour monitor: Baseline rhythm is sinus with a minimum heart rate 51maximum 103 average 65 bpm. Occasional atrial ectopy present. There is amarked increase in frequency of ventricular ectopy, about 19,000 PVCsduring the recording. These are mainly isolated PVCs with occasionalcouplets. There is occasional ventricular bigeminy. PVCs are mainlyuniform morphology. There is no diary submitted. There are no patientevent markers. Impression: Abnormal 24-hour monitor due to increased frequency PVCs,about 20% of the heartbeats, about 19,000 during 24 hours. No diarysubmitted and no patient event markers present. us Satish Condon MD CV CARDIAC SERVICES ORDERABLE S Final Result documented in this encounter Visit Diagnoses Diagnosis PVC's (premature ventricular contractions) Other premature beats PVC's (premature ventricular contractions) Other premature beats documented in this encounter Care Teams Process Expert Relationship Specialty Start Date End Date Peter Harding MD [address] [place] [address] PCP - General Internal Medicine 11/20/18 10/25/24 Naina Steve MD [address] [place] [phone] PCP - General Internal Medicine 10/26/24 documented as of this encounter Additional Source Comments The information contained in this document represents components of the legal health record. It is not the complete legal health record.[facility]
--- OUTSIDE RECORDS SUMMARY | 2025-08-28 10:34 | XMS_ITS | Clinical Summary ---
Author Organization [facility] Address [address] [place] [phone] Phone Care Team Providers Care Director Of Teenage Activities Name Role Phone Naina Steve MD Primary Care Provider [phone] Allergies No known active allergies Medications DILT-XR 120 mg 24 hr capsule Take 1 capsule (120 mg total) by mouth 1 (one) time each day. for 30 days 01/11/20 25 Active Eliquis 5 mg tablet Take 1 tablet (5 mg total) by mouth 2 (two) times a day. 01/11/20 25 Active donepeziL (ARICEPT) 10 mg tablet Take 1 tablet (10 mg total) by mouth at bedtime. 03/06/20 25 Active levothyroxine (SYNTHROID, LEVOTHROID) 50 mcg tablet TAKE 1 TABLET (50 MCG TOTAL) BY MOUTH EVERY DAY BEFORE BREAKFAST 90 tablet 1 04/01/20 25 Active dexAMETHasone (DECADRON) 4 mg tabletIndicati ons:Smoldering multiple myeloma (SMM) Take 3 tabs(12 mg) by mouth once a week 36 each 11 04/19/20 25 Active losartan (COZAAR) 50 mg tablet TAKE 1 AND 1/2 TABLETS BY MOUTH DAILY 135 tablet 1 04/25/20 25 Active pantoprazole (PROTONIX) 40 mg EC tablet Take 1 tablet (40 mg total) by mouth 1 (one) time each day. for 90 days 90 tablet 1 06/24/20 25 Active pomalidomide (Pomalyst) 2 mg capsuleIndicat ions:Smolderin g multiple myeloma (SMM) TAKE 1 CAPSULE BY MOUTH 1 TIME A DAY FOR 21 DAYS ON THEN 7 DAYS OFF 21 capsule 08/16/20 Active pomalidomide (Pomalyst) 2 mg capsuleIndicat ions:Smolderin g multiple myeloma (SMM) TAKE 1 CAPSULE BY MOUTH 1 TIME A DAY FOR 21 DAYS ON THEN 7 DAYS OFF 21 capsule 07/25/20 25 025 Discontinued Active Problems Problem Noted Date Diagnosed Date Atrial fibrillation ([facility] V24, CMS/[facility] V28) 0 03/07/2025 Primary hypertension 09/27/2024 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 Gastro-esophageal reflux disease without esophag itis 03/16/2021 Encounters Date Type Department Care Team Description 06/28/2025 10:15 AM EDT Office Visit [facility] Hematology Oncology [address] [place] [phone] Jose Francisco Izquierdo MD Smoldering multiple myeloma (SMM) (Primary Dx); Pancytopenia ([facility] V24, [facility] V28); IgA monoclonal gammopathy 06/24/2025 2:00 PM EDT Office Visit Adult Medicine [address] [address] Iván Robles PA Primary hypertension (Primary Dx); Gastro-esophageal reflux disease without esophagitis; Acquired hypothyroidism; Constipation, unspecified constipation type 06/12/2025 Telephone Adult [address] [address] Naina Steve MD from Last 3 Months Surgical History Surgery Date Site/Laterality Comments CHOLECYSTECTOMY PROCEDURE:CHOLECYSTECTOMY TONSILLECTOMY PROCEDURE:TONSILLECTOMY COLONOSCOPY 02/27/2007 PROCEDURE: HISTORICAL COLONOSCOPY TONSILLECTOMY PROCEDURE: HISTORICAL TONSILLECTOMY CHOLECYSTECTOMY 1993 PROCEDURE: HISTORICAL CHOLECYSTECTOMY; COMMENT: Dr. Garcia Medical History Medical History Date Comments Monoclonal gammopathy DX:Monoclo nal gammopathy Anemia DX:Anemia Vitamin D deficiency DX:Vitamin D deficiency Chronic bronchitis (CMS/HCC V24, CMS/HCC V28) DX:Chronic bronchitis (HCC) Esophageal ulcer DX:Esophageal u lcer Osteoporosis DX:Osteoporosis GERD (gastroesophageal reflu x disease) DX:GERD (gastroesophageal re flux disease) Hypertension DX:Hypertension Diabetes mellitus ([facility] V 24, [facility] V28) DX:Diabetes mellitus ([facility]) Heart disease DX:Heart disease Hypertension 03/16/2021 DX:Hypertension Multiple myeloma ([facility] V2 4, [facility] V28) 03/16/2021 DX:Multiple myeloma ([facility]); C OMMENT: Sees Dr. Izquierdo Stress incontinence 03/16/2021 DX:Stress [...] COMMENT: mild case/ no hospitalization Pulmonary fibrosis ([facility] V24, [facility] V28) Family History Medical History Relation Name Comments [...] Sign Reading Time Taken Comments Blood Pressure 134/59 06/28/2025 10:12 AM EDT Pulse 72 06/28/2025 10:12 AM EDT Temperature 35.9 C (96.6 F) 06/28/2025 10:12 AM EDT Respiratory Rate 12 06/24/2025 1:58 PM EDT Oxygen Saturation 100% 06/28/2025 10:12 AM EDT Inhaled Oxygen Concentration - - Weight 64.4 kg (142 lb) 06/28/2025 10:12 AM EDT Height 162.6 cm (5' 4 ) 06/24/2025 1:58 PM EDT Body Mass Index 24.37 06/24/2025 1:58 PM EDT Plan of Treatment Upcoming Encounters Date Type Department Care Team (Late st Contact Info) Description 10/23/2025 10:00 AM EST Office Visit [facility] Hematology Oncology [address] [place] [address] Jose Francisco Izquierdo MD [address] [place] [address] 10/24/2025 9:30 AM EST Office Visit Adult Medicine [address] [phone] Iván Robles PA [address] [place] [address] Health Maintenance Due Date Last Done Comments Pneumococcal Vaccine: 50+ Years (2 of 2 - PCV) 10/29/2011 10/29/2010 Zoster Vaccines (1 of 2) 07/26/2016 05/31/2016 RSV Immunization Adult Patients (1 - 1-dose 75+ series) 2021 Falls Risk Assessment 10/21/2022 Medicare Annual Wellness Visit 10/21/2022 Social Influencers of Health Screening 10/21/2022 Depression Screening 11/14/2024 COVID-19 Vaccine (6 - Pfizer risk season) 2025 08/09/2024, 04/19/2022, 09/23/2021, Additional history exists Hypertension/CHF/CAD Annual BMP Blood Test 06/24/2026 06/24/2025, 02/19/2025, 01/02/2025, Additional history exists DTaP,Tdap,and Td Vaccines (2 - Td or Tdap) 08/20/2029 08/20/2019 Cholesterol Screening (Lipid Panel) 06/24/2030 06/24/2025, 08/28/2024 Osteoporosis Screening (Bone Density Screening) 01/07/2031 01/07/2021 Hepatitis C Screening Completed 05/04/2022, 022 Influenza Vaccine Completed 08/16/2025, , 09/10/2023, Additional history exists HIB Vaccines Aged Out [...] age to complete this topic Meningococcal B Vaccine Aged Out No l onger eligible based on patient's age to complete this topic RSV Immunization Patients Under 20 months Aged Out No longer eligible based on patient's age to complete this topic Varicella Vaccines Aged Out No longer eligible based on patient's age to complete this topic Procedures Procedure Name Priority Date/Time Associated Diagnosis Comments CBC WITH AUTO DIFFERENTIAL Routine 06/24/2025 2:50 PM EDT Smoldering multiple myeloma (SMM) IMMUNOGLOBULINS IGG, IGA, IGM Routine 06/24/2025 2:50 PM EDT Malignant hypertension LIPID PANEL WITH REFLEX TO DIRECT LDL Routine 06/24/2025 2:50 PM EDT Primary hypertension THYROID STIMULATING HORMONE WITH REFLEX TO FREE T4 AND FREE T3 Routine 06/24/2025 2:50 PM EDT Acquired hypothyroidism KAPPA-LAMBDA QUANTITATIVE FREE LIGHT CHAINS Routine 06/24/2025 2:50 PM EDT Smoldering multiple myeloma (SMM) COMPREHENSIVE METABOLIC PANEL Routine 06/24/2025 2:50 PM EDT Smoldering multiple myeloma (SMM) CBC AND DIFFERENTIAL Routine 06/24/2025 2:50 PM EDT Smoldering multiple myeloma (SMM) EXTERNAL STRESS TEST 06/18/2025 HEPATITIS C SCREENING Routine 05/04/2022 [facility] DEXA AXIAL SKELETON Routine 01/07/2021 5:06 PM EST Encounter for screening for osteoporosis from Last 3 Months or Most Recently Relevant to Health Maintenance Results * Thyroid stimulating hormone with reflex to free t4 and free t3 (06/24/2025 2:50 PM EDT) [facility] TSH 1.74 0.40 - 4.00 mcIU/mL LAB CHEMISTRY METHOD 06/24/2025 6:18 PM EDT [facility] Blood Venous blood specimen / Unknown Venipuncture / Unknown 06/24/2025 2:50 PM EDT 06/24/2025 4:34 PM EDT us Naina Steve MD LAB BLOOD ORDERABLES Final Resul t [facility] [address] [place] [address], [place] [phone] * (ABNORMAL) Lipid panel with reflex to direct LDL (06/24/2025 2:50 PM EDT) [facility] Cholesterol 239(H) 0 - 200 mg/dL LAB CHEMISTRY METHOD 06/24/2025 5:43 PM EDT [facility] Triglycerides 173(H) 0 - 150 mg/dL LAB CHEMISTRY METHOD 06/24/2025 5:43 PM EDT [facility] HDL 78 >=40 mg/dL LAB CHEMISTRY METHOD 06/24/2025 5:43 PM EDT [facility] LDL Calculated 126(H) 0 - 100 mg/dL LAB CHEMISTRY METHOD 06/24/2025 5:43 PM EDT [facility] Comment:Estimated LDL Calcul ated using equation: Total cholesterol - HDL cholesterol - (Triglycerides/5) VLDL Cholesterol Luigi 34.6 mg/dL LAB CHEMISTRY METHOD 06/24/2025 5:43 PM EDT [facility] Non HDL Chol. (LDL+VLDL) 161(H) <145 mg/dL LAB CHEMISTRY METHOD 06/24/2025 5:43 PM EDT [facility] Chol/HDL Ratio 3.1 0.0 - 4.4 LAB CHEMISTRY METHOD 06/24/2025 5:43 PM EDT [facility] Blood Venous blood specimen / Unknown Venipuncture / Unknown 06/24/2025 2:50 PM EDT 06/24/2025 4:34 PM EDT us Naina Steve MD LAB BLOOD ORDERABLES Final Resul t [facility] [address] [place] [address], * (ABNORMAL) Gambell-lambda free light chains, quantitative (06/24/2025 2:50 PM EDT) Gambell Free Light Chain 4.11(H) 0.33 - 1.94 mg/dL 06/27/2025 11:47 AM EDT [facility] Lambda Free Light Chain 3.73(H) 0.57 - 2.63 mg/dL 06/27/2025 11:47 AM EDT [facility] Gambell/Lambda FLC Ratio 1.10 0.26 - 1.65 06/27/2025 11:47 AM EDT [facility] Comment: Test performed at [facility], [address], [place] [address] Maryjane Lujan MD, PhD - Resource Technician Blood Venous blood specimen / Unknown Venipuncture / Unknown 06/24/2025 2:50 PM EDT 06/24/2025 4:34 PM EDT us Jose Francisco Izquierdo MD LAB BLOOD ORDERABLES Final R esult [facility] [address] [place] [address] * (ABNORMAL) CBC auto differential (06/24/2025 2:50 PM EDT) WBC 7.6 4.8 - 10.8 K/mcL LAB HEMETOLOGY METHOD 06/24/2025 5:18 PM EDT [facility] RBC 3.20(L) 3.80 - 4.80 M/mcL LAB HEMETOLOGY METHOD 06/24/2025 5:18 PM EDT [facility] Hemoglobin 10.5(L) 11.5 - 16.0 g/dL LAB HEMETOLOGY METHOD 06/24/2025 5:18 PM EDT [facility] Hematocrit 32.8(L) 35.0 - 47.0 % LAB HEMETOLOGY METHOD 06/24/2025 5:18 PM EDT [facility] MCV 103.5(H) 79.0 - 98.0 FL LAB HEMETOLOGY METHOD 06/24/2025 5:18 PM EDT [facility] MCH 33.1(H) 27.0 - 32.0 pcg LAB HEMETOLOGY METHOD 06/24/2025 5:18 PM EDT [facility] MCHC 32.0 32.0 - 37.0 g/dL LAB HEMETOLOGY METHOD 06/24/2025 5:18 PM EDT [facility] RDW 14.6 11.0 - 15.0 % LAB HEMETOLOGY METHOD 06/24/2025 5:18 PM EDT [facility] Platelets 362 130 - 400 K/mcL LAB HEMETOLOGY METHOD 06/24/2025 5:18 PM EDT [facility] MPV 9.8 7.0 - 11.0 FL LAB HEMETOLOGY METHOD 06/24/2025 5:18 PM [facility] NRBC 0.0 <1.0 % LAB HEMETOLOGY METHOD 06/24/2025 5:18 PM EDT [facility] NRBC Absolute 0.00 <0.10 K/mcL LAB HEMETOLOGY METHOD 06/24/2025 5:18 PM [facility] Neutrophils Relative 33.8 % LAB HEMETOLOGY METHOD 06/24/2025 5:18 PM [facility] Lymphocytes Relative 42.1 % LAB HEMETOLOGY METHOD 06/24/2025 5:18 PM [facility] Monocytes Relative 19.9 % LAB HEMETOLOGY METHOD 06/24/2025 5:18 PM [facility] Eosinophils Relative 1.7 % LAB HEMETOLOGY METHOD 06/24/2025 5:18 PM [facility] Basophils Relative 1.3 % LAB HEMETOLOGY METHOD 06/24/2025 5:18 PM [facility] Immature Granulocytes Relative 1.2 % LAB HEMETOLOGY METHOD 06/24/2025 5:18 PM EDT [facility] Neutrophils Absolute 2.55 1.50 - 7.00 K/mcL LAB HEMETOLOGY METHOD 06/24/2025 5:18 PM EDT [facility] Lymphocytes Absolute 3.19 1.00 - 5.00 K/mcL LAB HEMETOLOGY METHOD 06/24/2025 5:18 PM [facility] Monocytes Absolute 1.51(H) 0.20 - 1.00 K/mcL LAB HEMETOLOGY METHOD 06/24/2025 5:18 PM EDT [facility] Eosinophils Absolute 0.13 0.00 - 0.50 K/[facility] LAB HEMETOLOGY METHOD 06/24/2025 5:18 PM EDT [facility] Basophils Absolute 0.10 0.00 - 0.20 K/[facility] LAB HEMETOLOGY METHOD 06/24/2025 5:18 PM EDT [facility] Immature Granulocytes Absolute 0.09(H) 0.00 - 0.03 K/[facility] HEMETOLOGY METHOD 06/24/2025 5:18 PM EDT [facility] Blood Venous blood specimen / Unknown Venipuncture / Unknown 06/24/2025 2:50 PM EDT 06/24/2025 4:30 PM EDT Jose Francisco Izquierdo MD LAB BLOOD ORDERABLES Final R esult Performing Organization Address City/[facility]/ZIP Co de Phone Number [facility] [address] [place] [address], [place] [phone] * (ABNORMAL) Immunoglobulins IgG, IgA, IgM (06/24/2025 2:50 PM EDT) Total IgG 1,340 549 - 1,584 mg/dL LAB CHEMISTRY METHOD 06/24/2025 5:53 PM EDT [facility] IgA 482(H) 61 - 348 mg/dL LAB CHEMISTRY METHOD 06/24/2025 5:53 PM EDT [facility] IgM 40 23 - 259 mg/dL LAB CHEMISTRY METHOD 06/24/2025 5:53 PM EDT [facility] Blood Venous blood specimen / Unknown Venipuncture / Unknown 06/24/2025 2:50 PM EDT 06/24/2025 4:34 PM EDT us Jose Francisco Izquierdo MD LAB BLOOD ORDERABLES Final R esult [facility] [address] [place] [address], [place] [phone] * (ABNORMAL) Comprehensive metabolic panel (06/24/2025 2:50 PM EDT) Sodium 137 133 - 145 mmol/L LAB CHEMISTRY METHOD 06/24/2025 5:47 PM EDT [facility] Potassium 3.9 3.5 - 5.5 mmol/L LAB CHEMISTRY METHOD 06/24/2025 5:47 PM EDT [facility] Chloride 108 96 - 110 mmol/L LAB CHEMISTRY METHOD 06/24/2025 5:47 PM EDT [facility] CO2 25 21 - 32 mmol/L LAB CHEMISTRY METHOD 06/24/2025 5:47 PM EDT [facility] Anion Gap 4 3 - 11 LAB CHEMISTRY METHOD 06/24/2025 5:47 PM [facility] Glucose 76 70 - 100 mg/dL LAB CHEMISTRY METHOD 06/24/2025 5:47 PM [facility] BUN 12 5 - 25 mg/dL LAB CHEMISTRY METHOD 06/24/2025 5:47 PM [facility] Creatinine 0.91 0.50 - 1.10 mg/dL LAB CHEMISTRY METHOD 06/24/2025 5:47 PM EDT [facility] eGFR 64 >=60 mL/min/1. 73m2 LAB CHEMISTRY METHOD 06/24/2025 5:47 PM EDT [facility] Comment:Calculation based on the Chronic Kidney Disease Epidemiology Collaboration (CKD-EPI) equation refit without adjustment for race. BUN/Creatinine Ratio 13.2 LAB CHEMISTRY METHOD 06/24/2025 5:47 PM T [facility] Calcium 8.6 8.5 - 10.5 mg/dL LAB CHEMISTRY METHOD 06/24/2025 5:47 PM [facility] AST (SGOT) 16 10 - 42 unit/L LAB CHEMISTRY METHOD 06/24/2025 5:47 PM EDT [facility] ALT (SGPT) 18 10 - 60 unit/L LAB CHEMISTRY METHOD 06/24/2025 5:47 PM EDT [facility] Alkaline Phosphatase 175(H) 42 - 121 unit/L LAB CHEMISTRY METHOD 06/24/2025 5:47 PM EDT [facility] Total Protein 6.8 6.0 - 8.0 g/dL LAB CHEMISTRY METHOD 06/24/2025 5:47 PM EDT [facility] Albumin 2.8(L) 3.2 - 5.0 g/dL LAB CHEMISTRY METHOD 06/24/2025 5:47 PM EDT [facility] Total Bilirubin 0.3 0.0 - 1.4 mg/dL LAB CHEMISTRY METHOD 06/24/2025 5:47 PM EDT [facility] Blood Venous blood specimen / Unknown Venipuncture / Unknown 06/24/2025 2:50 PM EDT 06/24/2025 4:34 PM EDT Jose Francisco Izquierdo MD LAB BLOOD ORDERABLES Final R esult [facility] [address] [place] [address], * External Stress Test (06/18/2025) Anatomical Region Laterality Modality Nuclear Medicine Provider [facility] CV STRESS PROCEDURES Fin al Result * Hepatitis C Screening (05/04/2022) Hepatitis C Screening Abstracted [facility] Provider HEALTH MAINTENANCE Final Result * [facility] DEXA AXIAL SKELETON (01/07/2021 5:06 PM EST) Anatomical Region Laterality Modality Mammography 01/07/2021 9:11 AM EST Narrative 01/07/2021 5:06 PM EST [facility] Diagnostic Imaging Department [address] [place] [address] Patient: JACQUELINE FINCH Eva Avila/Age/Sex: 1945 - 75 - F Unit#: [id number] Location/Status: SPDIMAM/REG CLI Mnemonic[facility] Ordering Physician: PETER HARDING MD Mike Dexa Axial Skeleton - 01/07/21941 History: Low estrogen state due to menopause. Comparison: 04/12/14 Findings: Bone densitometry is performed utilizing dual energy x-ray absorptiometry (DXA) in the [employer] unit. The lumbar spine and proximal femora are evaluated in the AP projection. The FRAX questionaire was completed. The results indicate osteoporosis, with a lumbar spine T-score of -3.8. There have been small, statistically significant decreases in bone mineral density in the bilateral total femurs since the previous study. The detailed DEXA report will be mailed to the referring physician's office. [employer] FRAX: 10-year Probability of Fracture: Major Osteoporotic 21.7 percent Hip 8.6 percent. IMPRESSION: Osteoporosis. [id number] Dictating Physician: RADHA SAINI MD Electronically Signed by: RADHA SAINI MD Dic Date/Time: 01/07/211704 Sign date/Time: 01/07/211705 Procedure Note Radha Saini MD - 11/02/2022 [facility] Diagnostic Imaging Department [address] [place] [id number] Patient: PRETTYLISHA /Age/Sex: 1945 - 75 - F Unit#: [id number] Location/Status: SPDIMAM/REG CLI Mnemonic/Ordering Site: [facility] Ordering Physician: PETER HARDING MD Mike Dexa Axial Skeleton - 01/07/21941 History: Low estrogen state due to menopause. Comparison: 04/12/14 Findings: Bone densitometry is performed utilizing dual energy x-ray absorptiometry(DXA) in the [employer] unit. The lumbar spine and proximal femora [...] 21.7 percent Hip 8.6 percent. IMPRESSION: Osteoporosis. [id number] Dictating Physician: RADHA SAINI MD Electronically Signed by: RADHA SAINI MD Dic Date/Time: 01/07/211704 Sign date/Time: 01/07/211705 Peter Harding MD IMG BI PROCEDURES Final Result from Last 3 Months or Most Recently Relevant to Health Maintenance Insurance [employer] Care Teams Director Of Teenage Activities Relationship Specialty Start Date End Date Naina Steve MD [address] [place] [phone] PCP - General 11/09/23
--- OUTSIDE RECORDS SUMMARY | 2025-08-28 10:34 | XMS_ITS | Encounter Summary ---
Author Organization [facility] Address [address] [place] [address] [place] [phone] Phone Care Team Providers Care Explosives Mixer Operator Name Role Phone Peter Harding MD Primary Care Provider [phone] Naina Steve MD Primary Care Provider [phone] Encounter Details Date Type Department Care Team (Late st Contact Info) Description 05/04/2022 Procedure Pass [facility], Ct Scan - [address] [address] Social History Tobacco Use Types Packs/Day Years [...] Info) Description 12/24/2025 3:00 PM EST Appointment [facility] Pulmonary and Critical Care Unit [address] [place] [address], [facility], [address] [place] [address] Jamison Gooden MD [address] [place] [phone] [email or web address] 12/24/2025 3:30 PM EST Office Visit [facility] [address] [place] [address], 2nd Floor, [address] [place] [address] Jamison Gooden MD [address] [place] [phone] [email or web address] documented as of this encounter Visit Diagnoses Not on filedocumented in this encounter Care Teams Explosives Mixer Operator Relationship Specialty Start Date End Date Peter Harding MD [address] [place] [address] PCP - General Internal Medicine 11/20/18 10/25/24 Naina Steve MD [address] [place] [phone] PCP - General Internal Medicine 10/26/24 documented as of this encounter Additional Source Comments The information contained in this document represents components of the legal health record. It is not the complete legal health record[facility]
== END 2025-08-28 11:32 | disposition home or self-care (01) ==
LOC: HO.HSM 09:24
PROVIDERS: PCP Internal Medicine; Referring Provider Internal Medicine; Visit Provider Psychiatry & Neurology Neurology
DX: G30.9 Alzheimer's disease, unspecified (principal); F02.80 Dementia in other diseases classified elsewhere, unspecified severity, without behavioral disturbance, psychotic disturbance, mood disturbance, and anxiety
CPT/HCPCS: 99214

== ENCOUNTER → 2025-08-28 09:23 | Outpatient (BNVA) | payer MEDICARE, SELFPAY | PROVIDERS: PCP Internal Medicine; Referring Provider Internal Medicine; Visit Provider Psychiatry & Neurology Neurology | DX: G30.9 Alzheimer's disease, unspecified (principal); F02.80 Dementia in other diseases classified elsewhere, unspecified severity, without behavioral disturbance, psychotic disturbance, mood disturbance, and anxiety | CPT/HCPCS: 99212 ==